=== PATIENT | female | born 1960 | race Caucasian/White ===

== ENCOUNTER 2017-03-31 08:27 | Emergency (ER) | payer MEDICARE, SELFPAY | END 2017-03-31 11:33 | disposition home or self-care (01) | PROVIDERS: Emergency Provider Emergency Medicine; Family Provider Emergency Medicine; Visit Provider Emergency Medicine | DX: J18.9 Pneumonia, unspecified organism (principal); J44.0 Chronic obstructive pulmonary disease with (acute) lower respiratory infection; E78.5 Hyperlipidemia, unspecified; Z79.01 Long term (current) use of anticoagulants; Z79.84 Long term (current) use of oral hypoglycemic drugs; Z79.4 Long term (current) use of insulin; Z79.899 Other long term (current) drug therapy; Z86.711 Personal history of pulmonary embolism; F17.210 Nicotine dependence, cigarettes, uncomplicated | CPT/HCPCS: 71020; 80053; 82550; 82553; 83605; 84484; 85025; 87040; 93005; 93041; 94640; 96365; 96367; 99284; J1956 ==

== ENCOUNTER 2017-05-06 15:14 | Outpatient (CLI) | payer MEDICARE, SELFPAY ==
[2017-05-08 15:04] LABS: PHA INR Fingerstick 3.2 (0.9-1.1)
== END 2017-05-06 17:06 | disposition home or self-care (01) ==
LOC: ACC 15:17
PROVIDERS: PCP Emergency Medicine; Visit Provider Emergency Medicine
DX: Z79.01 Long term (current) use of anticoagulants (principal); Z51.81 Encounter for therapeutic drug level monitoring
CPT/HCPCS: 85610; 99211; G0463

== ENCOUNTER 2017-05-30 08:40 | Outpatient (CLI) | payer MEDICARE, SELFPAY ==
[2017-05-30 14:19] LABS: PHA INR Fingerstick 2.5 (0.9-1.1)
== END 2017-05-30 16:31 | disposition home or self-care (01) ==
LOC: ACC 08:42
PROVIDERS: PCP Emergency Medicine; Visit Provider Emergency Medicine
DX: Z79.01 Long term (current) use of anticoagulants (principal); Z51.81 Encounter for therapeutic drug level monitoring
CPT/HCPCS: 85610; 99211; G0463

== ENCOUNTER 2017-06-02 20:11 | Emergency (ER) | payer MEDICARE, SELFPAY ==
--- NOTE | 2017-06-02 20:22 | XR_ITS ---
XR ankle RT min 3V HISTORY: Pain following injury ITS.REASON: TWISTED ANKLE ORDERING PHYSICIAN: Zaria Bowser PATIENT AGE: 56 years COMPARISON: None FINDINGS: No fracture or dislocation. No lytic or blastic change. There is normal mineralization.. The joint spaces are well-preserved. No significant degenerative/arthritic changes. No erosive changes evident. IMPRESSION: Negative ankle, no acute finding
[2017-06-02 20:31] VITALS: BP 161/92; PULSE 68; RESP 20; TEMP 36.6; O2SAT 96; BMI 30.4
--- NOTE | 2017-06-02 20:37 | HMH.EDUTC ---
[facility] – [place] Disposition Clinical Impression: Ankle sprain Disposition: Home, Self-Care Condition on Discharge: Good Instructions: DI for Ankle Pain Additional Instructions: *RICE, Rest the extremity, Ice 15-20 minutes 3-4 times daily, Compress- wear the max wrap as discussed as much as possible to help reduce swelling and pain, Elevate the extremity when at rest *Max wrap is for support and help control swelling, use it except in the shower. Be sure that is not to tight but not to loose either *Elevate when resting *Ibuprofen 600-800mg every 6-8 hours as needed for pain an inflammation. If need something more can take Tylenol in between doses of Ibuprofen to help Immediately follow up for new or worsening of symptoms, or no noticeable improvement over the next 3-5 days Referrals: Demario Gotti MD [Primary Care Provider] - Time of Disposition: 21:23 Medical Decision Making - Medical Records Medical records reviewed: Yes: I reviewed the patient's medical records. Vital Signs: 06/02/17 20:31 Temperature 97.8 F Temperature Source Temporal Artery Scan Pulse Rate [Right] 68 Respiratory Rate 20 Blood Pressure [Right Arm] 161/92 Blood Pressure Mean [Right Arm] 115 Blood Pressure Source [Right Arm] Automatic Cuff Blood Pressure Position [Right Arm] Sitting 02 Sat by Pulse Oximetry 96 Oxygen Delivery Method Room Air Orders (Tests/Meds): ORDERS Category Date Time Status XR ankle RT min 3V Stat Exams 06/02/17 20:22 Ordered - Radiology Data #1 Image(s): Ankle Image Reviewed: Yes I reviewed the patient's radiology image w/the ED provider Preliminary Findings: Normal/NAD, No Fracture Seen - Gabriel Inquiry Pt receiving controlled substance: No Gabriel was queried for this patient: No - Reevaluation(s) Reevaluation #1: Recommended crutches and paitent refused states that she may fall using crutches [facility] [place] HPI - General Stated complaint: stepped off step twisted right ankle Mode of Arrival: Ambulatory Source of Information: Patient Limitations: No Limitations Description of Symptoms (Recalled from Triage Doc. by RN): TWISTED RIGHT ANKLE TUESDAY MORNING HEENT Symptoms (Recalled from RN notes): No Resp Symptoms (Recalled from RN notes): No Skin Symptoms (Recalled from RN notes): No MS Symptoms (Recalled from RN notes): Yes Functional Status (Recalled from RN notes): N - History of Present Illness Provider Complaint: Patient states that she was stepping off her porch yesterday when her foot slipped on the step and twisted her right ankle State that she has been having pain and swelling in right foot and ankle ever since States that she went into work today and her boss noticed that her foot looked swollen so they recommended that she come in and get checked out - Related Data Home Medications Medication Instructions Recorded Confirmed Fluticasone/Vilanterol [Breo 1 inh INHALATION Q24H 06/02/17 06/02/17 Ellipta 100-25 Mcg INH] Insulin Detemir [Levemir 100 30 unit SUB-Q QHS 06/02/17 06/02/17 units/mL 10mL vial] buPROPion HCl [Wellbutrin 75mg 75 mg PO BID 06/02/17 06/02/17 Tablet] Previous Rx's Medication Instructions Recorded tizanidine 4 mg capsule 4 mg PO Q6H PRN #120 cap 05/23/17 Allergies Allergy/AdvReac Type Severity Reaction Status Date / Time rifampin [RIFAMPIN] Allergy Severe UNABLE TO Verified 06/02/17 20:35 BREATH tetanus and diphtheria Allergy Mild RED Verified 06/02/17 20:35 toxoids [TETANUS & DIPHTHERIA TOXOIDS] - Worker's Comp Is this a Worker's Comp case?: No [facility] History I have reviewed the patient's past medical history: Yes Medical History: Reports:: Diabetes Mellitus Type 1 - *Social History Smoking Status: Current every day smoker Tobacco Type: cigarettes Alcohol Intake: never - Psychiatric History Expresses thoughts of harming self/others: None Suicide Plan Description: No Plan ROS Obtained: Yes All systems re
--- NOTE | 2017-06-02 20:41 | ED_ITS ---
[facility] [place] Disposition Clinical Impression: Ankle sprain Disposition: Home, Self-Care Condition on Discharge: Good Instructions: DI for Ankle Pain Additional Instructions: *RICE, Rest the extremity, Ice 15-20 minutes 3-4 times daily, Compress- wear the max wrap as discussed as much as possible to help reduce swelling and pain, Elevate the extremity when at rest *Max wrap is for support and help control swelling, use it except in the shower. Be sure that is not to tight but not to loose either *Elevate when resting *Ibuprofen 600-800mg every 6-8 hours as needed for pain an inflammation. If need something more can take Tylenol in between doses of Ibuprofen to help Immediately follow up for new or worsening of symptoms, or no noticeable improvement over the next 3-5 days Referrals: Demario Gotti MD [Primary Care Provider] - Time of Disposition: 21:23 Medical Decision Making - Medical Records Medical records reviewed: Yes: I reviewed the patient's medical records. Vital Signs: 06/02/17 20:31 Temperature 97.8 F Temperature Source Temporal Artery Scan Pulse Rate [Right] 68 Respiratory Rate 20 Blood Pressure [Right Arm] 161/92 Blood Pressure Mean [Right Arm] 115 Blood Pressure Source [Right Arm] Automatic Cuff Blood Pressure Position [Right Arm] Sitting 02 Sat by Pulse Oximetry 96 Oxygen Delivery Method Room Air Orders (Tests/Meds): ORDERS Category Date Time Status XR ankle RT min 3V Stat Exams 06/02/17 20:22 Ordered - Radiology Data #1 Image(s): Ankle Image Reviewed: Yes I reviewed the patient's radiology image w/the ED provider Preliminary Findings: Normal/NAD, No Fracture Seen - Gabriel Inquiry Pt receiving controlled substance: No Gabriel was queried for this patient: No - Reevaluation(s) Reevaluation #1: Recommended crutches and paitent refused states that she may fall using crutches [facility] [place] HPI - General Stated complaint: stepped off step twisted right ankle Mode of Arrival: Ambulatory Source of Information: Patient Limitations: No Limitations Description of Symptoms (Recalled from Triage Doc. by RN): TWISTED RIGHT ANKLE TUESDAY MORNING HEENT Symptoms (Recalled from RN notes): No Resp Symptoms (Recalled from RN notes): No Skin Symptoms (Recalled from RN notes): No MS Symptoms (Recalled from RN notes): Yes Functional Status (Recalled from RN notes): N - History of Present Illness Provider Complaint: Patient states that she was stepping off her porch yesterday when her foot slipped on the step and twisted her right ankle State that she has been having pain and swelling in right foot and ankle ever since States that she went into work today and her boss noticed that her foot looked swollen so they recommended that she come in and get checked out - Related Data Home Medications Medication Instructions Recorded Confirmed Fluticasone/Vilanterol [Breo 1 inh INHALATION Q24H 06/02/17 06/02/17 Ellipta 100-25 Mcg INH] Insulin Detemir [Levemir 100 30 unit SUB-Q QHS 06/02/17 06/02/17 units/mL 10mL vial] buPROPion HCl [Wellbutrin 75mg 75 mg PO BID 06/02/17 06/02/17 Tablet] Previous Rx's Medication Instructions Recorded tizanidine 4 mg capsule 4 mg PO Q6H PRN #120 cap 05/23/17 Allergies Allergy/AdvReac Type Severity Reaction Status Date /
[2017-06-02 21:20] VITALS: BP 142/88; PULSE 88; RESP 20; TEMP 37.1
== END 2017-06-02 21:20 | disposition home or self-care (01) ==
PROVIDERS: Emergency Provider Nurse Practitioner; Family Provider Emergency Medicine; PCP Emergency Medicine
DX: S93.401A Sprain of unspecified ligament of right ankle, initial encounter (principal); X50.1XXA Overexertion from prolonged static or awkward postures, initial encounter; Y92.018 Other place in single-family (private) house as the place of occurrence of the external cause; E10.9 Type 1 diabetes mellitus without complications; F17.210 Nicotine dependence, cigarettes, uncomplicated; Z88.7 Allergy status to serum and vaccine; Z79.4 Long term (current) use of insulin
CPT/HCPCS: G0463; 73610; 99202

== ENCOUNTER 2017-06-29 13:12 | Outpatient (CLI) | payer MEDICARE, SELFPAY ==
[2017-06-29 15:14] LABS: PHA INR Fingerstick 2.9 (0.9-1.1)
== END 2017-06-29 15:16 | disposition home or self-care (01) ==
LOC: ACC 13:13
PROVIDERS: Family Provider Emergency Medicine; PCP Emergency Medicine; Visit Provider Emergency Medicine
DX: Z79.01 Long term (current) use of anticoagulants (principal)
CPT/HCPCS: 85610; 99211; G0463

== ENCOUNTER → 2017-07-18 14:16 | Outpatient (REF) | payer MEDICARE, SELFPAY | LOC: LAB 14:16 | PROVIDERS: Visit Provider Nurse Practitioner Family | DX: L02.01 Cutaneous abscess of face (principal) | CPT/HCPCS: 87070; 87077; 87186; 87205 ==

== ENCOUNTER 2017-07-21 13:47 | Outpatient (CLI) | payer MEDICARE, SELFPAY ==
[2017-07-21 15:55] LABS: PHA INR Fingerstick 1.6 (0.9-1.1)
== END 2017-07-21 14:56 | disposition home or self-care (01) ==
LOC: ACC 13:50
PROVIDERS: PCP Emergency Medicine; Visit Provider Emergency Medicine
DX: Z79.01 Long term (current) use of anticoagulants (principal); Z51.81 Encounter for therapeutic drug level monitoring
CPT/HCPCS: 85610; 99211; G0463

== ENCOUNTER 2017-10-14 15:27 | Outpatient (CLI) | payer MEDICARE, SELFPAY ==
[2017-10-14 16:09] LABS: PHA INR Fingerstick 1.4 (0.9-1.1)
== END 2017-10-14 16:12 | disposition home or self-care (01) ==
LOC: ACC 15:29
PROVIDERS: PCP Emergency Medicine; Visit Provider Emergency Medicine
DX: Z79.01 Long term (current) use of anticoagulants (principal); Z51.81 Encounter for therapeutic drug level monitoring
CPT/HCPCS: 85610; 99211; G0463

== ENCOUNTER 2017-11-01 15:44 | Outpatient (CLI) | payer MEDICARE, SELFPAY ==
[2017-11-01 16:26] LABS: PHA INR Fingerstick 1.9 (0.9-1.1)
== END 2017-11-01 16:28 | disposition home or self-care (01) ==
LOC: ACC 15:46
PROVIDERS: PCP Emergency Medicine; Visit Provider Emergency Medicine
DX: Z79.01 Long term (current) use of anticoagulants (principal); Z51.81 Encounter for therapeutic drug level monitoring
CPT/HCPCS: 85610; 99211; G0463

== ENCOUNTER 2017-11-18 15:23 | Outpatient (CLI) | payer MEDICARE, SELFPAY ==
[2017-11-18 16:14] LABS: PHA INR Fingerstick 2.1 (0.9-1.1)
== END 2017-11-18 16:16 | disposition home or self-care (01) ==
LOC: ACC 15:24
PROVIDERS: PCP Emergency Medicine; Visit Provider Emergency Medicine
DX: Z79.01 Long term (current) use of anticoagulants (principal); Z51.81 Encounter for therapeutic drug level monitoring; Z86.718 Personal history of other venous thrombosis and embolism
CPT/HCPCS: 85610; 99211; G0463

== ENCOUNTER → 2017-11-25 16:14 | Outpatient (CLI) | payer MEDICARE, SELFPAY ==
[2017-11-25 17:56] LABS: Basophils # 0.1 K/mm3 (0-0.2); Basophils % 0.5 % (0.1-2.0); Eosinophils # 0.2 K/mm3 (0.0-0.4); Hematocrit 36.4 % (37.0-47.0); Hemoglobin 11.6 g/dL (12.2-16.2); Lymphocytes # 3.1 K/mm3 (0.7-4.5); Lymphocytes % 34.5 K/mm3 (10-50); Mean Corpuscular Hemoglobin 27.7 pg (27.0-31.2); Mean Corpuscular Volume 86.6 fl (81-99); Mean Platelet Volume 10.7 fl (7.4-10.4); Monocytes # 0.4 K/mm3 (0.1-1.0); Monocytes % 4.5 % (1.7-9.3); Neutrophils # 5.3 K/mm3 (1.8-7.8); Neutrophils % 58.5 % (37.0-80.0); Platelet Count 202 K/mm3 (142-424); Red Cell Distribution Width 14.5 % (11.5-17.5); White Blood Count 9.1 K/mm3 (4.8-10.8)
[2017-11-25 18:00] LABS: Alanine Aminotransferase 25 U/L (12-78); Albumin Level 3.1 gm/dL (3.4-5.0); Albumin/Globulin Ratio 0.9 (1.1-1.8); Alkaline Phosphatase 74 U/L (46-116); Anion Gap 14.6 mEq/L (5-15); Aspartate Amino Transferase 12 U/L (15-37); Bilirubin,Total 0.1 mg/dL (0.2-1.0); Blood Urea Nitrogen 9 mg/dL (7-18); Calcium 8.2 mg/dL (8.5-10.1); Carbon Dioxide 27 mmol/L (21.0-32.0); Chloride 104 mmol/L (98-107); Creatinine,Serum 1.03 mg/dL (0.55-1.02); Estimated Glomerular Filt Rate 55 ml/min (>60); GFR (African American) 67 ML/MIN (>60); Globulin 3.4 gm/dl (1.3-3.2); Glucose 148 mg/dL (74-106); Potassium 3.6 mmoL/L (3.5-5.1); Sodium 142 mmol/L (136-145); Total Protein,Serum 6.5 gm/dL (6.4-8.2)
== END ==
PROVIDERS: Nurse Practitioner Family; Family Provider Emergency Medicine; PCP Emergency Medicine; Visit Provider Emergency Medicine
DX: E03.9 Hypothyroidism, unspecified; R19.7 Diarrhea, unspecified
CPT/HCPCS: 36415; 80053; 85025

== ENCOUNTER → 2017-12-09 15:10 | Outpatient (CLI) | payer MEDICARE, SELFPAY ==
[2017-12-09 15:51] LABS: INR 2.48 (0.9-1.1); Prothrombin Time 24.9 seconds (9.4-11.8)
[2017-12-09 16:05] LABS: Hemoglobin A1C 10.6 % (0.0-7.0)
[2017-12-09 16:37] LABS: Blood Urea Nitrogen 17 mg/dL (7-18); Estimated Glomerular Filt Rate 46 ml/min (>60); GFR (African American) 56 ML/MIN (>60)
== END ==
PROVIDERS: Nurse Practitioner Family; Family Provider Emergency Medicine; PCP Emergency Medicine; Visit Provider Emergency Medicine
DX: E11.9 Type 2 diabetes mellitus without complications (principal); Z79.01 Long term (current) use of anticoagulants; Z51.81 Encounter for therapeutic drug level monitoring
CPT/HCPCS: 36415; 82565; 83036; 84520; 85610

== ENCOUNTER → 2017-12-27 15:49 | Outpatient (REF) | payer MEDICARE, SELFPAY ==
[2017-12-29 13:23] LABS: Creatinine, Urine 22.5 mg/dL (Not Estab.); Microalbumin, Urine <3.0 ug/mL (Not Estab.)
== END ==
LOC: LAB 15:49
PROVIDERS: Visit Provider Emergency Medicine
DX: E11.9 Type 2 diabetes mellitus without complications (principal)
CPT/HCPCS: 82043; 82570

== ENCOUNTER 2018-01-20 15:35 | Outpatient (CLI) | payer MEDICARE, SELFPAY ==
[2018-01-20 16:17] LABS: PHA INR Fingerstick 2.1 (0.9-1.1)
== END 2018-01-20 16:29 | disposition home or self-care (01) ==
LOC: ACC 15:36
PROVIDERS: Family Provider Emergency Medicine; PCP Emergency Medicine; Visit Provider Emergency Medicine
DX: Z51.81 Encounter for therapeutic drug level monitoring (principal); Z79.01 Long term (current) use of anticoagulants; Z86.718 Personal history of other venous thrombosis and embolism
CPT/HCPCS: 85610; 99211; G0463

== ENCOUNTER 2018-02-09 15:43 | Outpatient (CLI) | payer MEDICARE, SELFPAY ==
--- NOTE | 2018-02-09 16:05 | MM_ITS ---
MM Dig screening mamm BI w/CAD CAD Screening COMPARISON: None, patient had previous mammograms more than 10 years ago in [place] and does not no location INDICATION: There is a history of breast cancer patient's mother and maternal cousin TECHNIQUE: Standard CC and MLO images were obtained. R2 CAD reviewed. FINDINGS: Moderate diffuse heterogenic fibro glandular densities are seen throughout both breasts. There is a mole marker in each breast. There is asymmetric fat and/or fatty breast parenchyma right axilla when compared to the left the patient states that she has known about this finding since she was a teenager. There are few benign-appearing calcifications right breast. There is focal arterial calcification in the subareolar region of each breast. There is no suspicious lesion and there are no suspicious microcalcifications. IMPRESSION: Moderate heterogenic density with no suspicious lesion seen BI-RADS Category: 2 Benign Finding(s) RECOMMENDED FOLLOW-UP: 1YR - 1 YEAR FOLLOW-UP (A letter has been sent to the patient regarding results of the study.)
[2018-02-09 16:29] LABS: PHA INR Fingerstick 1.9 (0.9-1.1)
== END 2018-02-09 16:31 | disposition home or self-care (01) ==
LOC: ACC 15:44
PROVIDERS: PCP Emergency Medicine; Visit Provider Emergency Medicine
DX: Z12.31 Encounter for screening mammogram for malignant neoplasm of breast (principal); Z79.01 Long term (current) use of anticoagulants
CPT/HCPCS: 77067; 85610; 99211; G0463

== ENCOUNTER 2018-03-20 15:04 | Outpatient (CLI) | payer MEDICARE, SELFPAY ==
[2018-03-20 15:50] LABS: PHA INR Fingerstick 2.3 (0.9-1.1)
== END 2018-03-20 15:53 | disposition home or self-care (01) ==
LOC: ACC 15:05
PROVIDERS: PCP Emergency Medicine; Visit Provider Emergency Medicine
DX: Z51.81 Encounter for therapeutic drug level monitoring (principal); Z79.01 Long term (current) use of anticoagulants
CPT/HCPCS: 85610; 99211; G0463

== ENCOUNTER 2018-04-12 15:53 | Outpatient (CLI) | payer MEDICARE, SELFPAY ==
[2018-04-12 16:31] LABS: PHA INR Fingerstick 2.4 (0.9-1.1)
== END 2018-04-12 16:33 | disposition home or self-care (01) ==
LOC: ACC 15:54
PROVIDERS: PCP Emergency Medicine; Visit Provider Emergency Medicine
DX: Z51.81 Encounter for therapeutic drug level monitoring (principal); Z79.01 Long term (current) use of anticoagulants
CPT/HCPCS: 85610; 99211; G0463

== ENCOUNTER → 2018-04-24 15:24 | Outpatient (CLI) | payer MEDICARE, SELFPAY ==
[2018-04-24 15:44] LABS: INR 1.07 (0.9-1.1)
== END ==
PROVIDERS: Visit Provider Surgery
DX: Z98.890 Other specified postprocedural states (principal)
CPT/HCPCS: 36415; 85610

== ENCOUNTER 2018-05-19 14:47 | Outpatient (CLI) | payer MEDICARE, SELFPAY ==
[2018-05-19 15:55] LABS: PHA INR Fingerstick 2.8 (0.9-1.1)
== END 2018-05-19 15:57 | disposition home or self-care (01) ==
LOC: ACC 14:48
PROVIDERS: PCP Emergency Medicine; Visit Provider Emergency Medicine
DX: Z51.81 Encounter for therapeutic drug level monitoring (principal); Z79.01 Long term (current) use of anticoagulants; Z86.718 Personal history of other venous thrombosis and embolism
CPT/HCPCS: 85610; 99211; G0463

== ENCOUNTER 2018-07-07 15:06 | Outpatient (CLI) | payer MEDICARE, SELFPAY ==
[2018-07-07 15:31] LABS: PHA INR Fingerstick 2.8 (0.9-1.1)
== END 2018-07-07 15:35 | disposition home or self-care (01) ==
LOC: ACC 15:08
PROVIDERS: PCP Emergency Medicine; Visit Provider Emergency Medicine
DX: Z51.81 Encounter for therapeutic drug level monitoring (principal); Z79.01 Long term (current) use of anticoagulants; Z86.718 Personal history of other venous thrombosis and embolism
CPT/HCPCS: 85610; 99211; G0463

== ENCOUNTER 2018-08-24 15:42 | Outpatient (CLI) | payer MEDICARE, SELFPAY ==
[2018-08-24 16:29] LABS: PHA INR Fingerstick 3.2 (0.9-1.1)
== END 2018-08-24 16:32 | disposition home or self-care (01) ==
LOC: ACC 15:43
PROVIDERS: PCP Emergency Medicine; Visit Provider Emergency Medicine
DX: Z51.81 Encounter for therapeutic drug level monitoring (principal); Z79.01 Long term (current) use of anticoagulants
CPT/HCPCS: 85610; 99211; G0463

== ENCOUNTER → 2018-09-21 08:06 | Outpatient (CLI) | payer MEDICARE, SELFPAY ==
[2018-09-21 09:10] LABS: Basophils # 0.1 K/mm3 (0-0.2); Basophils % 0.6 % (0.1-2.0); Eosinophils # 0.2 K/mm3 (0.0-0.4); Eosinophils % 1.9 % (0.1-12.0); Hematocrit 35.7 % (37.0-47.0); Hemoglobin 11.3 g/dL (12.2-16.2); Lymphocytes # 3.5 K/mm3 (0.7-4.5); Mean Corpuscular HGB Conc 31.7 g/dL (31.8-35.4); Mean Corpuscular Hemoglobin 27.7 pg (27.0-31.2); Mean Corpuscular Volume 87.3 fl (81-99); Monocytes # 0.4 K/mm3 (0.1-1.0); Monocytes % 4.3 % (1.7-9.3); Neutrophils # 4.1 K/mm3 (1.8-7.8); Neutrophils % 50.3 % (37.0-80.0); Platelet Count 178 K/mm3 (142-424); Red Blood Count 4.08 M/mm3 (4.20-5.40); Red Cell Distribution Width 15.3 % (11.5-17.5); White Blood Count 8.2 K/mm3 (4.8-10.8)
[2018-09-21 11:23] LABS: Alanine Aminotransferase 21 U/L (12-78); Albumin Level 3.6 gm/dL (3.4-5.0); Albumin/Globulin Ratio 1.1 (1.1-1.8); Alkaline Phosphatase 70 U/L (46-116); Anion Gap 18.6 mEq/L (5-15); Aspartate Amino Transferase 11 U/L (15-37); Bilirubin,Total 0.2 mg/dL (0.2-1.0); Blood Urea Nitrogen 18 mg/dL (7-18); Calcium 8.3 mg/dL (8.5-10.1); Carbon Dioxide 20 mmol/L (21.0-32.0); Chloride 106 mmol/L (98-107); Chol/HDL Ratio 4.6 (1-3.5); Cholesterol 146 mg/dL (140-200); Creatinine,Serum 1.36 mg/dL (0.55-1.02); Estimated Glomerular Filt Rate 40 ml/min (>60); GFR (African American) 48 ML/MIN (>60); Globulin 3.3 gm/dl (1.3-3.2); Glucose 137 mg/dL (74-106); HDL Cholesterol 32 mg/dL (29-89); LDL Cholesterol 65 mg/dL (0-130); Potassium 3.6 mmoL/L (3.5-5.1); Sodium 141 mmol/L (136-145); T4 (Thyroxine) 8.8 ug/dl (4.7-13.3); Thyroid Stimulating Hormone 2.21 uIU/ml (0.358-3.740); Total Protein,Serum 6.9 gm/dL (6.4-8.2); Triglycerides 246 mg/dL (30-200); VLDL Cholesterol 49 mg/dL (0-40)
[2018-09-21 11:55] LABS: INR 2.49 (0.9-1.1); Prothrombin Time 24.8 seconds (9.4-11.8)
[2018-09-21 14:22] LABS: Hemoglobin A1C 7.8 % (0.0-7.0)
[2018-09-22 20:51] LABS: Microalbumin, Urine 5.3 ug/mL (Not Estab.); Vitamin D 25 Hydroxy 8.1 ng/mL (30.0-100.0)
== END ==
PROVIDERS: Visit Provider Emergency Medicine
DX: E03.9 Hypothyroidism, unspecified (principal); E11.9 Type 2 diabetes mellitus without complications; E66.9 Obesity, unspecified; E78.5 Hyperlipidemia, unspecified; F32.9 Major depressive disorder, single episode, unspecified; I10 Essential (primary) hypertension; E55.9 Vitamin D deficiency, unspecified; Z51.81 Encounter for therapeutic drug level monitoring; Z79.01 Long term (current) use of anticoagulants; Z79.84 Long term (current) use of oral hypoglycemic drugs
CPT/HCPCS: 36415; 80053; 80061; 82043; 82652; 83036; 84436; 84443; 85025; 85610

== ENCOUNTER → 2018-09-29 17:19 | Outpatient (CLI) | payer MEDICARE, SELFPAY ==
[2018-09-29 18:39] LABS: Anion Gap 19.9 mEq/L (5-15); Blood Urea Nitrogen 27 mg/dL (7-18); Calcium 8.2 mg/dL (8.5-10.1); Carbon Dioxide 19 mmol/L (21.0-32.0); Chloride 103 mmol/L (98-107); Creatinine,Serum 2.64 mg/dL (0.55-1.02); Estimated Glomerular Filt Rate 19 ml/min (>60); GFR (African American) 22 ML/MIN (>60); Glucose 131 mg/dL (74-106); Potassium 3.9 mmoL/L (3.5-5.1); Sodium 138 mmol/L (136-145)
== END ==
PROVIDERS: Visit Provider Emergency Medicine
DX: R11.10 Vomiting, unspecified (principal); R19.7 Diarrhea, unspecified
CPT/HCPCS: 80048

== ENCOUNTER 2018-09-30 09:26 | Observation (INO) ==
--- NOTE | 2018-09-30 10:47 | Emergency Department Note ---
ED Disposition Clinical Impression: Dehydration, Nausea vomiting and diarrhea, Diabetes, Hypothyroidism, Renal insufficiency, Anemia, Ileus Disposition: Still a Patient Condition on Discharge: Fair Instructions: DI for Acute Abdomen Referrals: Demario Gotti MD [Primary Care Provider] - - Critical Care Critical Care Time: No Attestation: On 09/30/18, the high probability of a clinically significant, sudden or life threatening deterioration of the following system(s) required my full and direct attention, intervention and personal management. The time I documented below is in addition to time spent performing reported procedures but includes the following listed in this critical care notation. Medical Decision Making - Gabriel Inquiry Pt receiving controlled substance: No Gabriel was queried for this patient: No Vital Signs: 09/30/18 09:29 09/30/18 09:39 09/30/18 10:18 Temperature 99.3 F Temperature Source Oral Pulse Rate [Left Radial] 88 102 H Pulse Rate [Orthostatic Lying Left Radial] 89 Pulse Rate [Orthostatic Sitting Left Radial] 95 H Pulse Rate [Orthostatic Standing Left Radial] 102 H Respiratory Rate 18 Blood Pressure [Orthostatic Lying Right Arm] 94/58 L Blood Pressure [Orthostatic Sitting Right Arm] 96/58 L Blood Pressure [Orthostatic Standing Right Arm] 95/50 L Blood Pressure [Right Arm] 90/57 L 97/74 L Blood Pressure Mean [Right Arm] 68 81 Blood Pressure Source [Right Arm] Automatic Cuff Blood Pressure Position [Right Arm] Sitting 02 Sat by Pulse Oximetry 93 L 98 Oxygen Delivery Method Room Air 09/30/18 10:38 09/30/18 11:00 09/30/18 11:35 Temperature Temperature Source Pulse Rate [Left Radial] 86 86 87 Pulse Rate [Orthostatic Lying Left Radial] Pulse Rate [Orthostatic Sitting Left Radial] Pulse Rate [Orthostatic Standing Left Radial] Respiratory Rate Blood Pressure [Orthostatic Lying Right Arm] Blood Pressure [Orthostatic Sitting Right Arm] Blood Pressure [Orthostatic Standing Right Arm] Blood Pressure [Right Arm] 104/56 L 107/57 L 92/44 L Blood Pressure Mean [Right Arm] 72 73 60 Blood Pressure Source [Right Arm] Blood Pressure Position [Right Arm] 02 Sat by Pulse Oximetry 97 94 L 95 Oxygen Delivery Method - Lab Data Lab Results 09/30/18 10:05: WBC 4.6 L, RBC 3.98 L, Hgb 11.0 L, Hct 35.0 L, MCV 88.1, MCH 27.5, MCHC 31.3 L, RDW 15.1, Plt Count 225, MPV 11.0 H, Neut % (Auto) 61.6, Lymph % (Auto) 27.3, [place] % (Auto) 9.0, Eos % (Auto) 1.7, Baso % (Auto) 0.4, Neut # (Auto) 2.8, Lymph # (Auto) 1.3, [place] # (Auto) 0.4, Eos # (Auto) 0.1, Baso # (Auto) 0.0 09/30/18 10:05: Sodium 139, Potassium 3.9, Chloride 103, Carbon Dioxide 20 L, Anion Gap 19.9 H, BUN 28 H, Creatinine 2.65 H, Estimated Creat Clear 36, Estimated GFR 18 L*, Est GFR ( Amer) 22 L, Glucose 95 D, Calcium 8.6, Magnesium 1.3 L, Total Bilirubin 0.5, AST 26, ALT 27, Alkaline Phosphatase 87, Total Protein 7.8, Albumin 3.3 L, Globulin 4.5 H, Albumin/Globulin Ratio 0.7 L, Lipase 37 L Result diagrams: 09/30/18 10:05 09/30/18 10:05 Orders (Tests/Meds): ORDERS Category Date Time Status Acute abdomen XR series [XR acute abdomen series] Stat Exams 09/30/18 10:42 Taken Diarrhea 23 Panel, PCR Stat Lab 09/30/18 10:43 Ordered - Radiology Data #1 Image(s): Chest, Abdomen Image Reviewed: Yes I reviewed the patient's radiology image Preliminary Findings: Abnormal Chest x-ray: No acute findings. KUB flat and upright: Positive for mild dilatation multiple fluid levels, early ileus. Medical Decision Narrative: I discussed her history, clinical examination, radiologic and laboratory findings with her primary care physician Dr. Gotti who wanted to admit her yesterday. He was agreeable to admit her today for IV fluid rehydration, symptomatic treatment and bowel rest. Nausea/Vomiting/Diarrhea HPI - General Chief complaint: Abdominal Pain Stated complaint: low blood pressure/ cant keep any food down Time Seen by Provider: 09/30/18 09:40 Mode of Arrival: Wheelchair Limitations: No Limitations Description of Symptoms (Recalled from ER Triage Doc. by RN): c/o abdomen pain, n/v/d. Was seen by her PCP yesteday who she states wanted to admit her for low blood pressure and dehydration but she was unable to get a ride to the hospital yesterday or last night . - History of Present Illness HPI Narrative: 58 years old white female with history of hypothyroidism, diabetes mellitus, and traumatic brain injury from an accident 2005. 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 6 days ago she developed an episode of diarrhea more than 20 times a day and she was seen by the primary care physician where she was given Imodium she felt slightly better. The continued to have nausea and had only one meal since then. Today she was seen by the primary care physician complained of weakness, dizziness, and she was found to have a blood pressure in the 80s she was advised for admission but she declined due to transportation. Yesterday, she had one semi-for mid bowel movement, he needs to be nauseous and denies vomiting. She denies having hematemesis coffee-ground emesis melanotic stool or bleeding per rectum. She denies having chest pain shortness of breath or pa lpitations. she denies having dysuria hematuria or frequency. Today the patient the patient presented to the ED continues to complain of dehydration symptoms, weakness and requesting to be admitted MD complaint: nausea, diarrhea Onset (ago): day(s) (5 days ago) Description of Vomiting: watery Description of Diarrhea: water Associated Abdominal Pain: No Location of pain: diffuse Consistency: intermittent Relieving factors: medication Exacerbating factors: none Associated symptoms: nausea/vomiting - Related Data Home Medications Medication Instructions Recorded Confirmed Acetaminophen [Tylenol 500mg 500 mg PO NEEDED PRN 04/20/18 09/29/18 tablet] Ibuprofen [Ibuprofen 600mg 600 mg PO NEEDED PRN 04/20/18 09/29/18 Tablet] Pantoprazole Sodium [Protonix 40mg 40 mg PO DAILY 04/20/18 09/29/18 tablet] Previous Rx's Medication Instructions Recorded atorvastatin 20 mg tablet 20 mg PO QHS #90 tab 04/25/18 bupropion HCl 75 mg tablet 75 mg PO BID #180 tab 05/29/18 metformin 500 mg tablet 500 mg PO BID #180 tab 05/29/18 verapamil ER 180 mg 24 hr 180 mg PO QAM #90 cap 05/29/18 capsule,extended release insulin NPH isophane U-100 human 23 unit SQ BID #10 ml 08/18/18 100 unit/mL subcutaneous suspension trazodone 50 mg tablet 50 mg PO DAILY #30 tab 08/18/18 warfarin 5 mg tablet 7.5 mg PO DIRECTED #135 tab 08/18/18 tizanidine 4 mg tablet See Rx Instructions .ROUTE 09/14/18 .COMPLEX #120 tablet citalopram 20 mg tablet 20 mg PO DAILY #90 tab 09/25/18 levothyroxine 100 mcg tablet 100 mcg PO DAILY #90 tab 09/25/18 topiramate 50 mg tablet 50 mg PO BID #90 tab 09/25/18 lisinopril 2.5 mg tablet 2.5 mg PO DAILY #30 tab 09/26/18 ondansetron HCl 4 mg tablet 4 mg PO TID PRN 5 Days #14 tab 09/26/18 pregabalin 75 mg capsule 75 mg PO BID #60 cap 09/29/18 Allergies Allergy/AdvReac Type Severity Reaction Status Date / Time rifampin [RIFAMPIN] Allergy Severe UNABLE TO Verified 09/29/18 15:52 BREATH tetanus and diphtheria Allergy Mild RED Verified 09/29/18 15:52 toxoids [TETANUS & DIPHTHERIA TOXOIDS] [facility] History - Hepatitis A Screen Drug use history?: No High risk sexual behaviors?: No History of sexually transmitted infection?: No Currently employed?: No Childcare worker?: No Do you have indoor plumbing?: Yes Do you have electricity?: Yes Attestation statement:: This patient has been screened for Hepatitis A risk factors. I have reviewed the patient's past medical history: Yes Medical History: Reports:: Anxiety, Chronic Obstructive Pulmonary Disease (COPD), Cerebrovascular Accident, Depression, Diabetes Mellitus Type 2, Hyperlipidemia, Lung Disease, Migraine Denies:: Diabetes Mellitus Type 1, Internal Pacemaker, Seizures Other Medical History: Reports: Hypothyroidism, Other Other Surgeries: Yes: Appendectomy. No: Pacemaker Amputation: No Fractures: Yes Comment: MRSA x2, ovarian cyst removal, Left Knee, Neck fusion. - Social History Smoking Status: Current every day smoker Tobacco Type: cigarettes # Packs/Day (cigarettes): 1 Alcohol Intake: never Substance Use Type: opiates Occupational Status: employed, disabled - Psychiatric History Expresses thoughts of harming self/others: None Suicide Plan Description: No Plan Pschychiatric History:: Reports:: Anxiety, Depression Family Hx:: Cancer, Coronary Artery Disease ROS Obtained: Yes All systems reviewed & no additional complaints Physical Exam - General General appearance: alert, in no apparent distress - Head Head exam: atraumatic, normocephalic, normal inspection - Eye Eye exam: Present: normal appearance, PERRL, EOMI, other (She does have lazy eye.). Absent: scleral icterus, nystagmus - ENT ENT exam: Present: normal exam, normal oropharynx, mucous membranes dry, TM's normal bilaterally, normal external ear exam - Neck Neck exam: Present: normal inspection, full ROM, trachea midline. Absent: meningismus, lymphadenopathy - Chest Chest inspection: Present: normal inspection, symmetric chest wall rise. Absent: tenderness - Respiratory Respiratory exam: Present: normal lung sounds bilaterally. Absent: respiratory distress, wheezes, stridor - Cardiovascular Cardiovascular exam: Present: regular rate, normal rhythm, normal heart sounds. Absent: JVD - Abdominal Exam Abdominal exam: Present: soft, hypoactive bowel sounds, other (The abdomen is s oft, slightly distended, no focal tenderness no guarding no rigidity with hypoactive bowel sounds. ). Absent: distention, tenderness, guarding, rebound, rigidity - External exam: Present: normal external exam - Extremities Exam Extremities exam: Present: normal inspection, full ROM, normal capillary refill. Absent: calf tenderness - Back Exam Back exam: Present: normal inspection. Absent: tenderness, CVA tenderness (R), CVA tenderness (L) - Neurological Exam Neurological exam: Present: alert, oriented X3, motor sensory deficit, reflexes normal - Psychiatric Psychiatric exam: Present: normal affect, normal mood - Skin Skin exam: Present: warm, dry, intact, normal color, other (inelastic skin) - Lymphatic Lymphatic Findings: no adenopathy
[2018-09-30 10:51] LABS: Basophils % 0.4 % (0.1-2.0); Eosinophils # 0.1 K/mm3 (0.0-0.4); Eosinophils % 1.7 % (0.1-12.0); Lymphocytes # 1.3 K/mm3 (0.7-4.5); Lymphocytes % 27.3 % (10-50); Mean Corpuscular HGB Conc 31.3 g/dL (31.8-35.4); Mean Corpuscular Volume 88.1 fl (81-99); Monocytes # 0.4 K/mm3 (0.1-1.0); Neutrophils # 2.8 K/mm3 (1.8-7.8); Neutrophils % 61.6 % (37.0-80.0); Platelet Count 225 K/mm3 (142-424); Red Blood Count 3.98 M/mm3 (4.20-5.40); Red Cell Distribution Width 15.1 % (11.5-17.5); White Blood Count 4.6 K/mm3 (4.8-10.8)
[2018-09-30 11:07] LABS: Albumin Level 3.3 gm/dL (3.4-5.0); Albumin/Globulin Ratio 0.7 (1.1-1.8); Anion Gap 19.9 mEq/L (5-15); Bilirubin,Total 0.5 mg/dL (0.2-1.0); Calcium 8.6 mg/dL (8.5-10.1); Globulin 4.5 gm/dl (1.3-3.2); Total Protein,Serum 7.8 gm/dL (6.4-8.2)
[2018-09-30 13:01] LABS: Prothrombin Time 43.9 seconds (9.4-11.8)
[2018-09-30 13:02] LABS: INR 4.54 (0.9-1.1)
[2018-09-30 15:24] LABS: Microscopic, Urine URINE MICROSCOPIC (MICROSCOPIC)
[2018-09-30 15:26] LABS: Appearance,Urine CLEAR (Clear); Bilirubin,Urine Negative (Negative); Blood, Urine Negative (Negative); Color,Urine YELLOW (Yellow); Glucose,Urine (UA) Negative (Negative); Ketones,Urine Negative (Negative); Leukocyte Esterase,Urine Negative (Negative); Protein,Urine Negative (Negative); Urobilinogen,Urine 0.2 EU/dl (0.2)
[2018-09-30 15:34] LABS: Bacteria,Urine 1+ /lpf; Squamous Epithelial Cell,Urine Occasional #/hpf (0-5); WBC,Urine Occasional #/hpf (0-3)
--- NOTE | 2018-09-30 20:33 | History & Physical Report ---
*Admission Date: 09/30/18 *Chief complaint: weakness *History of present illness: this wf had episodes of vomiting and diarrhea earlier in week and was seen by pcp - she reports diarrhea improved but had weakness and then dev abd pain with distended abd - she was seen in the ed - years old white female with history of hypothyroidism, diabetes mellitus, and traumatic brain injury from an accident 2005. 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 6 days ago she developed an episode of diarrhea more than 20 times a day and she was seen by the primary care physician where she was given Imodium she felt slightly better. The continued to have nausea and had only one meal since then. Today she was seen by the primary care physician complained of weakness, dizziness, and she was found to have a blood pressure in the 80s she was advised for admission but she declined due to transportation. Yesterday, she had one semi-for mid bowel movement, he needs to be nauseous and denies vomiting. She denies having hematemesis coffee-ground emesis melanotic stool or bleeding per rectum. She denies having chest pain shortness of breath or palpitations. she denies having dysuria hematuria or frequency. [facility] History I have reviewed the patient's past medical history: Yes Medical History: Reports:: Anxiety, Chronic Obstructive Pulmonary Disease (COPD), Cerebrovascular Accident, Depression, Diabetes Mellitus Type 2, Hyperlipidemia, Lung Disease, Migraine Denies:: Diabetes Mellitus Type 1, Internal Pacemaker, Seizures *Have you ever received a pneumonia vaccine?: Yes *Have you received a flu vaccine this season?: Yes Other Medical History: Reports: Hypothyroidism, Other Other Surgeries: Yes: Appendectomy. No: Pacemaker Amputation: No Fractures: Yes - *Social History Educational Level: Completed College Smoking Status: Current every day smoker Tobacco Type: cigarettes # Packs/Day (cigarettes): 1 Alcohol Intake: never Substance Use Type: opiates *Occupational Status:: employed, disabled *Travel in the last 8 weeks: None - Psychiatric History Expresses thoughts of harming self/others: None Suicide Plan Description: No Plan Pschychiatric History:: Reports:: Anxiety, Depression Family Hx:: No significant family history Review of Systems - Review of Systems Review of systems:: pertinent systems reviewed and negative unless documented below - Constitutional Reports weakness, Denies fever(s) - Eyes Denies change in vision - ENT Denies dizziness, Denies sore throat - *Cardiovascular Denies chest pain at rest - *Respiratory Denies cough - *Gastrointestinal Reports abdominal pain, Reports nausea, Reports vomiting, Denies black, tarry stools - *Genitourinary Denies blood in urine - *Musculoskeletal Denies joint pain, Denies neck pain - Integumentary/Breasts Denies rash - *Neurologic Denies dizziness, Denies frequent falls, Denies seizure-like activity - Psychiatric Denies anxiety Meds Home Medications Medication Instructions Recorded Confirmed Type Acetaminophen [Tylenol 500mg 500 mg PO NEEDED PRN 04/20/18 09/30/18 History tablet] Ibuprofen [Ibuprofen 600mg 600 mg PO NEEDED PRN 04/20/18 09/30/18 History Tablet] Pantoprazole Sodium [Protonix 40mg 40 mg PO DAILY 04/20/18 09/30/18 History tablet] atorvastatin 20 mg tablet 20 mg PO QHS #90 tab 04/25/18 09/30/18 Rx bupropion HCl 75 mg tablet 75 mg PO BID #180 tab 05/29/18 09/30/18 Rx metformin 500 mg tablet 500 mg PO BID #180 tab 05/29/18 09/30/18 Rx verapamil ER 180 mg 24 hr 180 mg PO QAM #90 cap 05/29/18 09/30/18 Rx capsule,extended release insulin NPH isophane U-100 human 23 unit SQ BID #10 ml 08/18/18 09/30/18 Rx 100 unit/mL subcutaneous suspension warfarin 5 mg tablet 7.5 mg PO DIRECTED #135 tab 08/18/18 09/30/18 Rx citalopram 20 mg tablet 20 mg PO DAILY #90 tab 09/25/18 09/30/18 Rx levothyroxine 100 mcg tablet 100 mcg PO DAILY #90 tab 09/25/18 09/30/18 Rx topiramate 50 mg tablet 50 mg PO BID #90 tab 09/25/18 09/30/18 Rx ondansetron HCl 4 mg tablet 4 mg PO TID PRN 5 Days #14 tab 09/26/18 09/30/18 Rx Lisinopril [Lisinopril 2.5mg Tab] 2.5 mg PO DAILY 09/30/18 09/30/18 History Pregabalin [Lyrica 75mg Cap] 75 mg PO BID 09/30/18 09/30/18 History Tizanidine HCl [Zanaflex 4mg See Rx Instructions .ROUTE .COMPLEX 09/30/18 09/30/18 History tab] Trazodone HCl 50 mg PO DAILY 09/30/18 09/30/18 History Allergies Allergy/AdvReac Type Severity Reaction Status Date / Time rifampin [RIFAMPIN] Allergy Severe UNABLE TO Verified 09/29/18 15:52 BREATH tetanus and diphtheria Allergy Mild RED Verified 09/29/18 15:52 toxoids [TETANUS & DIPHTHERIA TOXOIDS] Exam Vital signs and Labs for Last 24 Hours: Temp Pulse Resp BP Pulse Ox 99.8 F H 100 H 18 130/66 97 09/30/18 15:39 09/30/18 15:39 09/30/18 15:39 09/30/18 15:39 09/30/18 15:39 Laboratory Results - last 24 hr 09/30/18 10:05: WBC 4.6 L, RBC 3.98 L, Hgb 11.0 L, Hct 35.0 L, MCV 88.1, MCH 27.5, MCHC 31.3 L, RDW 15.1, Plt Count 225, MPV 11.0 H, Neut % (Auto) 61.6, Lymph % (Auto) 27.3, [place] % (Auto) 9.0, Eos % (Auto) 1.7, Baso % (Auto) 0.4, Neut # (Auto) 2.8, Lymph # (Auto) 1.3, [place] # (Auto) 0.4, Eos # (Auto) 0.1, Baso # (Auto) 0.0 09/30/18 10:05: Sodium 139, Potassium 3.9, Chloride 103, Carbon Dioxide 20 L, Anion Gap 19.9 H, BUN 28 H, Creatinine 2.65 H, Estimated Creat Clear 36, Estimated GFR 18 L*, Est GFR ( Amer) 22 L, Glucose 95 D, Calcium 8.6, Magnesium 1.3 L, Total Bilirubin 0.5, AST 26, ALT 27, Alkaline Phosphatase 87, Total Protein 7.8, Albumin 3.3 L, Globulin 4.5 H, Albumin/Globulin Ratio 0.7 L, Lipase 37 L 09/30/18 10:05: PT 43.9 H, INR 4.54 H 09/30/18 14:37: Urine Color Yellow, Urine Appearance Clear, Urine pH 6.0, Ur Specific [place] 1.010, Urine Protein Negative, Urine Glucose (UA) Negative, Urine Ketones Negative, Urine Blood Negative, Urine Nitrate Negative, Urine Bilirubin Negative, Urine Urobilinogen 0.2, Ur Leukocyte Esterase Negative, Urine WBC Occasional, Ur Squamous Epith Cells Occasional, Urine Bacteria 1+ I & O for Last 24 hours: Intake & Output 09/28/18 09/29/18 09/30/18 10/01/18 11:59 11:59 11:59 11:59 Intake Total 861 / 861 Output Total 300 / 300 Balance 561 / 561 Weight 220 lb 228 lb 8 oz - Constitutional no acute distress, obese - *Routine HEENT Exam Head: Present: normocephalic Eye: Present: EOMI, PERRL. Absent: conjunctival icterus ENT: Present: mucous membranes dry - *Routine Neck Exam Present: supple - *Routine Respiratory Exam Present: CTA bilaterally - *Routine Cardiovascular Exam Present: RRR, murmur, S4 - *Routine Abdominal Exam Present: soft, tenderness, distended - *Routine Extremities Exam Absent: calf tenderness - *Routine Skin Exam Present: intact - *Routine Neurological Exam Present: alert. Absent: motor deficit old ocular changes - Routine Psychiatric Exam Present: normal affect Assessment and Plan (1) Renal insufficiency Current visit: Yes Status: Acute Category: Medical Code(s): N28.9 - Disorder of kidney and ureter, unspecified (2) Obesity (BMI 30-39.9) Current visit: No Status: Acute Category: Medical Code(s): E66.9 - Obesity, unspecified (3) Hypothyroidism (acquired) Current visit: Yes Status: Acute Category: Medical Code(s): E03.9 - Hypothyroidism, unspecified (4) Diabetes mellitus Current visit: Yes Status: Acute Qualifiers: Diabetes mellitus type: type 2 Diabetes mellitus exterminator insulin use: with exterminator use Diabetes mellitus complication status: with other specified complication Qualified Code(s): E11.69 - Type 2 diabetes mellitus with other specified complication; Z79.4 - petroleum terminal plant operator (current) use of insulin Category: Medical Code(s): E11.9 - Type 2 diabetes mellitus without complications (5) Hyperlipidemia Current visit: Yes Status: Acute Qualifiers: Hyperlipidemia type: unspecified Qualified Code(s): E78.5 - Hyperlipidemia, unspecified Category: Medical Code(s): E78.5 - Hyperlipidemia, unspecified (6) Patent foramen ovale Current visit: Yes Status: Acute Category: Medical Code(s): Q21.1 - Atrial septal defect (7) Enterocolitis Current visit: Yes Status: Acute Category: Medical Code(s): K52.9 - Noninfective gastroenteritis and colitis, unspecified (8) Severe sepsis Current visit: Yes Status: Acute Category: Medical Code(s): A41.9 - Seps is, unspecified organism; R65.20 - Severe sepsis without septic shock (9) Elevated erythrocyte sedimentation rate Current visit: Yes Status: Acute Category: Medical Code(s): R70.0 - Elevated erythrocyte sedimentation rate (10) Elevated C-reactive protein Current visit: Yes Status: Acute Category: Medical Code(s): R79.82 - Elevated C-reactive protein (CRP)
[2018-09-30 23:14] LABS: Basophils % 0.5 % (0.1-2.0); Eosinophils % 0.9 % (0.1-12.0); Hematocrit 32.6 % (37.0-47.0); Hemoglobin 10.2 g/dL (12.2-16.2); Lymphocytes # 1.2 K/mm3 (0.7-4.5); Lymphocytes % 25.9 % (10-50); Mean Corpuscular HGB Conc 31.2 g/dL (31.8-35.4); Mean Corpuscular Volume 86.9 fl (81-99); Mean Platelet Volume 10.4 fl (7.4-10.4); Monocytes # 0.3 K/mm3 (0.1-1.0); Monocytes % 7.2 % (1.7-9.3); Neutrophils % 65.5 % (37.0-80.0); Platelet Count 206 K/mm3 (142-424); Red Blood Count 3.75 M/mm3 (4.20-5.40); Red Cell Distribution Width 15.1 % (11.5-17.5); White Blood Count 4.6 K/mm3 (4.8-10.8)
[2018-09-30 23:38] LABS: Erythrocyte Sedimentation Rate > 140 mm/hr (0-30)
[2018-10-01 06:47] LABS: Basophils % 0.6 % (0.1-2.0); Eosinophils # 0.1 K/mm3 (0.0-0.4); Eosinophils % 1.3 % (0.1-12.0); Hematocrit 32.1 % (37.0-47.0); Hemoglobin 10.6 g/dL (12.2-16.2); Lymphocytes # 1.2 K/mm3 (0.7-4.5); Lymphocytes % 21.1 % (10-50); Mean Corpuscular HGB Conc 32.8 g/dL (31.8-35.4); Mean Corpuscular Volume 86.9 fl (81-99); Mean Platelet Volume 10.7 fl (7.4-10.4); Monocytes # 0.4 K/mm3 (0.1-1.0); Monocytes % 7.1 % (1.7-9.3); Neutrophils % 69.8 % (37.0-80.0); Platelet Count 192 K/mm3 (142-424); White Blood Count 5.7 K/mm3 (4.8-10.8)
[2018-10-01 07:00] LABS: Anion Gap 18.7 mEq/L (5-15); Chol/HDL Ratio 5.4 (1-3.5)
[2018-10-01 07:05] LABS: INR 6.25 (0.9-1.1); Prothrombin Time 59.6 seconds (9.4-11.8)
--- NOTE | 2018-10-01 08:16 | Progress Note ---
Internal Medicine - PN: Subj *Date: 10/01/18 *Time: 08:12 Interval history: pt looks better today Exam Vital signs and Labs for Last 24 Hours: Temp Pulse Resp BP Pulse Ox 98.7 F 103 H 15 127/63 95 10/01/18 07:48 10/01/18 04:00 10/01/18 07:48 10/01/18 07:48 10/01/18 07:48 Laboratory Results - last 24 hr 09/30/18 10:05: WBC 4.6 L, RBC 3.98 L, Hgb 11.0 L, Hct 35.0 L, MCV 88.1, MCH 27.5, MCHC 31.3 L, RDW 15.1, Plt Count 225, MPV 11.0 H, Neut % (Auto) 61.6, Lymph % (Auto) 27.3, [place] % (Auto) 9.0, Eos % (Auto) 1.7, Baso % (Auto) 0.4, Neut # (Auto) 2.8, Lymph # (Auto) 1.3, [place] # (Auto) 0.4, Eos # (Auto) 0.1, Baso # (Auto) 0.0 09/30/18 10:05: Sodium 139, Potassium 3.9, Chloride 103, Carbon Dioxide 20 L, Anion Gap 19.9 H, BUN 28 H, Creatinine 2.65 H, Estimated Creat Clear 36, Estimated GFR 18 L*, Est GFR ( Amer) 22 L, Glucose 95 D, Calcium 8.6, Magnesium 1.3 L, Total Bilirubin 0.5, AST 26, ALT 27, Alkaline Phosphatase 87, Total Protein 7.8, Albumin 3.3 L, Globulin 4.5 H, Albumin/Globulin Ratio 0.7 L, Lipase 37 L 09/30/18 10:05: PT 43.9 H, INR 4.54 H 09/30/18 14:37: Urine Color Yellow, Urine Appearance Clear, Urine pH 6.0, Ur Specific [place] 1.010, Urine Protein Negative, Urine Glucose (UA) Negative, Urine Ketones Negative, Urine Blood Negative, Urine Nitrate Negative, Urine Bilirubin Negative, Urine Urobilinogen 0.2, Ur Leukocyte Esterase Negative, Urine WBC Occasional, Ur Squamous Epith Cells Occasional, Urine Bacteria 1+ 09/30/18 23:05: WBC 4.6 L, RBC 3.75 L, Hgb 10.2 L, Hct 32.6 L, MCV 86.9, MCH 27.1, MCHC 31.2 L, RDW 15.1, Plt Count 206, MPV 10.4, Neut % (Auto) 65.5, Lymph % (Auto) 25.9, [place] % (Auto) 7.2, Eos % (Auto) 0.9, Baso % (Auto) 0.5, Neut # (Auto) 3.0, Lymph # (Auto) 1.2, [place] # (Auto) 0.3, Eos # (Auto) 0.0, Baso # (Auto) 0.0, ESR > 140 H 09/30/18 23:05: C-Reactive Protein 33.5 H 09/30/18 23:05: Acetone Level None detected 10/01/18 02:00: Lactate 0.5 10/01/18 06:39: WBC 5.7, RBC 3.70 L, Hgb 10.6 L, Hct 32.1 L, MCV 86.9, MCH 28.6, MCHC 32.8, RDW 15.0, Plt Count 192, MPV 10.7 H, Neut % (Auto) 69.8, Lymph % (Auto) 21.1, [place] % (Auto) 7.1, Eos % (Auto) 1.3, Baso % (Auto) 0.6, Neut # (Auto) 4.0, Lymph # (Auto) 1.2, [place] # (Auto) 0.4, Eos # (Auto) 0.1, Baso # (Auto) 0.0 10/01/18 06:39: Sodium 141, Potassium 3.7, Chloride 106, Carbon Dioxide 20 L, Anion Gap 18.7 H, BUN 20 H D, Creatinine 1.39 H D, Estimated Creat Clear 73, Estimated GFR 39 L, Est GFR ( Amer) 47 L D, Glucose 147 H D, Calcium 8.0 L, Magnesium 1.7 D, Triglycerides 135, Cholesterol 87 L, LDL Cholesterol 44, VLDL Cholesterol 27, HDL Cholesterol 16 L, Cholesterol/HDL Ratio 5.4 H 10/01/18 06:39: PT 59.6 H, INR 6.25 H I & O for Last 24 hours: Intake & Output 06/13/09/29/18 09/30/18 10/01/18 11:59 11:59 11:59 11:59 Intake Total 2355 / 2355 Output Total 1100 / 1100 Balance 1255 / 1255 Weight 220 lb 231 lb 1 oz - Constitutional no acute distress, obese - *Routine HEENT Exam Head: Present: normocephalic Eye: Present: EOMI, PERRL ENT: Present: mucous membranes dry - *Routine Neck Exam Present: supple - *Routine Respiratory Exam Present: CTA bilaterally - *Routine Cardiovascular Exam Present: RRR, murmur - *Routine Abdominal Exam Present: soft - *Routine Extremities Exam Absent: calf tenderness - *Routine Skin Exam Present: intact - Routine Psychiatric Exam Present: normal affect Assessment and Plan (1) Renal insufficiency Current visit: Yes Status: Acute Category: Medical Code(s): N28.9 - Disorder of kidney and ureter, unspecified (2) Obesity (BMI 30-39.9) Current visit: No Status: Acute Category: Medical Code(s): E66.9 - Obesity, unspecified (3) Hypothyroidism (acquired) Current visit: Yes Status: Acute Category: Medical Code(s): E03.9 - Hypothyroidism, unspecified (4) Diabetes mellitus Current visit: Yes Status: Acute Qualifiers: Diabetes mellitus type: type 2 Diabetes mellitus moth exterminator insulin use: with shelter use Diabetes mellitus complication status: with other specified complication Qualified Code(s): E11.69 - Type 2 diabetes mellitus with other specified complication; Z79.4 - ferry terminal agent (current) use of insulin Category: Medical Code(s): E11.9 - Type 2 diabetes mellitus without complications (5) Hyperlipidemia Current visit: Yes Status: Acute Qualifiers: Hyperlipidemia type: unspecified Qualified Code(s): E78.5 - Hyperlipidemia, unspecified Category: Medical Code(s): E78.5 - Hyperlipidemia, unspecified (6) Patent foramen ovale Current visit: Yes Status: Acute Category: Medical Code(s): Q21.1 - Atrial septal defect (7) Enterocolitis Current visit: Yes Status: Acute Category: Medical Code(s): K52.9 - Noninfective gastroenteritis and colitis, unspecified (8) Severe sepsis Current visit: Yes Status: Acute Category: Medical Code(s): A41.9 - Sepsis, unspecified organism; R65.20 - Severe sepsis without septic shock (9) Elevated erythrocyte sedimentation rate Current visit: Yes Status: Acute Category: Medical Code(s): R70.0 - Elevated erythrocyte sedimentation rate (10) Elevated C-reactive protein Current visit: Yes Status: Acute Category: Medical Code(s): R79.82 - Elevated C-reactive protein (CRP) (11) Elevated INR Current visit: Yes Status: Acute Category: Medical Code(s): R79.1 - Abno rmal coagulation profile
--- NOTE | 2018-10-01 10:39 | Pharmacy Consult Notes ---
[facility] Pharmacy VTE Monitoring - Patient Demographics Admission date: 09/30/18 Report Date: 10/01/18 Time: 10:38 Allergies/Adverse Reactions: Patient Allergies rifampin [RIFAMPIN] Allergy (Severe, Verified 09/29/18 15:52) UNABLE TO BREATH tetanus and diphtheria toxoids [TETANUS & DIPHTHERIA TOXOIDS] Allergy (Mild, Verified 09/29/18 15:52) RED Height: 1.74 m Weight: 104.808 kg Patient Problems: Current Active Problems (Updated 10/01/18 @ 08:19 by Demario Gotti MD) Dehydration (Acute) Nausea vomiting and diarrhea (Acute) Renal insufficiency (Acute) Anemia (Acute) Ileus (Acute) Hypothyroidism (acquired) (Acute) Diabetes mellitus (Acute) Hyperlipidemia (Acute) Patent foramen ovale (Acute) Enterocolitis (Acute) Severe sepsis (Acute) Elevated erythrocyte sedimentation rate (Acute) Elevated C-reactive protein (Acute) Elevated INR (Acute) Hypothyroidism (Chronic) Diabetes (Chronic) - VTE Risk Labs: VTE Related Lab Results Hgb 10.6 g/dL (12.2-16.2) L 10/01/18 06:39 Hct 32.1 % (37.0-47.0) L 10/01/18 06:39 Plt Count 192 K/mm3 (142-424) 10/01/18 06:39 PT 59.6 seconds (9.4-11.8) H 10/01/18 06:39 INR 6.25 (0.9-1.1) H 10/01/18 06:39 BUN 20 mg/dL (7-18) H D 10/01/18 06:39 Creatinine 1.39 mg/dL (0.55-1.02) H D 10/01/18 06:39 Estimated Creat Clear 73 mL/min (50-200) 10/01/18 06:39 VTE Score: 5 VTE Risk Level: Low Risk - Prophylaxis VTE Prophylaxis Ordered?: Yes Types of VTE Prophylaxis: TEDS Knee High, Pharmacological Location of Applied Device: Bilateral Lower Extremeties Pharmacologic Type: Warfarin (INR=6.25)
--- NOTE | 2018-10-01 15:42 | Consult Report ---
*Admission Date: 09/30/18 *Reason for consult:: Ileus. *History of present illness: Ms. Ramirez is a 58-year-old female who presents with week long illness complicated by nausea and vomiting and subsequent diarrhea. Multiple loose bowel movements. Over 20/day. Progressive weakness. In and out evaluations w ith her primary care physician are noted. Significant other medical comorbidities including chronic obstructive pulmonary disease and prior CVA. Failure to progress prompted evaluation and [facility]. Subsequently admitted. No hematochezia or melena. Bowel movements described as watery and light brown. Minimal abdominal pain although Ms. Ramirez reports some tenderness with exam. No shortness of breath. To this point in time, complaints have been attributed to viral GI illness. Review of Systems - Review of Systems Review of systems:: pertinent systems reviewed and negative unless documented below - Constitutional Reports fatigue, Reports lack of energy, Reports weakness - *Respiratory Reports shortness of breath with activity - *Gastrointestinal Reports bloating, Reports change in stools, Reports loose stools, Reports na usea, Reports vomiting - *Musculoskeletal Reports muscle weakness - *Neurologic Reports weakness, Denies dizziness, Denies frequent falls, Denies seizure-like activity [facility] History Medical History: Reports:: Anxiety, Chronic Obstructive Pulmonary Disease (COPD), Cerebrovascular Accident, Depression, Diabetes Mellitus Type 2, Hyperlipidemia, Lung Disease, Migraine Denies:: Diabetes Mellitus Type 1, Internal Pacemaker, Seizures *Have you ever received a pneumonia vaccine?: Yes *Have you received a flu vaccine this season?: Yes Other Medical History: Reports: Hypothyroidism, Other Other Surgeries: Yes: Appendectomy. No: Pacemaker Amputation: No Fractures: Yes - *Social History Educational Level: Completed College Smoking Status: Current every day smoker Tobacco Type: cigarettes # Packs/Day (cigarettes): 1 Alcohol Intake: never Substance Use Type: opiates *Occupational Status:: employed, disabled *Travel in the last 8 weeks: None - Psychiatric History Expresses thoughts of harming self/others: None Suicide Plan Description: No Plan Pschychiatric History:: Reports:: Anxiety, Depression Family Hx:: No significant family history Meds Home Medications Medication Instructions Recorded Confirmed Type Acetaminophen [Tylenol 500mg 500 mg PO NEEDED PRN 04/20/18 09/30/18 History tablet] Ibuprofen [Ibuprofen 600mg 600 mg PO NEEDED PRN 04/20/18 09/30/18 History Tablet] Pantoprazole Sodium [Protonix 40mg 40 mg PO DAILY 04/20/18 09/30/18 History tablet] metformin 500 mg tablet 500 mg PO BID #180 tab 05/29/18 09/30/18 Rx insulin NPH isophane U-100 human 23 unit SQ BID #10 ml 08/18/18 09/30/18 Rx 100 unit/mL subcutaneous suspension citalopram 20 mg tablet 20 mg PO DAILY #90 tab 09/25/18 09/30/18 Rx levothyroxine 100 mcg tablet 100 mcg PO DAILY #90 tab 09/25/18 09/30/18 Rx topiramate 50 mg tablet 50 mg PO BID #90 tab 09/25/18 09/30/18 Rx ondansetron HCl 4 mg tablet 4 mg PO TID PRN 5 Days #14 tab 09/26/18 09/30/18 Rx Lisinopril [Lisinopril 2.5mg Tab] 2.5 mg PO DAILY 09/30/18 09/30/18 History Pregabalin [Lyrica 75mg Cap] 75 mg PO BID 09/30/18 09/30/18 History Tizanidine HCl [Zanaflex 4mg 4 mg PO Q6HP PRN 09/30/18 10/01/18 History tab] Trazodone HCl 50 mg PO HS 09/30/18 10/01/18 History Atorvastatin Calcium [Atorvastatin 20 mg PO HS 10/01/18 10/01/18 History 20mg Tab] Verapamil HCl [Verapamil ER] 180 mg PO DAILY 10/01/18 10/01/18 History Warfarin Sodium 5 mg PO SUTUTHSA 10/01/18 10/01/18 History Warfarin Sodium 7.5 mg PO MOWEFR 10/01/18 10/01/18 History buPROPion HCl [Wellbutrin 75mg 75 mg PO BID 10/01/18 10/01/18 History Tablet] Allergies Allergy/AdvReac Type Severity Reaction Status Date / Time rifampin [RIFAMPIN] Allergy Severe UNABLE TO Verified 09/29/18 15:52 BREATH tetanus and diphtheria Allergy Mild RED Verified 09/29/18 15:52 toxoids [TETANUS & DIPHTHERIA TOXOIDS] Exam Vital signs and Labs for Last 24 Hours: Temp Pulse Resp BP Pulse Ox 100.1 F H 103 H 15 127/63 95 10/01/18 14:46 10/01/18 04:00 10/01/18 07:48 10/01/18 07:48 10/01/18 08:00 Laboratory Results - last 24 hr 09/30/18 23:05: WBC 4.6 L, RBC 3.75 L, Hgb 10.2 L, Hct 32.6 L, MCV 86.9, MCH 27.1, MCHC 31.2 L, RDW 15.1, Plt Count 206, MPV 10.4, Neut % (Auto) 65.5, Lymph % (Auto) 25.9, [place] % (Auto) 7.2, Eos % (Auto) 0.9, Baso % (Auto) 0.5, Neut # (Auto) 3.0, Lymph # (Auto) 1.2, [place] # (Auto) 0.3, Eos # (Auto) 0.0, Baso # (Auto) 0.0, ESR > 140 H 09/30/18 23:05: C-Reactive Protein 33.5 H 09/30/18 23:05: Acetone Level None detected 10/01/18 02:00: Lactate 0.5 10/01/18 06:39: WBC 5.7, RBC 3.70 L, Hgb 10.6 L, Hct 32.1 L, MCV 86.9, MCH 28.6, MCHC 32.8, RDW 15.0, Plt Count 192, MPV 10.7 H, Neut % (Auto) 69.8, Lymph % (Auto) 21.1, [place] % (Auto) 7.1, Eos % (Auto) 1.3, Baso % (Auto) 0.6, Neut # (Auto) 4.0, Lymph # (Auto) 1.2, [place] # (Auto) 0.4, Eos # (Auto) 0.1, Baso # (Auto) 0.0 10/01/18 06:39: Sodium 141, Potassium 3.7, Chloride 106, Carbon Dioxide 20 L, Anion Gap 18.7 H, BUN 20 H D, Creatinine 1.39 H D, Estimated Creat Clear 73, Estimated GFR 39 L, Est GFR ( Amer) 47 L D, Glucose 147 H D, Calcium 8.0 L, Magnesium 1.7 D, Triglycerides 135, Cholesterol 87 L, LDL Cholesterol 44, VLDL Cholesterol 27, HDL Cholesterol 16 L, Cholesterol/HDL Ratio 5.4 H 10/01/18 06:39: PT 59.6 H, INR 6.25 H I & O for Last 24 hours: Intake & Output 09/29/18 09/30/18 10/01/18 10/02/18 11:59 11:59 11:59 11:59 Intake Total 2455 / 2455 Output Total 1100 / 1100 Balance 1355 / 1355 Weight 99.79 kg 104.808 kg - Constitutional no acute distress - *Routine Respiratory Exam Present: CTA bilaterally - *Routine Cardiovascular Exam Present: RRR - *Routine Abdominal Exam Present: soft Results - Labs 10/01/18 06:39 10/01/18 06:39 Laboratory Results - last 24 hr 09/30/18 23:05: WBC 4.6 L, RBC 3.75 L, Hgb 10.2 L, Hct 32.6 L, MCV 86.9, MCH 27.1, MCHC 31.2 L, RDW 15.1, Plt Count 206, MPV 10.4, Neut % (Auto) 65.5, Lymph % (Auto) 25.9, [place] % (Auto) 7.2, Eos % (Auto) 0.9, Baso % (Auto) 0.5, Neut # (Auto) 3.0, Lymph # (Auto) 1.2, [place] # (Auto) 0.3, Eos # (Auto) 0.0, Baso # (Auto) 0.0, ESR > 140 H 09/30/18 23:05: C-Reactive Protein 33.5 H 09/30/18 23:05: Acetone Level None detected 10/01/18 02:00: Lactate 0.5 10/01/18 06:39: WBC 5.7, RBC 3.70 L, Hgb 10.6 L, Hct 32.1 L, MCV 86.9, MCH 28.6, MCHC 32.8, RDW 15.0, Plt Count 192, MPV 10.7 H, Neut % (Auto) 69.8, Lymph % (Auto) 21.1, [place] % (Auto) 7.1, Eos % (Auto) 1.3, Baso % (Auto) 0.6, Neut # (Auto) 4.0, Lymph # (Auto) 1.2, [place] # (Auto) 0.4, Eos # (Auto) 0.1, Baso # (Auto) 0.0 10/01/18 06:39: Sodium 141, Potassium 3.7, Chloride 106, Carbon Dioxide 20 L, Anion Gap 18.7 H, BUN 20 H D, Creatinine 1.39 H D, Estimated Creat Clear 73, Estimated GFR 39 L, Est GFR ( Amer) 47 L D, Glucose 147 H D, Calcium 8.0 L, Magnesium 1.7 D, Triglycerides 135, Cholesterol 87 L, LDL Cholesterol 44, VLDL Cholesterol 27, HDL Cholesterol 16 L, Cholesterol/HDL Ratio 5.4 H 10/01/18 06:39: PT 59.6 H, INR 6.25 H - Imaging CT scan - abdomen: report reviewed, image reviewed CT scan - pelvis: report reviewed, image reviewed Assessment and Plan (1) Renal insufficiency Current visit: Yes Status: Acute Category: Medical Code(s): N28.9 - Disorder of kidney and ureter, unspecified (2) Obesity (BMI 30-39.9) Current visit: No Status: Acute Category: Medical Code(s): E66.9 - Obesity, unspecified (3) Hypothyroidism (acquired) Current visit: Yes Status: Acute Category: Medical Code(s): E03.9 - Hypothyroidism, unspecified (4) Diabetes mellitus Current visit: Yes Status: Acute Qualifiers: Diabetes mellitus type: type 2 Diabetes mellitus group home insulin use: with ocean transportation intermediary use Diabetes mellitus complication status: with other specified complication Qualified Code(s): E11.69 - Type 2 diabetes mellitus with other specified complication; Z79.4 - meterman (current) use of insulin Category: Medical Code(s): E11.9 - Type 2 diabetes mellitus without complications (5) Hyperlipidemia Current visit: Yes Status: Acute Qualifiers: Hyperlipidemia type: unspecified Qualified Code(s): E78.5 - Hyperlipidemia, unspecified Category: Medical Code(s): E78.5 - Hyperlipidemia, unspecified (6) Patent foramen ovale Current visit: Yes Status: Acute Category: Medical Code(s): Q21.1 - Atrial septal defect (7) Enterocolitis Current visit: Yes Status: Acute Category: Medical Code(s): K52.9 - Noninfective gastroenteritis and colitis, unspecified (8) Severe sepsis Current visit: Yes Status: Acute Category: Medical Code(s): A41.9 - Sepsis, unspecified organism; R65.20 - Severe sepsis without septic shock (9) Elevated erythrocyte sedimentation rate Current visit: Yes Status: Acute Category: Medical Code(s): R70.0 - Elevated erythrocyte sedimentation rate (10) Elevated C-reactive protein Current visit: Yes Status: Acute Category: Medical Code(s): R79.82 - Elevated C-reactive protein (CRP) (11) Elevated INR Current visit: Yes Status: Acute Category: Medical Code(s): R79.1 - Abnormal coagulation profile - Assessment and plan all Dx Assessment and Plan for all problems:: 1. Nausea and vomiting. Diarrhea. Presents with dehydration as demonstrated with laboratory evaluation and clinical examination. CT imaging obtained. Images reviewed. Report reviewed. Findings demonstrating questionable enteritis and proximal colitis. Patient self reports irritable bowel syndrome during her adult life. Complaints and clinical presentation most likely associated with viral GI illness. Awaiting stool studies. C. difficile colitis is possible although WBC is normal and this would be unlikely with the current clinical history. No prior diagnosis of inflammatory bowel disease is noted. CT report questioning possible stump appendicitis does not seem to be accurate, as well. Prior appendectomy noted. Recommend supportive care. IV fluids. Oral intake as tolerated. Await further stool studies. No operative intervention indicated at this time. In regards to possible ileus; patient reports resumption of bowel function today without nausea or emesis. Decreased abdominal distention is also reported. Continue as above.
[2018-10-02 06:50] LABS: Basophils % 0.5 % (0.1-2.0); Eosinophils # 0.2 K/mm3 (0.0-0.4); Eosinophils % 2.2 % (0.1-12.0); Hematocrit 28.8 % (37.0-47.0); Lymphocytes # 1.9 K/mm3 (0.7-4.5); Lymphocytes % 28.8 % (10-50); Mean Corpuscular HGB Conc 30.8 g/dL (31.8-35.4); Mean Platelet Volume 9.6 fl (7.4-10.4); Monocytes # 0.6 K/mm3 (0.1-1.0); Monocytes % 8.2 % (1.7-9.3); Neutrophils # 4.1 K/mm3 (1.8-7.8); Neutrophils % 60.4 % (37.0-80.0); Platelet Count 199 K/mm3 (142-424); Red Blood Count 3.27 M/mm3 (4.20-5.40); Red Cell Distribution Width 15.2 % (11.5-17.5); White Blood Count 6.7 K/mm3 (4.8-10.8)
[2018-10-02 07:15] LABS: Anion Gap 11.5 mEq/L (5-15); Calcium 7.5 mg/dL (8.5-10.1)
--- NOTE | 2018-10-02 11:52 | Progress Note ---
Subjective Narrative: Patient is a 58-year-old white female who was admitted with abdominal pain, distention, numerous watery bowel movements, and some vomiting. She states that she had about 32 liquid bowel movements over a period of 24 hours. She then had some significant abdominal distention. She was admitted for inpatient management. She did have a CT scan of the abdomen and pelvis performed without any contrast whatsoever which revealed some distention of the small bowel to the terminal ileum with evidence of small bowel stool sign. There is also some possible thickening of the cecum. It should be noted that I had performed colonoscopy on the patient 1 year ago and she had some distal hyperplastic polyps but otherwise unremarkable. Of note, the patient is on Coumadin for PFO and had an INR of 6.25. She was seen by the surgeon staff consultant this past weekend and conservative nonoperative management was recommended. Patient did have a stool study performed which was positive for Campylobacter. Patient states that she feels much better. She has some minor tenderness in the right lower quadrant. She has some minimal nausea. She is tolerating clear liquids. She has had only a couple of loose stools today. Exam Vital signs and Labs for Last 24 Hours: Temp Pulse Resp BP Pulse Ox 98.1 F 69 19 120/71 94 L 10/02/18 08:00 10/02/18 08:00 10/02/18 08:00 10/02/18 08:00 10/02/18 08:25 Laboratory Results - last 24 hr 10/01/18 11:20: Stl Aeromonas (PCR) Not detected, Stl C. cayetanensis PCR Not detected, Stool Rotavirus (PCR) Not detected, Stl Adenov F 40/41 PCR Not detected, Stool Astrovirus (PCR) Not detected, Stool Campylobacter PCR Detected A, Stl C.difficile Tox PCR Not detected, Stool Cryptosporidium PCR Not detected, Stl E.coli Shiga Tox PCR Not detected, Stool E coli O157 PCR Not detected, Stl Enterotoxigenic E PCR Not detected, Stool EPEC (PCR) Not detected, Stool EAEC (PCR) Not detected, Stl E. histolytica PCR Not detected, Stool Giardia Lamblia PCR Not detected, Stool Salmonella PCR Not detected, Stool Sapovirus (PCR) Not detected, Stl P. shigelloides PCR Not detected, Stl Shigella/EIEC PCR Not detected, St Y.enterocolitica PCR Not detected, Stool Vibrio (PCR) Not detected, Stl Vibrio cholerae PCR Not detected, Stl Norovirus GI/GII PCR Not detected 10/01/18 21:45: POC Glucose 149 H 10/02/18 06:25: WBC 6.7, RBC 3.27 L, Hct 28.8 L, MCV 88.0, MCH 27.1, MCHC 30.8 L , RDW 15.2, Plt Count 199, MPV 9.6, Neut % (Auto) 60.4, Lymph % (Auto) 28.8, [place] % (Auto) 8.2, Eos % (Auto) 2.2, Baso % (Auto) 0.5, Neut # (Auto) 4.1, Lymph # (Auto) 1.9, [place] # (Auto) 0.6, Eos # (Auto) 0.2, Baso # (Auto) 0.0 10/02/18 06:25: Sodium 141, Potassium 3.5, Chloride 110 H, Carbon Dioxide 23, Anion Gap 11.5, BUN 13 D, Creatinine 1.07 H D, Estimated Creat Clear 97, Estimated GFR 53 L, Est GFR ( Amer) 64 D, Glucose 119 H, Calcium 7.5 L I & O for Last 24 hours: Intake & Output 09/29/18 09/30/18 10/01/18 10/02/18 11:59 11:59 11:59 11:59 Intake Total 2455 / 2455 3821 / 3821 Output Total 1100 / 1100 Balance 1355 / 1355 3821 / 3821 Weight 220 lb 231 lb 1 oz 236 lb - *Routine Abdominal Exam Present: soft Comments: Only minimal subjective tenderness in the right lower quadrant without guarding or rebound. Progress Note: A&P (1) Renal insufficiency Status: Acute Current Visit: Yes (2) Obesity (BMI 30-39.9) Status: Acute Current Visit: No (3) Hypothyroidism (acquired) Status: Acute Current Visit: Yes (4) Diabetes mellitus Status: Acute Current Visit: Yes (5) Hyperlipidemia Status: Acute Current Visit: Yes (6) Patent foramen ovale Status: Acute Current Visit: Yes (7) Enterocolitis Status: Acute Current Visit: Yes (8) Severe sepsis Status: Acute Current Visit: Yes (9) Elevated erythrocyte sedimentation rate Status: Acute Current Visit: Yes (10) Elevated C-reactive protein Status: Acute Current Visit: Yes (11) Elevated INR Status: Acute Current Visit: Yes Assessment and Plan for All Diagnoses:: Clinical history and stool studies consistent with Campylobacter enterocolitis. Continue medical management. I will obtain a CT scan for interval assessment with IV and oral contrast.
--- NOTE | 2018-10-02 12:26 | Progress Note ---
Internal Medicine - PN: Subj *Date: 10/02/18 *Time: 08:00 Interval history: doing better with positive stool for campylobacter Exam Vital signs and Labs for Last 24 Hours: Temp Pulse Resp BP Pulse Ox 98.1 F 69 19 120/71 94 L 10/02/18 08:00 10/02/18 08:00 10/02/18 08:00 10/02/18 08:00 10/02/18 08:25 Laboratory Results - last 24 hr 10/01/18 11:20: Stl Aeromonas (PCR) Not detected, Stl C. cayetanensis PCR Not detected, Stool Rotavirus (PCR) Not detected, Stl Adenov F 40/41 PCR Not detected, Stool Astrovirus (PCR) Not detected, Stool Campylobacter PCR Detected A, Stl C.difficile Tox PCR Not detected, Stool Cryptosporidium PCR Not detected, Stl E.coli Shiga Tox PCR Not detected, Stool E coli O157 PCR Not detected, Stl Enterotoxigenic E PCR Not detected, Stool EPEC (PCR) Not detected, Stool EAEC (PCR) Not detected, Stl E. histolytica PCR Not detected, Stool Giardia Lamblia PCR Not detected, Stool Salmonella PCR Not detected, Stool Sapovirus (PCR) Not detected, Stl P. shigelloides PCR Not detected, Stl Shigella/EIEC PCR Not detected, St Y.enterocolitica PCR Not detected, Stool Vibrio (PCR) Not detected, Stl Vibrio cholerae PCR Not detected, Stl Norovirus GI/GII PCR Not detected 10/01/18 21:45: POC Glucose 149 H 10/02/18 06:25: WBC 6.7, RBC 3.27 L, Hct 28.8 L, MCV 88.0, MCH 27.1, MCHC 30.8 L , RDW 15.2, Plt Count 199, MPV 9.6, Neut % (Auto) 60.4, Lymph % (Auto) 28.8, [place] % (Auto) 8.2, Eos % (Auto) 2.2, Baso % (Auto) 0.5, Neut # (Auto) 4.1, Lymph # (Auto) 1.9, [place] # (Auto) 0.6, Eos # (Auto) 0.2, Baso # (Auto) 0.0 10/02/18 06:25: Sodium 141, Potassium 3.5, Chloride 110 H, Carbon Dioxide 23, Anion Gap 11.5, BUN 13 D, Creatinine 1.07 H D, Estimated Creat Clear 97, Estimated GFR 53 L, Est GFR ( Amer) 64 D, Glucose 119 H, Calcium 7.5 L I & O for Last 24 hours: Intake & Output 09/30/18 10/01/18 10/02/18 10/03/18 11:59 11:59 11:59 11:59 Intake Total 2455 / 2455 3821 / 3821 Output Total 1100 / 1100 Balance 1355 / 1355 3821 / 3821 Weight 220 lb 231 lb 1 oz 236 lb - Constitutional no acute distress - *Routine HEENT Exam Head: Present: normocephalic Eye: Present: EOMI, PERRL ENT: Present: mucous membranes dry - *Routine Neck Exam Present: supple - *Routine Respiratory Exam Present: CTA bilaterally - *Routine Cardiovascular Exam Present: RRR - *Routine Abdominal Exam Present: soft - *Routine Extremities Exam Present: cyanosis - *Routine Skin Exam Present: intact - *Routine Neurological Exam Present: alert, oriented X3, CN II-XII intact - Routine Psychiatric Exam Present: normal affect Assessment and Plan (1) Renal insufficiency Current visit: Yes Status: Acute Category: Medical Code(s): N28.9 - Disorder of kidney and ureter, unspecified (2) Obesity (BMI 30-39.9) Current visit: No Status: Acute Category: Medical Code(s): E66.9 - Obesity, unspecified (3) Hypothyroidism (acquired) Current visit: Yes Status: Acute Category: Medical Code(s): E03.9 - Hypoth yroidism, unspecified (4) Diabetes mellitus Current visit: Yes Status: Acute Qualifiers: Diabetes mellitus type: type 2 Diabetes mellitus half-way insulin use: with half-way use Diabetes mellitus complication status: with other specified complication Qualified Code(s): E11.69 - Type 2 diabetes mellitus with other specified complication; Z79.4 - marine oil terminal superintendent (current) use of insulin Category: Medical Code(s): E11.9 - Type 2 diabetes mellitus without complications (5) Hyperlipidemia Current visit: Yes Status: Acute Qualifiers: Hyperlipidemia type: unspecified Qualified Code(s): E78.5 - Hyperlipidemia, unspecified Category: Medical Code(s): E78.5 - Hyperlipidemia, unspecified (6) Patent foramen ovale Current visit: Yes Status: Acute Category: Medical Code(s): Q21.1 - Atrial septal defect (7) Enterocolitis Current visit: Yes Status: Acute Category: Medical Code(s): K52.9 - Noninfective gastroenteritis and colitis, unspecified (8) Severe sepsis Current visit: Yes Status: Acute Category: Medical Code(s): A41.9 - Sepsis, unspecified organism; R65.20 - Severe sepsis without septic shock (9) Elevated erythrocyte sedimentation rate Current visit: Yes Status: Acute Category: Medical Code(s): R70.0 - Elevated erythrocyte sedimentation rate (10) Elevated C-reactive protein Current visit: Yes Status: Acute Category: Medical Code(s): R79.82 - Elevated C-reactive protein (CRP) (11) Elevated INR Current visit: Yes Status: Acute Category: Medical Code(s): R79.1 - Abnormal coagulation profile (12) Campylobacter enteritis Current visit: Yes Status: Acute Category: Medical Code(s): A04.5 - Campylobacter enteritis
[2018-10-03 06:24] LABS: Basophils # 0.1 K/mm3 (0-0.2); Basophils % 0.9 % (0.1-2.0); Eosinophils # 0.2 K/mm3 (0.0-0.4); Eosinophils % 2.4 % (0.1-12.0); Hematocrit 29.9 % (37.0-47.0); Lymphocytes % 28.9 % (10-50); Mean Corpuscular HGB Conc 30.1 g/dL (31.8-35.4); Mean Corpuscular Volume 89.7 fl (81-99); Mean Platelet Volume 9.2 fl (7.4-10.4); Monocytes # 0.5 K/mm3 (0.1-1.0); Monocytes % 7.2 % (1.7-9.3); Neutrophils # 4.2 K/mm3 (1.8-7.8); Neutrophils % 60.6 % (37.0-80.0); Platelet Count 201 K/mm3 (142-424); Red Blood Count 3.33 M/mm3 (4.20-5.40); Red Cell Distribution Width 15.3 % (11.5-17.5); White Blood Count 6.9 K/mm3 (4.8-10.8)
[2018-10-03 06:40] LABS: Anion Gap 12.9 mEq/L (5-15); Calcium 7.8 mg/dL (8.5-10.1)
[2018-10-03 09:12] LABS: INR 3.96 (0.9-1.1); Prothrombin Time 38.6 seconds (9.4-11.8)
--- NOTE | 2018-10-03 09:25 | Discharge Summary ---
General - General Admission date:: 09/30/18 Discharge date: 10/03/18 HPI HPI: this wf had episodes of vomiting and diarrhea earlier in week and was seen by pcp - she reports diarrhea improved but had weakness and then dev abd pain with distended abd - she was seen in the ed - years old white female with history of hypothyroidism, diabetes mellitus, and traumatic brain injury from an accident 2005. 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 6 days ago she developed an episode of diarrhea more than 20 times a day and she was seen by the primary care physician where she was given Imodium she felt slightly better. The continued to have nausea and had only one meal since then. Today she was seen by the primary care physician complained of weakness, dizziness, and she was found to have a blood pressure in the 80s she was advised for admission but she declined due to transportation. Yesterday, she had one semi-for mid bowel movement, he needs to be nauseous and denies vomiting. She denies having hematemesis coffee-ground emesis melanotic stool or bleeding per rectum. She denies having chest pain shortness of breath or palpitations. she denies having dysuria hematuria or frequency. Hospital Course Hospital Course: IV fluids for hydration-vital signs have been stable without fever. Stool positive for Campylobacter treated with Zithromax Patient is chronically on Coumadin for PFO-PT and INR on was 43.9 and 4.54, on 59.6 and 6.25, 10/03 38.6 and 3.96-we will have pharmacy to discuss with patient when to restart her Coumadin and dosing. Patient's white count today is 6.9, the amount and frequency of diarrhea has decreased per patient. Patient will be discharged home today with 1 more dose of Zithromax 500 mg. Patient will follow-up in the office. Patient needs to monitor signs and symptoms of any bleeding. Discussed with patient risk of high PT/INR. Objective Vital signs: Temp Pulse Resp BP Pulse Ox 98.6 F 66 18 158/73 H 96 10/03/18 07:48 10/03/18 07:48 10/03/18 07:48 10/03/18 07:48 10/03/18 08:18 no acute distress - *Routine HEENT Exam Head: Present: normocephalic ENT: Present: mucous membranes moist Comments: strabismus - *Routine Neck Exam Present: full ROM - *Routine Respiratory Exam Present: CTA bilaterally - *Routine Cardiovascular Exam Present: RRR - *Routine Abdominal Exam Present: soft, normoactive bowel sounds. Absent: tenderness, distended - *Routine Extremities Exam Present: full ROM - Routine Back/Spine/Pelvis Exam Back/Spine: Present: full ROM - *Routine Skin Exam Present: intact - *Routine Neurological Exam Present: alert, oriented X3 - Routine Psychiatric Exam Present: normal affect Results Labs on day of discharge: Labs from last 24 hours 10/03/18 10/03/18 10/03/18 05:56 05:56 05:56 WBC 6.9 RBC 3.33 L Hgb 9.0 L Hct 29.9 L MCV 89.7 MCH 27.0 MCHC 30.1 L RDW 15.3 Plt Count 201 MPV 9.2 Neut % (Auto) 60.6 Lymph % (Auto) 28.9 [place] % (Auto) 7.2 Eos % (Auto) 2.4 Baso % (Auto) 0.9 Neut # (Auto) 4.2 Lymph # (Auto) 2.0 [place] # (Auto) 0.5 Eos # (Auto) 0.2 Baso # (Auto) 0.1 PT 38.6 H INR 3.96 H Sodium 143 Potassium 3.9 Chloride 112 H Carbon Dioxide 22 Anion Gap 12.9 BUN 9 D Creatinine 0.89 Estimated Creat Clear 115 Estimated GFR 65 Est GFR ( Amer) 79 D Glucose 99 Calcium 7.8 L 10/02/18 06:25 WBC RBC Hgb 9.0 L D Hct MCV MCH MCHC RDW Plt Count MPV Neut % (Auto) Lymph % (Auto) [place] % (Auto) Eos % (Auto) Baso % (Auto) Neut # (Auto) Lymph # (Auto) [place] # (Auto) Eos # (Auto) Baso # (Auto) PT INR Sodium Potassium Chloride Carbon Dioxide Anion Gap BUN Creatinine Estimated Creat Clear Estimated GFR Est GFR ( Amer) Glucose Calcium Preliminary micro results at discharge 09/30/18 23:55 Blood Culture - Preliminary Blood NO GROWTH AFTER 48 HOURS 09/30/18 23:50 Blood Culture - Preliminary Blood NO GROWTH AFTER 48 HOURS - Additional Comments Rounded with Dr. Gotti all orders per Shen DS: Diagnosis - Discharge Diagnosis (1) Renal insufficiency Status: Acute (2) Obesity (BMI 30-39.9) Status: Acute (3) Hypothyroidism (acquired) Status: Acute (4) Diabetes mellitus Status: Acute (5) Hyperlipidemia Status: Acute (6) Patent foramen ovale Status: Acute (7) Enterocolitis Status: Acute (8) Severe sepsis Status: Acute (9) Elevated erythrocyte sedimentation rate Status: Acute (10) Elevated C-reactive protein Status: Acute (11) Elevated INR Status: Acute (12) Campylobacter enteritis Status: Acute Discharge Plan - Patient Discharge Instructions ACTIVITY: Continue current activity DIET: continue same diet Patient Instructions: DI for Ileus, DI for Diarrhea and Traveler's Diarrhea -- Adult, DI for Nausea -- Adult, DI for Vomiting -- Adult - Follow up Plan Follow up with: Demario Gotti MD [Primary Care Provider] - 1 week Disposition: Home, Self-[facility] Medications: Home Medications Medication Instructions Recorded Confirmed Type Acetaminophen [Tylenol 500mg 500 mg PO NEEDED PRN 04/20/18 09/30/18 History tablet] Ibuprofen [Ibuprofen 600mg 600 mg PO NEEDED PRN 04/20/18 09/30/18 History Tablet] Pantoprazole Sodium [Protonix 40mg 40 mg PO DAILY 04/20/18 09/30/18 History tablet] metformin 500 mg tablet 500 mg PO BID #180 tab 05/29/18 09/30/18 Rx insulin NPH isophane U-100 human 23 unit SQ BID #10 ml 08/18/18 09/30/18 Rx 100 unit/mL subcutaneous suspension citalopram 20 mg tablet 20 mg PO DAILY #90 tab 09/25/18 09/30/18 Rx levothyroxine 100 mcg tablet 100 mcg PO DAILY #90 tab 09/25/18 09/30/18 Rx topiramate 50 mg tablet 50 mg PO BID #90 tab 09/25/18 09/30/18 Rx ondansetron HCl 4 mg tablet 4 mg PO TID PRN 5 Days #14 tab 09/26/18 09/30/18 Rx Lisinopril [Lisinopril 2.5mg Tab] 2.5 mg PO DAILY 09/30/18 09/30/18 History Pregabalin [Lyrica 75mg Cap] 75 mg PO BID 09/30/18 09/30/18 History Tizanidine HCl [Zanaflex 4mg 4 mg PO Q6HP PRN 09/30/18 10/01/18 History tab] Trazodone HCl 50 mg PO HS 09/30/18 10/01/18 History Atorvastatin Calcium [Atorvastatin 20 mg PO HS 10/01/18 10/01/18 History 20mg Tab] Verapamil HCl [Verapamil ER] 180 mg PO DAILY 10/01/18 10/01/18 History Warfarin Sodium 5 mg PO SUTUTHSA 10/01/18 10/01/18 History Warfarin Sodium 7.5 mg PO MOWEFR 10/01/18 10/01/18 History buPROPion HCl [Wellbutrin 75mg 75 mg PO BID 10/01/18 10/01/18 History Tablet] Azithromycin [Zithromax 250mg 500 mg PO DIRECTED 1 Days #2 tab 10/03/18 Rx tab] Prescriptions/Medication Reconciliation: New Azithromycin [Zithromax 250mg tab] 500 mg PO DIRECTED 1 Days #2 tab Continued insulin NPH isophane U-100 human 100 unit/mL subcutaneous suspension 23 unit SQ BID #10 ml topiramate 50 mg tablet 50 mg PO BID #90 tab citalopram 20 mg tablet 20 mg PO DAILY #90 tab metformin 500 mg tablet 500 mg PO BID #180 tab levothyroxine 100 mcg tablet 100 mcg PO DAILY #90 tab Pantoprazole Sodium [Protonix 40mg tablet] 40 mg PO DAILY Lisinopril [Lisinopril 2.5mg Tab] 2.5 mg PO DAILY Pregabalin [Lyrica 75mg Cap] 75 mg PO BID Tizanidine HCl [Zanaflex 4mg tab] 4 mg PO Q6HP PRN PRN Reason: SPASMS Trazodone HCl 50 mg PO HS buPROPion HCl [Wellbutrin 75mg Tablet] 75 mg PO BID Atorvastatin Calcium [Atorvastatin 20mg Tab] 20 mg PO HS Acetaminophen [Tylenol 500mg tablet] 500 mg PO NEEDED PRN PRN Reason: pain Discontinued ondansetron HCl 4 mg tablet 4 mg PO TID PRN 5 Days #14 tab PRN Reason: nausea and vomiting Ibuprofen [Ibuprofen 600mg Tablet] 600 mg PO NEEDED PRN PRN Reason: pain Warfarin Sodium 5 mg PO SUTUTHSA Verapamil HCl [Verapamil ER] 180 mg PO DAILY Warfarin Sodium 7.5 mg PO MOWEFR
== END 2018-10-03 14:17 | disposition home or self-care (01) ==
LOC: 2ND 09:26 → ER 09:26 → 2ND 13:08
PROVIDERS: ADMIT Emergency Medicine; ATTEND Emergency Medicine
DX: Z79.84 Long term (current) use of oral hypoglycemic drugs; Z68.35 Body mass index [BMI] 35.0-35.9, adult; A04.5 Campylobacter enteritis; Z86.73 Personal history of transient ischemic attack (TIA), and cerebral infarction without residual deficits; Z88.7 Allergy status to serum and vaccine; E11.69 Type 2 diabetes mellitus with other specified complication; Z88.8 Allergy status to other drugs, medicaments and biological substances; Z86.14 Personal history of Methicillin resistant Staphylococcus aureus infection; E03.9 Hypothyroidism, unspecified; E86.0 Dehydration; Z79.01 Long term (current) use of anticoagulants; N28.9 Disorder of kidney and ureter, unspecified; R70.0 Elevated erythrocyte sedimentation rate; Z72.0 Tobacco use; Z79.899 Other long term (current) drug therapy; R79.82 Elevated C-reactive protein (CRP); Q21.1 Atrial septal defect; J44.9 Chronic obstructive pulmonary disease, unspecified; E66.9 Obesity, unspecified; R79.1 Abnormal coagulation profile; E78.5 Hyperlipidemia, unspecified; F41.9 Anxiety disorder, unspecified; Z79.4 Long term (current) use of insulin
CPT/HCPCS: 36415; 74019; 74020; 74021; 74022; 74176; 74177; 80048; 80053; 80061; 81001; 82009; 82962; 83605; 83690; 83735; 85025; 85610; 85651; 86140; 87040; 87507; 96365; 96375; 99284; G0378; J1335; Q9967

== ENCOUNTER 2018-10-05 13:56 | Outpatient (CLI) | payer MEDICARE, SELFPAY ==
[2018-10-05 15:43] LABS: PHA INR Fingerstick 1.9 (0.9-1.1)
== END 2018-10-05 15:45 | disposition home or self-care (01) ==
LOC: ACC 13:58
PROVIDERS: PCP Emergency Medicine; Visit Provider Emergency Medicine
DX: Z51.81 Encounter for therapeutic drug level monitoring (principal); Z79.01 Long term (current) use of anticoagulants
CPT/HCPCS: 85610; 99211; G0463

== ENCOUNTER → 2018-10-10 17:26 | Outpatient (CLI) | payer MEDICARE, SELFPAY ==
[2018-10-10 18:21] LABS: Basophils % 0.4 % (0.1-2.0); Eosinophils # 0.1 K/mm3 (0.0-0.4); Eosinophils % 1.8 % (0.1-12.0); Hematocrit 35.3 % (37.0-47.0); Hemoglobin 10.8 g/dL (12.2-16.2); Lymphocytes # 2.1 K/mm3 (0.7-4.5); Lymphocytes % 28.1 % (10-50); Mean Corpuscular HGB Conc 30.4 g/dL (31.8-35.4); Mean Corpuscular Hemoglobin 28.7 pg (27.0-31.2); Mean Corpuscular Volume 94.2 fl (81-99); Mean Platelet Volume 12.5 fl (7.4-10.4); Monocytes # 0.2 K/mm3 (0.1-1.0); Monocytes % 3.3 % (1.7-9.3); Neutrophils # 4.9 K/mm3 (1.8-7.8); Neutrophils % 66.5 % (37.0-80.0); Platelet Count 216 K/mm3 (142-424); Red Blood Count 3.75 M/mm3 (4.20-5.40); Red Cell Distribution Width 16.2 % (11.5-17.5); White Blood Count 7.3 K/mm3 (4.8-10.8)
[2018-10-10 19:20] LABS: Alanine Aminotransferase 23 U/L (12-78); Albumin Level 3.2 gm/dL (3.4-5.0); Alkaline Phosphatase 63 U/L (46-116); Anion Gap 15.1 mEq/L (5-15); Aspartate Amino Transferase 12 U/L (15-37); Bilirubin,Total 0.2 mg/dL (0.2-1.0); Blood Urea Nitrogen 12 mg/dL (7-18); Calcium 8.3 mg/dL (8.5-10.1); Carbon Dioxide 23 mmol/L (21.0-32.0); Chloride 110 mmol/L (98-107); Creatinine,Serum 1.09 mg/dL (0.55-1.02); Estimated Glomerular Filt Rate 52 ml/min (>60); GFR (African American) 62 ML/MIN (>60); Globulin 3.1 gm/dl (1.3-3.2); Glucose 143 mg/dL (74-106); Potassium 4.1 mmoL/L (3.5-5.1); Sodium 144 mmol/L (136-145); Total Protein,Serum 6.3 gm/dL (6.4-8.2)
[2018-10-10 19:27] LABS: Erythrocyte Sedimentation Rate 59 mm/hr (0-30)
[2018-10-12 19:11] LABS: Vitamin D 25 Hydroxy 6.6 ng/mL (30.0-100.0)
== END ==
PROVIDERS: Visit Provider Emergency Medicine
DX: E11.9 Type 2 diabetes mellitus without complications (principal); Z79.4 Long term (current) use of insulin; Z79.84 Long term (current) use of oral hypoglycemic drugs
CPT/HCPCS: 80053; 82652; 85025; 85651

== ENCOUNTER 2018-10-18 13:36 | Outpatient (CLI) | payer MEDICARE, SELFPAY ==
[2018-10-18 14:46] LABS: PHA INR Fingerstick 2.2 (0.9-1.1)
== END 2018-10-18 14:55 | disposition home or self-care (01) ==
LOC: ACC 13:37
PROVIDERS: PCP Emergency Medicine; Visit Provider Emergency Medicine
DX: Z51.81 Encounter for therapeutic drug level monitoring (principal); Z79.01 Long term (current) use of anticoagulants
CPT/HCPCS: 85610; 99211; G0463

== ENCOUNTER → 2018-11-02 15:15 | Outpatient (CLI) | payer MEDICARE, SELFPAY ==
[2018-11-02 16:32] LABS: INR 1.46 (0.9-1.1); Prothrombin Time 14.9 seconds (9.4-11.8)
[2018-11-02 16:58] LABS: Reticulocyte % (Auto) 1.3 % (0.9-3.2)
[2018-11-02 17:58] LABS: Ferritin 33 ng/mL (8-388)
[2018-11-04 08:40] LABS: Iron 42 ug/dL (27-159); UIBC 226 ug/dL (131-425)
[2018-11-04 18:12] LABS: Iron Saturation 16 % (15-55)
== END ==
PROVIDERS: Visit Provider Emergency Medicine
DX: D64.9 Anemia, unspecified (principal); Z51.81 Encounter for therapeutic drug level monitoring; Z79.01 Long term (current) use of anticoagulants
CPT/HCPCS: 36415; 82728; 83540; 83550; 85044; 85610

== ENCOUNTER 2018-11-23 15:40 | Outpatient (CLI) | payer MEDICARE, SELFPAY ==
[2018-11-23 16:01] LABS: PHA INR Fingerstick 2.2 (0.9-1.1)
== END 2018-11-23 16:06 | disposition home or self-care (01) ==
LOC: ACC 15:41
PROVIDERS: PCP Emergency Medicine; Visit Provider Emergency Medicine
DX: Z51.81 Encounter for therapeutic drug level monitoring (principal); Z79.01 Long term (current) use of anticoagulants; Z86.718 Personal history of other venous thrombosis and embolism
CPT/HCPCS: 85610; 99211; G0463

== ENCOUNTER 2018-12-25 14:07 | Outpatient (CLI) | payer MEDICARE, SELFPAY ==
[2018-12-25 14:47] LABS: PHA INR Fingerstick 2.6 (0.9-1.1)
== END 2018-12-25 15:04 | disposition home or self-care (01) ==
LOC: ACC 14:08
PROVIDERS: PCP Emergency Medicine; Visit Provider Emergency Medicine
DX: Z51.81 Encounter for therapeutic drug level monitoring (principal); Z79.01 Long term (current) use of anticoagulants; Z86.718 Personal history of other venous thrombosis and embolism
CPT/HCPCS: 85610; 99211; G0463

== ENCOUNTER 2018-12-27 14:24 | Outpatient (CLI) | payer MEDICARE, SELFPAY ==
[2018-12-27 15:24] LABS: PHA INR Fingerstick 1.8 (0.9-1.1)
== END 2018-12-27 15:29 | disposition home or self-care (01) ==
LOC: ACC 14:25
PROVIDERS: PCP Emergency Medicine; Visit Provider Emergency Medicine
DX: Z51.81 Encounter for therapeutic drug level monitoring (principal); Z79.01 Long term (current) use of anticoagulants; Z86.718 Personal history of other venous thrombosis and embolism
CPT/HCPCS: 85610; 99211; G0463

== ENCOUNTER 2019-01-03 14:27 | Outpatient (CLI) | payer MEDICARE, SELFPAY ==
[2019-01-03 14:49] LABS: PHA INR Fingerstick 2.8 (0.9-1.1)
== END 2019-01-03 14:50 | disposition home or self-care (01) ==
LOC: ACC 14:28
PROVIDERS: PCP Emergency Medicine; Visit Provider Emergency Medicine
DX: Z51.81 Encounter for therapeutic drug level monitoring (principal); Z79.01 Long term (current) use of anticoagulants; Z86.718 Personal history of other venous thrombosis and embolism
CPT/HCPCS: 85610; 99211; G0463

== ENCOUNTER 2019-01-10 13:12 | Outpatient (CLI) | payer MEDICARE, SELFPAY ==
[2019-01-10 16:13] LABS: PHA INR Fingerstick 3.3 (0.9-1.1)
== END 2019-01-10 16:14 | disposition home or self-care (01) ==
LOC: ACC 13:13
PROVIDERS: PCP Emergency Medicine; Visit Provider Emergency Medicine
DX: Z51.81 Encounter for therapeutic drug level monitoring (principal); Z79.01 Long term (current) use of anticoagulants; Z86.718 Personal history of other venous thrombosis and embolism
CPT/HCPCS: 85610; 99211; G0463

== ENCOUNTER 2019-01-24 13:45 | Outpatient (CLI) | payer MEDICARE, SELFPAY ==
[2019-01-24 15:05] LABS: PHA INR Fingerstick 1.2 (0.9-1.1)
== END 2019-01-24 15:08 | disposition home or self-care (01) ==
LOC: ACC 13:46
PROVIDERS: PCP Emergency Medicine; Visit Provider Emergency Medicine
DX: Z79.01 Long term (current) use of anticoagulants (principal); Z51.81 Encounter for therapeutic drug level monitoring; Z86.718 Personal history of other venous thrombosis and embolism
CPT/HCPCS: 85610; 99211; G0463

== ENCOUNTER 2019-02-02 09:44 | Outpatient (CLI) | payer MEDICARE, SELFPAY ==
[2019-02-02 12:11] LABS: PHA INR Fingerstick 2.1 (0.9-1.1)
== END 2019-02-02 14:17 | disposition home or self-care (01) ==
LOC: ACC 09:46
PROVIDERS: PCP Emergency Medicine; Visit Provider Emergency Medicine
DX: Z51.81 Encounter for therapeutic drug level monitoring (principal); Z79.01 Long term (current) use of anticoagulants; Z86.718 Personal history of other venous thrombosis and embolism
CPT/HCPCS: 85610; 99211; G0463

== ENCOUNTER 2019-02-14 13:57 | Outpatient (CLI) | payer MEDICARE, SELFPAY ==
[2019-02-14 14:46] LABS: PHA INR Fingerstick 2.7 (0.9-1.1)
== END 2019-02-14 14:48 | disposition home or self-care (01) ==
LOC: ACC 13:59
PROVIDERS: PCP Emergency Medicine; Visit Provider Emergency Medicine
DX: Z51.81 Encounter for therapeutic drug level monitoring (principal); Z79.01 Long term (current) use of anticoagulants
CPT/HCPCS: 85610; 99211; G0463

== ENCOUNTER 2019-08-03 14:04 | Outpatient (CLI) | payer MEDICARE, SELFPAY ==
[2019-08-03 15:38] LABS: INR 10.06 (0.9-1.1); Prothrombin Time 93.7 seconds (9.4-11.8)
== END 2019-08-03 15:30 | disposition home or self-care (01) ==
PROVIDERS: PCP Emergency Medicine; Visit Provider Emergency Medicine
DX: Z51.81 Encounter for therapeutic drug level monitoring (principal); Z79.01 Long term (current) use of anticoagulants
CPT/HCPCS: 36415; 85610; 99211; G0463

== ENCOUNTER → 2019-08-08 11:59 | Outpatient (CLI) | payer MEDICARE, SELFPAY ==
[2019-08-08 12:26] LABS: INR 3.05 (0.9-1.1); Prothrombin Time 30.1 seconds (9.4-11.8)
--- NOTE | 2019-08-10 12:59 | HMH.PHAINT ---
ACC-DISCUSSED INR WITH PATIENT. PATIENT INDICATED SHE HAS NOT BEEN EATING MUCH AT ALL LATELY. SOMETIMES MISSING WHOLE DAY BETWEEN MEALS. RECOMMENDED PATIENT REDUCE WARFARIN DOSE BY 10 MG WEEKLY TO WARFARIN 2.5 MG ON MON/FRI; 5 MG ON TUE/TUE/TUE/TUE/SAT. PATIENT FOLLOWING UP IN ACC NEXT WEEK.
== END ==
PROVIDERS: Visit Provider Emergency Medicine
DX: Z51.81 Encounter for therapeutic drug level monitoring (principal); Z79.01 Long term (current) use of anticoagulants
CPT/HCPCS: 36415; 85610

== ENCOUNTER 2019-08-17 14:00 | Outpatient (CLI) | payer MEDICARE, SELFPAY ==
[2019-08-17 15:53] LABS: PHA INR Fingerstick 3.5 (0.9-1.1)
== END 2019-08-17 15:55 | disposition home or self-care (01) ==
LOC: ACC 14:03
PROVIDERS: PCP Emergency Medicine; Visit Provider Emergency Medicine
DX: Z79.01 Long term (current) use of anticoagulants (principal)
CPT/HCPCS: 85610; 93225; 93226; 99211; G0463

== ENCOUNTER → 2019-08-17 16:48 | Outpatient (CLI) | payer MEDICARE, SELFPAY ==
[2019-08-17 17:27] LABS: Basophils # 0.1 K/mm3 (0-0.2); Basophils % 0.6 % (0.1-2.0); Eosinophils # 0.1 K/mm3 (0.0-0.4); Eosinophils % 1.2 % (0.1-12.0); Hematocrit 37.2 % (37.0-47.0); Hemoglobin 11.6 g/dL (12.2-16.2); Lymphocytes # 2.8 K/mm3 (0.7-4.5); Lymphocytes % 31.3 % (10-50); Mean Corpuscular HGB Conc 31.2 g/dL (31.8-35.4); Mean Corpuscular Hemoglobin 30.6 pg (27.0-31.2); Mean Corpuscular Volume 98.3 fl (81-99); Mean Platelet Volume 13.9 fl (7.4-10.4); Monocytes # 0.4 K/mm3 (0.1-1.0); Monocytes % 4.1 % (1.7-9.3); Neutrophils # 5.5 K/mm3 (1.8-7.8); Neutrophils % 62.9 % (37.0-80.0); Platelet Count 237 K/mm3 (142-424); Red Blood Count 3.78 M/mm3 (4.20-5.40); Red Cell Distribution Width 17.8 % (11.5-17.5); White Blood Count 8.8 K/mm3 (4.8-10.8)
[2019-08-17 17:30] LABS: Chloride 109 mmol/L (98-107); Sodium 140 mmol/L (136-145)
[2019-08-17 17:33] LABS: Alanine Aminotransferase 24 U/L (12-78); Albumin Level 3.3 g/dl (3.5-5.0); Albumin/Globulin Ratio 1.1 (1.1-1.8); Alkaline Phosphatase 78 U/L (38-126); Aspartate Amino Transferase 26 U/L (14-36); Bilirubin,Total 0.3 mg/dl (0.2-1.3); Blood Urea Nitrogen 11 mg/dl (7-17); Calcium 8.8 mg/dl (8.4-10.2); Carbon Dioxide 22 mmol/L (22.0-30.0); Estimated Glomerular Filt Rate 42 ml/min (>60); GFR (African American) 51 ML/MIN (>60); Globulin 2.9 g/dL (1.3-3.2); Glucose 138 mg/dl (74-100); Total Protein,Serum 6.2 g/dl (6.3-8.2)
[2019-08-17 17:50] LABS: T4 (Thyroxine) 12.5 ug/dl (5.53-11.0)
[2019-08-17 17:58] LABS: Erythrocyte Sedimentation Rate 59 mm/hr (0-30)
[2019-08-17 18:03] LABS: Thyroid Stimulating Hormone 0.53 uIU/mL (0.465-4.68)
== END ==
PROVIDERS: Visit Provider Emergency Medicine
DX: R50.9 Fever, unspecified (principal); R55 Syncope and collapse; Z51.81 Encounter for therapeutic drug level monitoring; Z79.01 Long term (current) use of anticoagulants
CPT/HCPCS: 80053; 84436; 84443; 85025; 85610; 85651; 93225; 93226; 99211; G0463

== ENCOUNTER 2019-08-24 14:35 | Outpatient (CLI) | payer MEDICARE, SELFPAY ==
[2019-08-24 16:40] LABS: PHA INR Fingerstick 3.3 (0.9-1.1)
== END 2019-08-24 16:41 | disposition home or self-care (01) ==
LOC: ACC 14:36
PROVIDERS: PCP Emergency Medicine; Visit Provider Emergency Medicine
DX: Z51.81 Encounter for therapeutic drug level monitoring (principal); Z79.01 Long term (current) use of anticoagulants
CPT/HCPCS: 85610; 99211; G0463

== ENCOUNTER → 2019-09-03 13:50 | Outpatient (CLI) | payer MEDICARE, SELFPAY ==
[2019-09-03 14:53] LABS: Basophils # 0.1 K/mm3 (0-0.2); Basophils % 0.8 % (0.1-2.0); Eosinophils # 0.2 K/mm3 (0.0-0.4); Eosinophils % 1.7 % (0.1-12.0); Hematocrit 32.8 % (37.0-47.0); Hemoglobin 10.1 g/dL (12.2-16.2); Lymphocytes % 36.6 % (10-50); Mean Corpuscular HGB Conc 30.8 g/dL (31.8-35.4); Mean Corpuscular Hemoglobin 30.2 pg (27.0-31.2); Mean Corpuscular Volume 98.1 fl (81-99); Monocytes # 0.5 K/mm3 (0.1-1.0); Monocytes % 4.3 % (1.7-9.3); Neutrophils # 6.2 K/mm3 (1.8-7.8); Neutrophils % 56.5 % (37.0-80.0); Platelet Count 237 K/mm3 (142-424); Red Blood Count 3.35 M/mm3 (4.20-5.40); Red Cell Distribution Width 18.4 % (11.5-17.5)
[2019-09-03 15:19] LABS: Chloride 105 mmol/L (98-107); Sodium 134 mmol/L (136-145)
[2019-09-03 15:20] LABS: Potassium 4.3 mmoL/L (3.5-5.1)
[2019-09-03 15:22] LABS: Alanine Aminotransferase 19 U/L (12-78); Albumin Level 3.4 g/dl (3.5-5.0); Albumin/Globulin Ratio 1.2 (1.1-1.8); Alkaline Phosphatase 69 U/L (38-126); Anion Gap 13.3 mEq/L (5-15); Aspartate Amino Transferase 35 U/L (14-36); Blood Urea Nitrogen 16 mg/dl (7-17); Calcium 8.4 mg/dl (8.4-10.2); Carbon Dioxide 20 mmol/L (22.0-30.0); Chol/HDL Ratio 2.8 (1-3.5); Cholesterol 111 mg/dl (140-200); Estimated Glomerular Filt Rate 51 ml/min (>60); GFR (African American) 62 ML/MIN (>60); Globulin 2.8 g/dL (1.3-3.2); Glucose 100 mg/dl (74-100); HDL Cholesterol 40 mg/dl (40-60); Total Protein,Serum 6.2 g/dl (6.3-8.2); Triglycerides 278 mg/dl (30-150); VLDL Cholesterol 56 mg/dL (0-40)
[2019-09-03 15:33] LABS: Direct LDL Cholesterol 30.13 mg/dL (100-129)
[2019-09-03 15:40] LABS: T4 (Thyroxine) 10.2 ug/dl (5.53-11.0)
[2019-09-03 15:43] LABS: Bilirubin,Total < 0.1 mg/dl (0.2-1.3)
[2019-09-03 16:51] LABS: Thyroid Stimulating Hormone 1.17 uIU/mL (0.465-4.68)
[2019-09-04 16:48] LABS: Ferritin 76.3 ng/ml (11.1-264)
[2019-09-05 11:27] LABS: Vitamin D 25 Hydroxy 29.4 ng/mL (30.0-100.0)
[2019-09-06 04:07] LABS: Iron 35 ug/dL (27-159); UIBC 145 ug/dL (131-425)
[2019-09-06 11:36] LABS: Iron Saturation 19 % (15-55)
== END ==
PROVIDERS: Physician Assistant; Visit Provider Emergency Medicine
DX: E11.9 Type 2 diabetes mellitus without complications (principal); E03.9 Hypothyroidism, unspecified; D64.9 Anemia, unspecified; E16.2 Hypoglycemia, unspecified; E55.9 Vitamin D deficiency, unspecified; Z79.84 Long term (current) use of oral hypoglycemic drugs
CPT/HCPCS: 80053; 80061; 82652; 82728; 83036; 83540; 83550; 84436; 84443; 85025

== ENCOUNTER 2019-09-24 21:11 | Observation (INO) | payer MEDICARE, SELFPAY ==
[2019-09-24 21:15] VITALS: BP 99/69; PULSE 86; RESP 16; TEMP 36.9; O2SAT 98; BMI 25.2
--- NOTE | 2019-09-24 21:25 | XR_ITS ---
PROCEDURE: XR CHEST 2V CLINICAL HISTORY: weakness Current smoker the COMPARISON: [facility] CT CHEST W/O CONTRAST from 09/22/2014 CXR2 CHEST-AP VIEW ONLY from 03/27/2016 CXR1 CHEST-PORTABLE from 03/30/2016 CXR CHEST(2 VIEWS-NOT PORTABLE) from 03/31/2017 FINDINGS: The cardiomediastinal silhouette and pulmonary vascularity are within normal limits. The lungs are clear without infiltrates, suspicious nodules, or pleural effusions. There is mild wedging of the T4 vertebral body with loss of height anteriorly of approximately 30 percent IMPRESSION: 1. No acute cardiothoracic findings. 2. Mild wedging of T4 vertebral body age indeterminate which may be better evaluated with CT or MRI if clinically warranted Dictated by: Brown Mendoza MD 09/25/2019 07:17 Electronically signed by Brown Mendoza MD in [place] 09/25/2019 07:17
--- NOTE | 2019-09-24 21:25 | CT_ITS ---
PROCEDURE: CT ABDOMEN PELVIS W CON CLINICAL INDICATION: belly pain Abdominal pain with nausea vomiting and diarrhea, weight loss COMPARISON: ABDPELW CT abdomen pelvis w con from 10/02/2018 TECHNIQUE: IV Contrast: 75ML OPTIRAY 350 Oral Contrast 20ml Gastroview Axial images obtained with sagittal and coronal reformats. All CT scans at the facility use one or more dose reduction, viz: automated exposure control, ma/kV adjustment per patient size (including targeted exams where dose is matched to indication, i.e. head), or iterative reconstruction technique. FINDINGS: LOWER THORAX: No acute finding ABDOMEN & PELVIS: The gallbladder is distended. The liver, spleen, adrenal glands, and pancreas have an unremarkable appearance. There is a small hiatal hernia. Nonobstructing stone is present in the lower pole of the left kidney at 5 mm. No hydronephrosis. No ureteral calculi. No evidence of appendicitis. There is mild diffuse colonic wall thickening. There are colonic diverticula. No evidence of diverticulitis. No pelvic mass or abnormal fluid collection. No acute bony findings. Mild degenerative changes of the hips and spine. IMPRESSION: There is mild diffuse colonic wall thickening. This is nonspecific and could be due to nondistention or mild colitis. Distended gallbladder Dictated by: Brown Mendoza MD 09/25/2019 06:41 Electronically signed by Brown Mendoza MD in [place] 09/25/2019 06:41
[2019-09-24 21:30] LABS: Basophils # 0.1 K/mm3 (0-0.2); Basophils % 0.4 % (0.1-2.0); Chloride 113 mmol/L (98-107); Eosinophils # 0.3 K/mm3 (0.0-0.4); Eosinophils % 2.3 % (0.1-12.0); Hematocrit 38.8 % (37.0-47.0); Hemoglobin 12.6 g/dL (12.2-16.2); Lymphocytes # 4.9 K/mm3 (0.7-4.5); Lymphocytes % 38.1 % (10-50); Mean Corpuscular HGB Conc 32.6 g/dL (31.8-35.4); Mean Corpuscular Hemoglobin 32.7 pg (27.0-31.2); Mean Corpuscular Volume 100.4 fl (81-99); Mean Platelet Volume 10.9 fl (7.4-10.4); Monocytes # 0.4 K/mm3 (0.1-1.0); Monocytes % 2.9 % (1.7-9.3); Neutrophils # 7.3 K/mm3 (1.8-7.8); Neutrophils % 56.3 % (37.0-80.0); Platelet Count 262 K/mm3 (142-424); Red Blood Count 3.87 M/mm3 (4.20-5.40); Red Cell Distribution Width 16.4 % (11.5-17.5); White Blood Count 12.9 K/mm3 (4.8-10.8)
[2019-09-24 21:31] LABS: Potassium 3.9 mmoL/L (3.5-5.1); Sodium 139 mmol/L (136-145)
[2019-09-24 21:33] LABS: Alanine Aminotransferase 26 U/L (12-78); Alkaline Phosphatase 65 U/L (38-126); Aspartate Amino Transferase 30 U/L (14-36); Bilirubin,Total 0.5 mg/dl (0.2-1.3); Blood Urea Nitrogen 10 mg/dl (7-17); Creatinine Clearance Estimated 55 mL/min (50-200); Estimated Glomerular Filt Rate 42 ml/min (>60); GFR (African American) 51 ML/MIN (>60)
[2019-09-24 21:34] LABS: Albumin Level 3.5 g/dl (3.5-5.0); Albumin/Globulin Ratio 1.2 (1.1-1.8); Amylase 45 U/L (30-110); Anion Gap 14.9 mEq/L (5-15); Calcium 8.3 mg/dl (8.4-10.2); Carbon Dioxide 15 mmol/L (22.0-30.0); Glucose 78 mg/dl (74-100); Total Protein,Serum 6.5 g/dl (6.3-8.2)
[2019-09-24 21:39] LABS: Lipase < 10 U/L (23-300)
--- NOTE | 2019-09-24 21:40 | HMH.EDNVD ---
ED Disposition Clinical Impression: Colitis, Weight loss, Elevated troponin, Renal insufficiency Disposition: Admitted as Observation Condition on Discharge: Fair - Critical Care Critical Care Time: No Attestation: On 09/24/19, the high probability of a clinically significant, sudden or life threatening deterioration of the following system(s) required my full and direct attention, intervention and personal management. The time I documented below is in addition to time spent performing reported procedures but includes the following listed in this critical care notation. Medical Decision Making - Medical Records Medical records reviewed: Yes: I reviewed the patient's medical records. - Gabriel Inquiry Pt receiving controlled substance: No Vital Signs: 09/24/19 21:15 Temperature 98.4 F Temperature Source Oral Pulse Rate [Right Brachial] 86 Respiratory Rate 16 Blood Pressure [Right Arm] 99/69 L Blood Pressure Mean [Right Arm] 79 Blood Pressure Source [Right Arm] Automatic Cuff Blood Pressure Position [Right Arm] Sitting 02 Sat by Pulse Oximetry 98 Oxygen Delivery Method Room Air - Lab Data Lab results reviewed: Yes: I reviewed the patient's lab results. Lab Results 09/24/19 21:15: Amylase 45, Lipase < 10 L 09/24/19 21:15: WBC 12.9 H, RBC 3.87 L, Hgb 12.6, Hct 38.8, MCV 100.4 H, MCH 32.7 H, MCHC 32.6, RDW 16.4, Plt Count 262, MPV 10.9 H, Neut % (Auto) 56.3, Lymph % (Auto) 38.1, [place] % (Auto) 2.9, Eos % (Auto) 2.3, Baso % (Auto) 0.4, Neut # (Auto) 7.3, Lymph # (Auto) 4.9 H, [place] # (Auto) 0.4, Eos # (Auto) 0.3, Baso # (Auto) 0.1 09/24/19 21:15: Sodium 139, Potassium 3.9, Chloride 113 H, Carbon Dioxide 15 L, Anion Gap 14.9, BUN 10, Creatinine 1.30 H, Estimated Creat Clear 55, Estimated GFR 42 L, Est GFR ( Amer) 51 L, Glucose 78, Calcium 8.3 L, Total Bilirubin 0.5, AST 30, ALT 26, Alkaline Phosphatase 65, Total Protein 6.5, Albumin 3.5, Globulin 3.0, Albumin/Globulin Ratio 1.2 09/24/19 21:15: ESR 23 09/24/19 21:15: Troponin I 0.07 H, C-Reactive Protein 0.4 09/24/19 21:15: SARS-CoV-2 IgG Ab (Rapid) Negative, SARS-CoV-2 IgM Ab (Rapid) Negative 09/24/19 22:20: Urine Color Yellow, Urine Appearance Clear, Urine pH 6.0, Ur Specific [place] 1.025, Urine Protein Negative, Urine Glucose (UA) Negative, Urine Ketones Negative, Urine Blood Negative, Urine Nitrate Negative, Urine Bilirubin Negative, Urine Urobilinogen 0.2, Ur Leukocyte Esterase Negative, Urine WBC Occasional, Ur Squamous Epith Cells Occasional, Urine Bacteria Trace, Hyaline Casts Occasional Result diagrams: 09/24/19 21:15 09/24/19 21:15 Orders (Tests/Meds): ED MEDICATIONS Generic Name Dose Route Start Last Admin Trade Name Freq PRN Reason Stop Dose Admin Sodium Chloride 1,000 mls @ 999 mls/hr 09/24/19 21:30 09/24/19 21:39 Sod Chlor 0.9% 1000ml Bag IV 09/24/19 22:30 999 mls/hr .Q1H1M IRMA Administration Discontinued Medications Generic Name Dose Route Start Last Admin Trade Name Freq PRN Reason Stop Dose Admin Diatrizoate Meglum/Diatrizoate Sod 30 ml 09/24/19 21:29 09/24/19 21:50 Gastrografin 66%-10% 30ml PO 09/24/19 21:30 30 ml ONCE ONE Administration Ioversol 75 ml 09/24/19 23:43 09/24/19 23:44 Rad-Optiray 350 100ml Vial IV 09/24/19 23:44 75 ml ONCE ONE Administration Protocol Ondansetron HCl 4 mg 09/24/19 21:23 09/24/19 21:39 Zofran 4mg/2ml Vial IV 09/24/19 21:24 4 mg ONCE ONE Administration Sodium Chloride 10 ml 09/24/19 23:43 09/24/19 23:44 Rad-Saline Flush 10ml Syringe IV 09/24/19 23:44 10 ml ONCE ONE Administration ORDERS Category Date Time Status CT abdomen pelvis w con Stat Cat Scan 09/24/19 21:25 Taken XR chest 2V Stat Exams 09/24/19 21:25 Taken Diarrhea 23 Panel, PCR Stat Lab 09/24/19 21:39 Ordered Troponin I Q3H Lab 09/25/19 00:23 Received Troponin I Q3H Lab 09/25/19 03:30 Ordered - Radiology Data #1 Image(s): Chest Image Reviewed: Yes I re
--- NOTE | 2019-09-24 21:57 | ECG_ITS ---
APPROVED REPORT Exam: Resting ECG HR:80 bpm ECG Measurements Heart Rate 80 AXES OR 182 P 73 QRSd 78 QRS 4 QT 398 T 42 QTc 459 <Conclusion> Normal sinus rhythm Normal ECG Electronically signed by : Gerald Andrew, 09/25/2019 13:13:09
[2019-09-24 22:00] VITALS: BP 105/63; PULSE 84; RESP 16; O2SAT 97
[2019-09-24 22:06] LABS: Troponin I 0.07 ng/ml (0.00-0.034)
[2019-09-24 22:30] VITALS: BP 122/65; PULSE 84; RESP 14; O2SAT 98
[2019-09-24 22:36] LABS: Erythrocyte Sedimentation Rate 23 mm/hr (0-30)
[2019-09-24 22:56] LABS: Appearance,Urine CLEAR (Clear); Bilirubin,Urine Negative (Negative); Blood, Urine Negative (Negative); Color,Urine YELLOW (Yellow); Glucose,Urine (UA) Negative (Negative); Ketones,Urine Negative (Negative); Leukocyte Esterase,Urine Negative (Negative); Microscopic, Urine URINE MICROSCOPIC (MICROSCOPIC); Nitrate,Urine Negative (Negative); Protein,Urine Negative (Negative); Specific Gravity, Urine 1.025 (1.005-1.030); Urobilinogen,Urine 0.2 EU/dl (0.2)
[2019-09-24 22:57] LABS: Coronavirus 19 IgG Antibody Negative (Negative); Coronavirus 19 IgM Antibody Negative (Negative)
[2019-09-24 23:05] LABS: Bacteria,Urine Trace /lpf; Hyaline Casts,Urine Occasional #/lpf (0); Squamous Epithelial Cell,Urine Occasional #/hpf (0-5); WBC,Urine Occasional #/hpf (0-3)
[2019-09-24 23:16] LABS: C-Reactive Protein 0.4 mg/L (0-4)
[2019-09-25] VITALS (11 sets, daily range): BP systolic 108–144; BP diastolic 69–87; PULSE 75–105; RESP 15–20; TEMP 36.2–37.2; O2SAT 95–963; BMI 24.8
[2019-09-25 01:02] LABS: Troponin I 0.05 ng/ml (0.00-0.034)
[2019-09-25 01:11] LABS: Lactic Acid 1.7 mmol/L (0.7-2.1)
--- NOTE | 2019-09-25 01:55 | PC.NURSE ---
patient to floor via wheelchair.
[2019-09-25 03:40] LABS: Adenovirus F 40/41, stool Not Detected (NotDetected); Astrovirus Not Detected (NotDetected); Campylobacter Not Detected (NotDetected); Clostridium Difficile A/B, PCR Not Detected (NotDetected); Cryptosporidium Not Detected (NotDetected); Cyclospora Cayetanesis Not Detected (NotDetected); Entamoeba histolytica Not Detected (NotDetected); Enteroaggregative E coli Not Detected (NotDetected); Enteropathogenic E coli Not Detected (NotDetected); Enterotoxigenic E coli Not Detected (NotDetected); Giardia lamblia Not Detected (NotDetected); Norovirus Not Detected (NotDetected); Plesimonas Shigalloides, PCR Not Detected (NotDetected); Rotavirus A Not Detected (NotDetected); Salmonella, PCR Not Detected (NotDetected); Sapovirus Not Detected (NotDetected); Shiga-like toxin E coli Not Detected (NotDetected); Shigella Enterovasive E coli Not Detected (NotDetected); Vibrio Cholerae Not Detected (NotDetected); Vibrio, PCR Not Detected (NotDetected); Yersinia Entercolitica, PCR Not Detected (NotDetected)
--- NOTE | 2019-09-25 04:20 | PC.NURSE ---
PT. HAS HAD TWO EPISODES OF DIARRHEA; STOOL SAMPLE COLLECTED. PT. HAS NOT C/O PAIN, N/V, DIZZINESS OR SOA THUS FAR.
[2019-09-25 04:21] LABS: Troponin I 0.05 ng/ml (0.00-0.034)
[2019-09-25 07:25] LABS: Eosinophils # 0.1 K/mm3 (0.0-0.4); Monocytes # 0.3 K/mm3 (0.1-1.0); Red Cell Distribution Width 16.5 % (11.5-17.5)
--- NOTE | 2019-09-25 07:29 | HMH.GSCON ---
*Admission Date: 09/25/19 *Reason for consult:: Abnormal CT scan *History of present illness: Patient is a 59-year-old female whom I had seen in the past. She is on chronic warfarin. I had performed colonoscopy on her for screening purposes for family history of colon cancer a little bit over a year ago. She had somewhat of a suboptimal colonic preparation but colonoscopy was unremarkable other than hyperplastic polyps. Patient states that over the past 6 months she has had greater than an 80 pound weight loss. For the last 2 weeks she has had nausea and vomiting with some diarrhea and cramping abdominal pain. She was evaluated in the emergency department. She had a CT scan performed which revealed findings of nondistention versus possible colitis. She was admitted for inpatient management and surgical consultation. This morning patient states that she feels somewhat better. She does have somewhat of an appetite. Review of Systems - Review of Systems Review of systems:: pertinent systems reviewed and negative unless documented below - *Neurologic Reports weakness, Denies frequent falls, Denies seizure-like activity [facility] History I have reviewed the patient's past medical history: Yes Medical History: Reports:: Anxiety, Chronic Obstructive Pulmonary Disease (COPD), Cerebrovascular Accident, Depression, Diabetes Mellitus Type 2, Hyperlipidemia, Lung Disease, Migraine Denies:: Diabetes Mellitus Type 1, Internal Pacemaker, Seizures *Have you ever received a pneumonia vaccine?: Yes *Have you received a flu vaccine this season?: No Other Medical History: Reports: Hypothyroidism, Thyroid Disease, Other Laterality Cases: Left: Arthroscopy Knee Other Surgeries: Yes: Appendectomy, Colonoscopy, Tubal Ligation. No: Pacemaker Amputation: No Fractures: Yes - *Social History Educational Level: Completed College Smoking Status: Current every day smoker Tobacco Type: cigarettes # Packs/Day (cigarettes): 1 Alcohol Intake: never Substance Use Type: former substance user, opiates, painkillers *Occupational Status:: disabled Housing: apartment *Travel in the last 8 weeks: None - Psychiatric History Pschychiatric History:: Reports:: Anxiety, Depression Family Hx:: Cancer Meds Home Medications Medication Instructions Recorded Confirmed Type Acetaminophen [Tylenol 500mg 500 mg PO NEEDED PRN 04/20/18 09/25/19 History tablet] pregabalin 75 mg capsule 75 mg PO BID #60 cap 05/02/19 09/25/19 Rx metformin 500 mg tablet 500 mg PO BID #180 tab 05/24/19 09/25/19 Rx pantoprazole 40 mg tablet,delayed 40 mg PO DAILY #90 tab 08/22/19 09/25/19 Rx release Atorvastatin Calcium [Atorvastatin 20 mg PO HS 09/25/19 09/25/19 History 20mg Tab] Citalopram Hydrobromide 20 mg PO DAILY 09/25/19 09/25/19 History [Citalopram HBr] Diclofenac Sodium [Voltaren 100gm 2 g TOPICAL QID PRN 09/25/19 09/25/19 History Topical Gel] Ferrous Sulfate [Slow Fe] 142 mg PO DAILY 09/25/19 09/25/19 History Levothyroxine Sodium [Synthroid 100 mcg PO DAILY 09/25/19 09/25/19 History 100mcg (0.1mg) tablet] Losartan Potassium [Cozaar 25mg 25 mg PO HS 09/25/19 09/25/19 History Tablets] Tizanidine HCl See Rx Instructions .ROUTE 09/25/19 09/25/19 History .COMPLEX PRN Topiramate See Rx Instructions .ROUTE .COMPLEX 09/25/19 09/25/19 History Trazodone HCl 100 mg PO HS 09/25/19 09/25/19 History Verapamil HCl [[place] SR 180mg 180 mg PO DAILY 09/25/19 09/25/19 History tablet] Warfarin Sodium [Coumadin 5mg 5 mg PO DAILY 09/25/19 09/25/19 History tablet] buPROPion HCL [Wellbutrin 75mg See Rx Instructions PO BID 09/25/19 09/25/19 History Tablet] Allergies Allergy/AdvReac Type Severity Reaction Status Date / Time rifampin [RIFAMPIN] Allergy Severe UNABLE TO Verified 09/24/19 21:24 BREATH tetanus and diphtheria Allergy Mild RED Verified 09/24/19 10:55 toxoids [TETANUS & DIPHTHERIA TOXOIDS] Exam Vital signs and Labs for La
[2019-09-25 07:39] LABS: Basophils % 0.5 % (0.1-2.0); Eosinophils % 1.6 % (0.1-12.0); Hematocrit 33.7 % (37.0-47.0); Lymphocytes # 3.5 K/mm3 (0.7-4.5); Lymphocytes % 41.6 % (10-50); Mean Corpuscular HGB Conc 32.6 g/dL (31.8-35.4); Mean Corpuscular Hemoglobin 32.4 pg (27.0-31.2); Mean Corpuscular Volume 99.2 fl (81-99); Mean Platelet Volume 10.9 fl (7.4-10.4); Monocytes % 3.6 % (1.7-9.3); Neutrophils # 4.4 K/mm3 (1.8-7.8); Neutrophils % 52.8 % (37.0-80.0); Platelet Count 207 K/mm3 (142-424); White Blood Count 8.4 K/mm3 (4.8-10.8)
[2019-09-25 07:44] LABS: Chloride 114 mmol/L (98-107)
[2019-09-25 07:45] LABS: Potassium 3.5 mmoL/L (3.5-5.1); Sodium 138 mmol/L (136-145)
[2019-09-25 07:47] LABS: Blood Urea Nitrogen 9 mg/dl (7-17); Creatinine Clearance Estimated 65 mL/min (50-200); Estimated Glomerular Filt Rate 51 ml/min (>60); GFR (African American) 62 ML/MIN (>60)
[2019-09-25 07:48] LABS: Anion Gap 8.5 mEq/L (5-15); Calcium 7.8 mg/dl (8.4-10.2); Carbon Dioxide 19 mmol/L (22.0-30.0); Glucose 64 mg/dl (74-100)
[2019-09-25 07:52] LABS: Cholesterol 83 mg/dl (140-200); Triglycerides 141 mg/dl (30-150); VLDL Cholesterol 28 mg/dL (0-40)
[2019-09-25 07:53] LABS: Chol/HDL Ratio 2.4 (1-3.5); HDL Cholesterol 35 mg/dl (40-60)
--- NOTE | 2019-09-25 08:00 | CA_ITS ---
APPROVED REPORT EXAM: Comprehensive 2D, Doppler, and color-flow Echocardiogram Eyeglass Lens Generator: Brandi Sarabia CRT Ht: 5 ft 8 in Wt: 166lbs BSA: 1.89 BP: 99/69 mmHg Indications: cp, cva, + pfo, smoker, copd, syncope, dm, hld 2D Dimensions LVOT 2.36 cm (M/F) 1.5-2.5 M-Mode Dimensions RVDd 3.47 cm (0.9-2.6) LVDd 4.62 cm (3.5-5.7) LVDs 3.40 cm (3.5-5.7) IVSd 1.28 cm (0.6-1.1) PWd 0.80 cm (0.6-1.1) EF (Teich) 51.80% FS 26.40% EDV (Teich) 98.30 mL ESV (Teich) 47.40 mL LV Diastology E/A Ratio 1.04 Mitral Valve MV A Velocity 71.00 (40-130 cm/s) Left Ventricle Left atrium is normal size, left ventricle is normal size, there is no concentric left ventricular hypertrophy, visually estimated ejection fraction 55% with no regional wall motion abnormality. Diastolic parameters are within normal range. Right Ventricle Right atrium and right ventricle mildly enlarged with normal contractility. Aortic Valve Aortic valve is minimally thickened and fibrosed. There is no aortic stenosis or aortic insufficiency. Mitral Valve Mitral valve is grossly normal, there is mild mitral regurgitation. Tricuspid Valve Tricuspid valve is grossly normal, there is mild tricuspid regurgitation. Calculated right ventricular systolic pressure is 29 mmHg. Pulmonic Valve Pulmonic valve is poorly visualized. Great Vessels Aortic root is normal size. Pericardium No significant pericardial effusion noted. Conclusion 1. Normal left ventricular size, preserved left ventricular systolic function, visually estimated ejection fraction 55% with no regional wall motion abnormality. Diastolic parameters are within normal range. 2. Mildly enlarged right atrium and right ventricle contractility of the right ventricle is normal. 3. Mild mitral and tricuspid regurgitation, calculated right ventricular systolic pressure 29 mmHg. 4. No significant pericardial effusion noted 5. There is no obvious flow across the interatrial septum, if clinically indicated repeat study with saline contrast bubble study is recommended to exclude presence of intracardiac shunt. Electronically signed by : Vini Robin, 09/25/2019 21:36:20
[2019-09-25 08:12] LABS: Direct LDL Cholesterol < 30.00 mg/dL (100-129); Magnesium 0.8 mg/dl (1.6-2.3)
[2019-09-25 08:14] LABS: INR 6.96 (0.9-1.1); Prothrombin Time 63.1 seconds (9.4-11.8)
--- NOTE | 2019-09-25 08:36 | HMH.PHAVTE ---
[facility] Pharmacy VTE Monitoring - Patient Demographics Admission date: 09/25/19 Report Date: 09/25/19 Time: 08:36 Allergies/Adverse Reactions: Patient Allergies rifampin [RIFAMPIN] Allergy (Severe, Verified 09/24/19 21:24) UNABLE TO BREATH tetanus and diphtheria toxoids [TETANUS & DIPHTHERIA TOXOIDS] Allergy (Mild, Verified 09/24/19 10:55) RED Height: 1.73 m Weight: 74.389 kg Patient Problems: Current Active Problems (Last Updated 10/17/17 @ 14:24 by SHAVON Armenta) Colitis (Acute) Weight loss (Acute) Elevated troponin (Acute) Renal insufficiency (Acute) - VTE Risk Labs: VTE Related Lab Results Hgb 11.0 g/dL (12.2-16.2) L D 09/25/19 06:39 Hct 33.7 % (37.0-47.0) L 09/25/19 06:39 Plt Count 207 K/mm3 (142-424) 09/25/19 06:39 PT 63.1 seconds (9.4-11.8) H 09/25/19 06:39 INR 6.96 (0.9-1.1) H 09/25/19 06:39 BUN 9 mg/dl (7-17) 09/25/19 06:39 Creatinine 1.10 mg/dl (0.52-1.04) H 09/25/19 06:39 Estimated Creat Clear 65 mL/min (50-200) 09/25/19 06:39 Was VTE Risk Assessment Performed: Yes VTE Score: 5 VTE Risk Level: Low Risk Clinical Trial Participant: No - Prophylaxis VTE Prophylaxis Ordered?: Yes Types of VTE Prophylaxis: TEDS Knee High (INR WAS ALSO SUPRATHERAPEUTIC )
--- NOTE | 2019-09-25 09:10 | HMH.PHAINT ---
HOME MEDICATION RECONCILIATION COMPLETED USING LIST FROM DR. MIMS OFFICE.
--- NOTE | 2019-09-25 10:04 | XR_ITS ---
PROCEDURE: XR CHEST 2V CLINICAL HISTORY: SOA COMPARISON: XR CHEST 2V from 09/24/2019 FINDINGS: The cardiomediastinal silhouette and pulmonary vascularity are within normal limits. The lungs are clear without infiltrates, suspicious nodules, or pleural effusions. No acute bony abnormalities. The somewhat hyperdense area right supraclavicular region is not seen on today's study and probably represent and a ball of hair which has subsequently been pulled out of the field of view. The mild age indeterminate compression fracture T4 is stable. IMPRESSION: No acute findings. Dictated by: Dr. Keyur Olivo MD 09/25/2019 14:[address] Keyur Olivo MD in [place] 09/25/2019 14:18
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
--- NOTE | 2019-09-25 11:25 | HMH.HP ---
*Admission Date: 09/25/19 *History of present illness: 59-year-old female patient into the emergency room per squad reports feeling sick for 2 weeks with increasing abdominal pain, nausea vomiting and diarrhea. She denies fever or blood in emesis or stool. She has had a weight loss. White blood cell count was 12.9, H/H 12.6/38.8, troponin 0.07 in the ED 0.05 to follow, BUN 10, creatinine 1.3 diarrhea panel was negative, and SARS-COV-2 IgG/IgM negative. She did receive pain medications, fluids, and antiemetics in ED, pain was controlled when she came to the floor. 09/25/19 Abd/Pelvis CT: IMPRESSION: There is mild diffuse colonic wall thickening. This is nonspecific and could be due to nondistention or mild colitis. Distended gallbladder Dictated by: Dr. Mendoza, 09/25/19 CXR: IMPRESSION: 1. No acute cardiothoracic findings. 2. Mild wedging of T4 vertebral body age indeterminate which may be better evaluated with CT or MRI if clinically warranted Dictated by: Dr. Mendoza, Surgery has seen and rec: No plans for urgent surgical intervention at this time. Unclear as to the etiology of the patient's symptoms. Continue medical management. I will review her CT scan with the radiologist. Gastroenterology evaluation may be beneficial. [facility] History Medical History: Reports:: Anxiety, Chronic Obstructive Pulmonary Disease (COPD), Cerebrovascular Accident, Depression, Diabetes Mellitus Type 2, Hyperlipidemia, Lung Disease, Migraine Denies:: Diabetes Mellitus Type 1, Internal Pacemaker, Seizures *Have you ever received a pneumonia vaccine?: Yes *Have you received a flu vaccine this season?: No Other Medical History: Reports: Hypothyroidism, Thyroid Disease, Other Laterality Cases: Left: Arthroscopy Knee Other Surgeries: Yes: Appendectomy, Colonoscopy, Tubal Ligation. No: Pacemaker Amputation: No Fractures: Yes - *Social History Educational Level: Completed College Smoking Status: Current every day smoker Tobacco Type: cigarettes # Packs/Day (cigarettes): 1 Alcohol Intake: never Substance Use Type: former substance user, opiates, painkillers *Occupational Status:: disabled Housing: apartment *Travel in the last 8 weeks: None - Psychiatric History Pschychiatric History:: Reports:: Anxiety, Depression Family Hx:: Cancer Review of Systems - Review of Systems Review of systems:: pertinent systems reviewed and negative unless documented below - Constitutional Reports body ache(s), Reports fatigue, Reports lack of energy, Reports weight loss - Eyes Denies blurry vision, Denies change in vision - *Cardiovascular Denies chest pain - *Neurologic Reports weakness, Denies frequent falls, Denies seizure-like activity Meds Home Medications Medication Instructions Recorded Confirmed Type Acetaminophen [Tylenol 500mg 500 mg PO NEEDED PRN 04/20/18 09/25/19 History tablet] pregabalin 75 mg capsule 75 mg PO BID #60 cap 05/02/19 09/25/19 Rx metformin 500 mg tablet 500 mg PO BID #180 tab 05/24/19 09/25/19 Rx pantoprazole 40 mg tablet,delayed 40 mg PO DAILY #90 tab 08/22/19 09/25/19 Rx release Atorvastatin Calcium [Atorvastatin 20 mg PO HS 09/25/19 09/25/19 History 20mg Tab] Citalopram Hydrobromide 20 mg PO DAILY 09/25/19 09/25/19 History [Citalopram HBr] Diclofenac Sodium [Voltaren 100gm 2 g TOPICAL QID PRN 09/25/19 09/25/19 History Topical Gel] Ferrous Sulfate [Slow Fe] 142 mg PO DAILY 09/25/19 09/25/19 History Insulin NPH Human Isophane 23 units SQ BID 09/25/19 09/25/19 History [Novolin N 100 Units/mL 10mL Vial] Levothyroxine Sodium [Synthroid 100 mcg PO DAILY 09/25/19 09/25/19 History 100mcg (0.1mg) tablet] Losartan Potassium [Cozaar 25mg 25 mg PO HS 09/25/19 09/25/19 History Tablets] Limon-3 Acid Ethyl Esters 2 cap PO BID 09/25/19 09/25/19 History Tizanidine HCl 4 mg PO Q4HP PRN 09/25/19 09/25/19 History Topiramate 50 mg PO BID 09/25/19 09/25/19 History Trazodone HCl 100 mg PO HS 09/25/19
--- NOTE | 2019-09-25 12:38 | SW/DCPLANNER ---
I have spoke with this patient regarding discharge plans. Patient stated that she intends to return home and has all equipment that she would need at home. Patient stated that her friend and her niece are going to assist patient in cleaning up her house once ready for discharge. Patient is agreeable with home health services if absolutely necessary. Patient stated that she will have friends/family to assist with needs and grocery shopping. CM will continue to follow up with this patient until ready for discharge. Discharge date is unknown at this time.
--- NOTE | 2019-09-25 13:07 | CT_ITS ---
PROCEDURE: CT THORACIC SPINE WO/W CON CLINICAL HISTORY: T4 wedging, Weight loss COMPARISON: [facility] CT CHEST W/O CONTRAST from 09/22/2014 CXR CHEST(2 VIEWS-NOT PORTABLE) from 03/31/2017 XR CHEST 2V from 09/25/2019 TECHNIQUE: Axial images obtained with sagittal and coronal reformats. All CT scans at the facility use one or more dose reduction, viz: automated exposure control, ma/kV adjustment per patient size (including targeted exams where dose is matched to indication, i.e. head), or iterative reconstruction technique. FINDINGS: Normal alignment. There is mild wedging involving the anterior superior aspect of T4. No retropulsion. No bony destructive process or abnormal enhancement There are mild degenerative changes of the thoracic spine with slight decrease in the disc spaces. No lytic or blastic lesions apparent. No paraspinal masses. Incidental note is made aberrant origin of the right subclavian artery which traverses posterior to the esophagus IMPRESSION: 1. Mild wedging of T4 of the anterior superior endplate with loss of height anteriorly of approximately 10-15 percent which appears chronic. Without retropulsion 2. Mild degenerative changes. 3. 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
[2019-09-25 16:32] LABS: POC Glucose,Bedside 87 (70-110)
--- NOTE | 2019-09-25 20:25 | PC.NURSE ---
PT HAS BEEN RESTING IN BED MOST OF DAY, BUT HAS SAT UP TO CHAIR TWICE THIS SHIFT. TOLERATING WELL. PAIN MEDS GIVEN PER MAR FOR NECK AND BACK PAIN W/ OCCASIONAL ABDOMINAL PAIN. AMBULATES W/ STANDBY ASSISTANCE. HAS HAD 2 LOOSE STOOL THIS SHIFT. ANTI-EMETIC MEDS GIVEN W/ ADEQUATE RELIEF. NO NEEDS VOICED. REPORT GIVEN TO Enrique STACK RN
--- NOTE | 2019-09-25 21:24 | PC.NURSE ---
Patient encouraged to get cleaned up and have bed linens changed. Patient stated family was bringing her clothes in the morning and she would at that time; passed on to patient's nurse.
[2019-09-26] VITALS (8 sets, daily range): BP systolic 106–153; BP diastolic 58–77; PULSE 60–100; RESP 14–17; TEMP 36.8–37; O2SAT 97–99; BMI 24.8; BMI 24.7
[2019-09-26 01:33] LABS: POC Glucose,Bedside 84 (70-110)
[2019-09-26 01:33] LABS: POC Glucose,Bedside 89 (70-110)
[2019-09-26 01:33] LABS: POC Glucose,Bedside 77 (70-110)
[2019-09-26 06:08] LABS: POC Glucose,Bedside 84 (70-110)
[2019-09-26 06:33] LABS: Basophils % 0.3 % (0.1-2.0); Eosinophils # 0.1 K/mm3 (0.0-0.4); Eosinophils % 1.5 % (0.1-12.0); Hematocrit 36.1 % (37.0-47.0); Hemoglobin 11.7 g/dL (12.2-16.2); Lymphocytes # 3.4 K/mm3 (0.7-4.5); Lymphocytes % 42.3 % (10-50); Mean Corpuscular HGB Conc 32.4 g/dL (31.8-35.4); Mean Corpuscular Hemoglobin 32.3 pg (27.0-31.2); Mean Corpuscular Volume 99.6 fl (81-99); Mean Platelet Volume 9.8 fl (7.4-10.4); Monocytes # 0.4 K/mm3 (0.1-1.0); Monocytes % 4.3 % (1.7-9.3); Neutrophils # 4.1 K/mm3 (1.8-7.8); Neutrophils % 51.5 % (37.0-80.0); Platelet Count 218 K/mm3 (142-424); Red Blood Count 3.63 M/mm3 (4.20-5.40); Red Cell Distribution Width 16.4 % (11.5-17.5)
[2019-09-26 06:41] LABS: Chloride 114 mmol/L (98-107)
[2019-09-26 06:42] LABS: Potassium 3.6 mmoL/L (3.5-5.1); Sodium 140 mmol/L (136-145)
[2019-09-26 06:44] LABS: Blood Urea Nitrogen 3 mg/dl (7-17); Creatinine Clearance Estimated 89 mL/min (50-200); Estimated Glomerular Filt Rate 73 ml/min (>60); GFR (African American) 89 ML/MIN (>60)
[2019-09-26 06:45] LABS: Anion Gap 12.6 mEq/L (5-15); Calcium 8.3 mg/dl (8.4-10.2); Carbon Dioxide 17 mmol/L (22.0-30.0); Glucose 87 mg/dl (74-100)
--- NOTE | 2019-09-26 07:11 | P.PN_ITS ---
Subjective Narrative: Patient is still having diarrhea. Diarrhea PCR panel negative for infectious etiology. She does state that she has had an appetite. She is apparently still on an n.p.o. status. Of note, INR on admission was 7 Exam Vital signs and Labs for Last 24 Hours: Temp Pulse Resp BP Pulse Ox 98.2 F 77 16 115/58 L 98 09/26/19 04:00 09/26/19 04:00 09/26/19 04:00 09/26/19 04:00 09/26/19 04:00 Laboratory Results - last 24 hr 09/25/19 05:42: POC Glucose 84 09/25/19 06:39: Sodium 138, Potassium 3.5, Chloride 114 H, Carbon Dioxide 19 L D , Anion Gap 8.5, BUN 9, Creatinine 1.10 H, Estimated Creat Clear 65, Estimated GFR 51 L, Est GFR ( Amer) 62 D, Glucose 64 L, Calcium 7.8 L 09/25/19 06:39: WBC 8.4 D, RBC 3.40 L, Hgb 11.0 L D, Hct 33.7 L, MCV 99.2 H, MCH 32.4 H, MCHC 32.6, RDW 16.5, Plt Count 207, MPV 10.9 H, Neut % (Auto) 52.8, Lymph % (Auto) 41.6, Mcclain % (Auto) 3.6, Eos % (Auto) 1.6, Baso % (Auto) 0.5, Neut # (Auto) 4.4, Lymph # (Auto) 3.5, Mcclain # (Auto) 0.3, Eos # (Auto) 0.1, Baso # (Auto) 0.0 09/25/19 06:39: PT 63.1 H, INR 6.96 H 09/25/19 06:39: Magnesium 0.8 L, Triglycerides 141, Cholesterol 83 L, LDL Cholesterol Direct < 30.00 L, VLDL Cholesterol 28, HDL Cholesterol 35 L, Cholesterol/HDL Ratio 2.4 09/25/19 11:21: POC Glucose 77 09/25/19 16:17: POC Glucose 87 09/25/19 21:07: POC Glucose 89 09/26/19 05:58: POC Glucose 84 09/26/19 06:12: WBC 8.0, RBC 3.63 L, Hgb 11.7 L, Hct 36.1 L, MCV 99.6 H, MCH 32.3 H, MCHC 32.4, RDW 16.4, Plt Count 218, MPV 9.8, Neut % (Auto) 51.5, Lymph % (Auto) 42.3, Mcclain % (Auto) 4.3, Eos % (Auto) 1.5, Baso % (Auto) 0.3, Neut # (Auto) 4.1, Lymph # (Auto) 3.4, Mcclain # (Auto) 0.4, Eos # (Auto) 0.1, Baso # (Auto) 0.0 09/26/19 06:12: Sodium 140, Potassium 3.6, Chloride 114 H, Carbon Dioxide 17 L, Anion Gap 12.6, BUN 3 L D, Creatinine 0.80 D, Estimated Creat Clear 89, Estimated GFR 73, Est GFR ( Amer) 89 D, Glucose 87 D, Calcium 8.3 L I & O for Last 24 hours: Intake & Output 09/23/19 09/24/19 09/25/19 09/26/19 11:59 11:59 11:59 11:59 Intake Total 241 / 241 2198 / 2198 Output Total 120 / 120 1050 / 1050 Balance 121 / 121 1148 / 1148 Weight 164 lb 164 lb 2 oz - *Routine Abdominal Exam Comments: Abdomen is soft and nontender Progress Note: A&P Assessment and Plan for All Diagnoses:: I will go ahead and place an order for a full liquid diet. Gastroenterology input would be likely beneficial. Would not perform colonoscopy urgently at this time due to supratherapeutic INR
[2019-09-26 08:02] LABS: Magnesium 1.7 mg/dl (1.6-2.3)
[2019-09-26 08:47] LABS: INR 4.34 (0.9-1.1); Prothrombin Time 40.6 seconds (9.4-11.8)
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
[2019-09-26 11:37] LABS: POC Glucose,Bedside 95 (70-110)
--- NOTE | 2019-09-26 13:08 | HMH.DCSUM ---
General - General Admission date:: 09/25/19 Discharge date: 09/26/19 HPI HPI: 59-year-old female patient into the emergency room per squad reports feeling sick for 2 weeks with increasing abdominal pain, nausea vomiting and diarrhea. She denies fever or blood in emesis or stool. She has had a weight loss. White blood cell count was 12.9, H/H 12.6/38.8, troponin 0.07 in the ED 0.05 to follow, BUN 10, creatinine 1.3 diarrhea panel was negative, and SARS-COV-2 IgG/IgM negative. She did receive pain medications, fluids, and antiemetics in ED, pain was controlled when she came to the floor. 09/25/19 Abd/Pelvis CT: IMPRESSION: There is mild diffuse colonic wall thickening. This is nonspecific and could be due to nondistention or mild colitis. Distended gallbladder Dictated by: Dr. Mendoza, 09/25/19 CXR: IMPRESSION: 1. No acute cardiothoracic findings. 2. Mild wedging of T4 vertebral body age indeterminate which may be better evaluated with CT or MRI if clinically warranted Dictated by: Dr. Mendoza, Surgery has seen and rec: No plans for urgent surgical intervention at this time. Unclear as to the etiology of the patient's symptoms. Continue medical management. I will review her CT scan with the radiologist. Gastroenterology evaluation may be beneficial. Hospital Course Hospital Course: 59-year-old female patient into the emergency room per squad reports feeling sick for 2 weeks with increasing abdominal pain, nausea vomiting and diarrhea. She denies fever or blood in emesis or stool. She has had a weight loss. White blood cell count was 12.9, H/H 12.6/38.8, troponin 0.07 in the ED 0.05 to follow, BUN 10, creatinine 1.3 diarrhea panel was negative, and SARS-COV-2 IgG/IgM negative. She did receive pain medications, fluids, and antiemetics in ED, pain was controlled when she came to the floor. 09/25/19 Abd/Pelvis CT: IMPRESSION: There is mild diffuse colonic wall thickening. This is nonspecific and could be due to nondistention or mild colitis. Distended gallbladder Dictated by: Dr. Mendoza, 09/25/19 CXR: IMPRESSION: 1. No acute cardiothoracic findings. 2. Mild wedging of T4 vertebral body age indeterminate which may be better evaluated with CT or MRI if clinically warranted Dictated by: Dr. Mendoza, 09/25/[address] T-Sp[address]: IMPRESSION: 1. Mild wedging of T4 of the anterior superior endplate with loss of height anteriorly of approximately 10-15 percent which appears chronic. Without retropulsion 2. Mild degenerative changes. 3. 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 Normal left ventricular size, preserved left ventricular systolic function, visually estimated ejection fraction 55% with no regional wall motion abnormality. Diastolic parameters are within normal range. 2. Mildly enlarged right atrium and right ventricle contractility of the right ventricle is normal. 3. Mild mitral and tricuspid regurgitation, calculated right ventricular systolic pressure 29 mmHg. 4. No significant pericardial effusion noted 5. There is no obvious flow across the interatrial septum, if clinically indicated repeat study with saline contrast bubble study is recommended to exclude presence of intracardiac shunt. Electronically signed by : Vini Robin, Surgery has seen and rec: No plans for urgent surgical intervention at this time. Unclear as to the etiology of the patient's symptoms. Continue medical management. I will review her CT scan with the radiologist. Gastroenterology evaluation may be beneficial. 09/25/19: I will go ahead and place an order for a full liquid diet. Gastroenterology input would be likely beneficial. Would not perform colonoscopy urgently at this time due to supratherapeutic INR Cards recs: History of CVA and prior echo reportedly showed PFO for which patient has been on coumadin residential but with widely
--- NOTE | 2019-09-26 14:11 | HMH.PHAINT ---
DISCHARGE COUNSELING-DISCUSSED DISCHARGE MEDICATIONS AND COUMADIN FOLLOW UP IN ACC ON TUESDAY/TUESDAY.
[2019-09-26 17:10] LABS: POC Glucose,Bedside 123 (70-110)
--- NOTE | 2019-09-26 19:14 | PC.NURSE ---
report given to denise
[2019-09-29 18:32] LABS: QuantiFERON-TB Gold Plus Negative (Negative)
== END 2019-09-26 19:10 | disposition home or self-care (01) ==
LOC: ER 21:24 → 2ND 09-25 00:40
PROVIDERS: Nurse Practitioner Family; Physician Assistant; Admitting Provider Emergency Medicine; Emergency Provider Emergency Medicine; PCP Emergency Medicine; Visit Provider Emergency Medicine
DX: K52.9 Noninfective gastroenteritis and colitis, unspecified (principal); E11.9 Type 2 diabetes mellitus without complications; R79.1 Abnormal coagulation profile; E78.5 Hyperlipidemia, unspecified; Z72.0 Tobacco use; E03.9 Hypothyroidism, unspecified; Z79.01 Long term (current) use of anticoagulants; Z79.899 Other long term (current) drug therapy
CPT/HCPCS: 36415; 71046; 72130; 74177; 80048; 80053; 80061; 81001; 82150; 82962; 83605; 83690; 83735; 84484; 85025; 85610; 85651; 86140; 86328; 86480; 87507; 93005; 93306; 96365; 96375; 96376; 99284; G0378; J2405; Q9967

== ENCOUNTER 2019-10-02 14:15 | Outpatient (CLI) | payer MEDICARE, SELFPAY ==
[2019-10-02 14:51] LABS: PHA INR Fingerstick 1.4 (0.9-1.1)
== END 2019-10-02 14:53 | disposition home or self-care (01) ==
LOC: ACC 14:17
PROVIDERS: PCP Emergency Medicine; Visit Provider Emergency Medicine
DX: Z51.81 Encounter for therapeutic drug level monitoring (principal); Z79.01 Long term (current) use of anticoagulants
CPT/HCPCS: 85610; 99211; G0463

== ENCOUNTER 2019-10-10 14:32 | Outpatient (CLI) | payer MEDICARE, SELFPAY ==
--- NOTE | 2019-10-10 | XR_ITS ---
PROCEDURE: XR ANKLE LT MIN 3V CLINICAL INDICATION: COMPARISON: No exams were available for comparison FINDINGS: There is a smooth 5.5 millimeter bony ossicle inferior to the tip of the medial malleolus. Ankle mortise is intact. There is no acute fracture or dislocation. Soft tissues are unremarkable. IMPRESSION: Probable remote medial malleolar fracture Dictated by: Bjorn Wilkes 10/11/2019 10:25 Electronically signed by Bjorn Wilkes in [place] 10/11/2019 10:25
[2019-10-10 16:02] LABS: PHA INR Fingerstick 1.9 (0.9-1.1)
== END 2019-10-10 16:13 | disposition home or self-care (01) ==
PROVIDERS: PCP Emergency Medicine; Visit Provider Emergency Medicine
DX: R55 Syncope and collapse (principal); R52 Pain, unspecified; Z51.81 Encounter for therapeutic drug level monitoring; Z79.01 Long term (current) use of anticoagulants
CPT/HCPCS: 73610; 85610; 93270; 99211; G0463

== ENCOUNTER → 2019-10-15 12:49 | Outpatient (CLI) | payer MEDICARE, SELFPAY ==
--- NOTE | 2019-10-15 12:50 | CA_ITS ---
APPROVED REPORT [employer]er: KAYKAY Laterality: Bilateral Study Quality: Good Indications: syncope Doppler Spectral Velocity Analysis dICA (R) 84.70/31.10 cm/s dICA (L) 84.40/31.60 cm/s Key (R) 68.50/19.90 cm/s Key (L) 99.10/35.40 cm/s pICA (R) 68.90/11.50 cm/s pICA (L) 89.20/21.50 cm/s dCCA (R) 75.80/17.30 cm/s dCCA (L) 116.20/33.90 cm/s pCCA (R) 97.60/17.70 cm/s pCCA (L) 152.90/32.40 cm/s Vert (R) 47.00/7.30 cm/s Vert (L) 38.50/8.90 cm/s ICA/CCA 1.10 ICA/CCA 0.90 Findings Duplex evaluation demonstrates stenosis of the right proximal internal carotid artery <20% with PSV <140 cm/sec, EDV <100 cm/sec, and IC/CC Ratio <4.0.Duplex evaluation demonstrates stenosis of the left proximal internal carotid artery <20% with PSV <140 cm/sec, EDV <100 cm/sec, and IC/CC Ratio <4.0.Antegrade flow seen bilateral vertebral arteries. Conclusion Duplex evaluation demonstrates stenosis of the right proximal internal carotid artery <20% with PSV <140 cm/sec, EDV <100 cm/sec, and IC/CC Ratio <4.0. Duplex evaluation demonstrates stenosis of the left proximal internal carotid artery <20% with PSV <140 cm/sec, EDV <100 cm/sec, and IC/CC Ratio <4.0. Antegrade flow seen bilateral vertebral arteries. Electronically signed by : Brown Mendoza MD 10/15/2019 17:19:24
== END ==
PROVIDERS: PCP Emergency Medicine; Visit Provider Urology
DX: E78.5 Hyperlipidemia, unspecified (principal); I10 Essential (primary) hypertension; I27.20 Pulmonary hypertension, unspecified; Q21.1 Atrial septal defect; R55 Syncope and collapse; Z72.0 Tobacco use; Z86.718 Personal history of other venous thrombosis and embolism
CPT/HCPCS: 93880

== ENCOUNTER → 2019-10-16 13:31 | Outpatient (CLI) | payer MEDICARE, SELFPAY ==
[2019-10-16 14:32] LABS: INR 2.01 (0.9-1.1); Prothrombin Time 19.8 seconds (9.4-11.8)
[2019-10-16 15:13] LABS: Chloride 101 mmol/L (98-107); Potassium 3.5 mmoL/L (3.5-5.1); Sodium 134 mmol/L (136-145)
[2019-10-16 15:16] LABS: Anion Gap 15.5 mEq/L (5-15); Blood Urea Nitrogen 18 mg/dl (7-17); Calcium 7.4 mg/dl (8.4-10.2); Carbon Dioxide 21 mmol/L (22.0-30.0); Estimated Glomerular Filt Rate 38 ml/min (>60); GFR (African American) 47 ML/MIN (>60); Glucose 100 mg/dl (74-100)
== END ==
PROVIDERS: Visit Provider Urology
DX: E78.5 Hyperlipidemia, unspecified (principal); I10 Essential (primary) hypertension; I27.20 Pulmonary hypertension, unspecified; Q21.1 Atrial septal defect; R55 Syncope and collapse; Z72.0 Tobacco use; Z86.718 Personal history of other venous thrombosis and embolism
CPT/HCPCS: 36415; 80048; 85610

== ENCOUNTER → 2019-10-23 11:41 | Outpatient (CLI) | payer MEDICARE, SELFPAY ==
--- NOTE | 2019-10-23 11:56 | XR_ITS ---
PROCEDURE: XR ANKLE WT BEARING LT MIN 3V CLINICAL INDICATION: pain COMPARISON: XR ANKLE LT MIN 3V from 10/10/2019 FINDINGS: There is an old ununited fracture at the tip the medial malleolus. No acute fracture or dislocation is evident. The joint spaces are well-preserved. No significant degenerative/arthritic changes. No erosive changes evident. Other findings:None. IMPRESSION: No change with no acute finding. Old ununited fracture at the tip of the medial malleolus Dictated by: Brown Mendoza MD 10/23/2019 14:46 Electronically signed by Brown Mendoza MD in [place] 10/23/2019 14:46
--- NOTE | 2019-10-23 11:56 | XR_ITS ---
PROCEDURE: XR FOOT WT BEARING LT 3V CLINICAL INDICATION: pain COMPARISON: No exams were available for comparison FINDINGS: No fracture or dislocation. No lytic or blastic change. There is normal mineralization. There are mild osteoarthritic changes at the 1st metatarsophalangeal joint common 3rd PIP joint.. Mild osteoarthritic change 1st metatarsal tarsal joint. Other findings:None. IMPRESSION: Mild degenerative change, no acute finding Dictated by: Brown Mendoza MD 10/23/2019 14:18 Electronically signed by Brown Mendoza MD in [place] 10/23/2019 14:18
--- NOTE | 2019-10-23 11:56 | XR_ITS ---
PROCEDURE: XR ANKLE WT BEARING RT MIN 3V CLINICAL INDICATION: pain COMPARISON: ANKCMRT XR ankle RT min 3V from 06/02/2017 FINDINGS: No fracture or dislocation. No lytic or blastic change. There is normal mineralization. The joint spaces are well-preserved. No significant degenerative/arthritic changes. No erosive changes evident. Other findings:None. IMPRESSION: No acute findings. Dictated by: Brown Mendoza MD 10/23/2019 14:04 Electronically signed by Brown Mendoza MD in [place] 10/23/2019 14:04
--- NOTE | 2019-10-23 11:56 | XR_ITS ---
PROCEDURE: XR FOOT WT BEARING RT 3V CLINICAL INDICATION: pain COMPARISON: No exams were available for comparison FINDINGS: No fracture or dislocation. No lytic or blastic change. There is normal mineralization. The joint spaces are well-preserved. No significant degenerative/arthritic changes. No erosive changes evident. Other findings:None. IMPRESSION: No acute findings. Dictated by: Brown Mendoza MD 10/23/2019 14:02 Electronically signed by Brown Mendoza MD in [place] 10/23/2019 14:02
[2019-10-23 12:37] LABS: Chloride 93 mmol/L (98-107)
[2019-10-23 12:41] LABS: Carbon Dioxide 15 mmol/L (22.0-30.0); Sodium 130 mmol/L (136-145)
[2019-10-23 14:26] LABS: Anion Gap 26.1 mEq/L (5-15); Blood Urea Nitrogen 36 mg/dl (7-17); Calcium 7.2 mg/dl (8.4-10.2); Estimated Glomerular Filt Rate 13 ml/min (>60); GFR (African American) 16 ML/MIN (>60); Glucose 116 mg/dl (74-100); Potassium 4.1 mmoL/L (3.5-5.1)
== END ==
LOC: LAB 11:41 → RAD 11:54
PROVIDERS: PCP Emergency Medicine; Visit Provider Urology
DX: E11.9 Type 2 diabetes mellitus without complications (principal); I10 Essential (primary) hypertension; I27.20 Pulmonary hypertension, unspecified; M25.572 Pain in left ankle and joints of left foot; M25.571 Pain in right ankle and joints of right foot
CPT/HCPCS: 36415; 73610; 73630; 80048

== ENCOUNTER 2019-11-08 12:25 | Observation (INO) | payer MEDICARE, SELFPAY ==
[2019-11-08] VITALS (15 sets, daily range): BP systolic 110–163; BP diastolic 53–89; PULSE 46–77; RESP 13–20; TEMP 36.7–37.7; O2SAT 96–100; BMI 22.0; BMI 26.4
--- NOTE | 2019-11-08 12:28 | ECG_ITS ---
APPROVED REPORT Exam: Resting ECG HR:59 bpm ECG Measurements Heart Rate 59 AXES NJ 154 P 72 QRSd 90 QRS -6 QT 446 T -55 QTc 441 <Conclusion> Sinus bradycardia with fusion complexes ST & T wave abnormality, consider inferior ischemia Abnormal ECG Electronically signed by : William Jensen, 11/10/2019 08:09:03
--- NOTE | 2019-11-08 12:29 | XR_ITS ---
PROCEDURE: XR CHEST PORTABLE CLINICAL HISTORY: fever COMPARISON: [facility] CT CHEST W/O CONTRAST from 09/22/2014 CXR CHEST(2 VIEWS-NOT PORTABLE) from 03/31/2017 XR CHEST 2V from 09/24/2019 XR CHEST 2V from 09/25/2019 FINDINGS: There is mild cardiomegaly without failure. The lungs are clear without infiltrates, suspicious nodules, or pleural effusions. No acute bony abnormalities. IMPRESSION: The cardiomegaly otherwise negative Dictated by: Brown Mendoza MD 11/08/2019 14:26 Electronically signed by Brown Mendoza MD in [place] 11/08/2019 14:26
--- NOTE | 2019-11-08 12:30 | CT_ITS ---
PROCEDURE: CT HEAD/BRAIN WO CON CLINICAL INDICATION: altered mental stuat Altered mental status, altered level of consciousness, confusion, disorientation COMPARISON: [facility] CT HEAD W/O CONTRAST from 03/29/2016 TECHNIQUE: Axial images obtained. All CT scans at the facility use one or more dose reduction, viz: automated exposure control, ma/kV adjustment per patient size (including targeted exams where dose is matched to indication, i.e. head), or iterative reconstruction technique. FINDINGS: No midline shift, mass effect, intracranial hemorrhage, hydrocephalus, or extra-axial fluid collection is evident. There has been prior cervical surgery with rods along the upper cervical spine posteriorly. The calvarium has an unremarkable appearance. No mastoid effusion. No sinus air-fluid level. IMPRESSION: No change with no acute finding Dictated by: Brown Mendoza MD 11/08/2019 13:47 Electronically signed by Brown Mendoza MD in [place] 11/08/2019 13:47
--- NOTE | 2019-11-08 12:34 | HMH.EDGENADL ---
ED Disposition Clinical Impression: Hypokalemia, Suspected infectious meningitis Altered mental status Qualifiers: Altered mental status type: disorientation Qualified Code(s): R41.0 - Disorientation, unspecified Disposition: Still a Patient Condition on Discharge: Fair Time of Disposition: 16:31 - Critical Care Critical Care Time: Yes Attestation: On 11/08/19, the high probability of a clinically significant, sudden or life threatening deterioration of the following system(s) required my full and direct attention, intervention and personal management. The time I documented below is in addition to time spent performing reported procedures but includes the following listed in this critical care notation. Total Critical Care Time: 35 Vital system(s) involved:: Central Nervous System My critical care processes included: Assessment & monitoring of V/S, Initial and Re-exams, Medication Orders and management, Documentation Medical Decision Making - Medical Records Medical records reviewed: Yes: I reviewed the patient's medical records. - Gabriel Inquiry Pt receiving controlled substance: No Vital Signs: 11/08/19 12:25 11/08/19 12:32 11/08/19 12:55 Temperature 100 F H Temperature Source Rectal Rectal Pulse Rate Pulse Rate [Right Radial] 62 52 L Respiratory Rate 17 20 Blood Pressure Blood Pressure [Right Arm] 148/86 H 144/89 H Blood Pressure Mean [Right Arm] 106 107 Blood Pressure Source [Right Arm] Blood Pressure Position Blood Pressure Position [Right Arm] 02 Sat by Pulse Oximetry 98 98 Oxygen Delivery Method Room Air Room Air 11/08/19 13:25 11/08/19 14:00 11/08/19 14:15 Temperature Temperature Source Pulse Rate Pulse Rate [Right Radial] 54 L 65 55 L Respiratory Rate 20 13 15 Blood Pressure Blood Pressure [Right Arm] 140/70 163/73 H 141/69 H Blood Pressure Mean [Right Arm] 93 103 93 Blood Pressure Source [Right Arm] Blood Pressure Position Blood Pressure Position [Right Arm] 02 Sat by Pulse Oximetry 98 98 100 Oxygen Delivery Method Room Air Room Air 11/08/19 14:30 11/08/19 15:29 11/08/19 17:35 Temperature 99 F Temperature Source Oral Pulse Rate 49 L Pulse Rate [Right Radial] 49 L 46 L Respiratory Rate 20 20 18 Blood Pressure 142/74 H Blood Pressure [Right Arm] 141/69 H 149/69 H Blood Pressure Mean [Right Arm] 93 95 Blood Pressure Source [Right Arm] Automatic Cuff Blood Pressure Position Sitting Blood Pressure Position [Right Arm] Sitting 02 Sat by Pulse Oximetry 100 99 Oxygen Delivery Method Room Air Room Air - Lab Data Lab Results 11/08/19 10:35: Salicylates < 1.0 L 11/08/19 10:35: TSH 2.86, Free T4 Index 5.1 L, Thyroxine (T4) 10.4, T3 Uptake 49 H 11/08/19 12:29: Specimen Source Left radial, ABG pH 7.56 H*, ABG pCO2 25.2 L, ABG pO2 99.3, ABG HCO3 22.1, ABG Total CO2 22.8 L, ABG O2 Saturation 98, ABG Base Excess -0.2, Brown Test Acceptable 11/08/19 12:35: Urine Color Yellow, Urine Appearance Clear, Urine pH 6.0, Ur Specific [place] 1.015, Urine Protein Negative, Urine Glucose (UA) Negative, Urine Ketones Trace, Urine Blood Negative, Urine Nitrate Negative, Urine Bilirubin Negative, Urine Urobilinogen 1.0, Ur Leukocyte Esterase Negative, Urine RBC Occasional, Urine WBC 5-10, Ur Squamous Epith Cells 5-10, Urine Bacteria 2+, Hyaline Casts 3-5 11/08/19 12:35: WBC 8.7, RBC 3.17 L, Hgb 9.9 L, Hct 30.0 L, MCV 94.6, MCH 31.2, MCHC 32.9, RDW 16.5, Plt Count 219, MPV 12.4 H, Neut % (Auto) 65.7, Lymph % (Auto) 27.5, Hand % (Auto) 4.3, Eos % (Auto) 2.2, Baso % (Auto) 0.3, Neut # (Auto) 5.7, Lymph # (Auto) 2.4, Hand # (Auto) 0.4, Eos # (Auto) 0.2, Baso # (Auto) 0.0 11/08/19 12:35: Sodium 142, Potassium 2.3 L*, Chloride 104, Carbon Dioxide 26, Anion Gap 14.3, BUN 7, Creatinine 0.60, Estimated Creat Clear 105, Estimated GFR 102, Est GFR ( Amer) 124, Glucose 116 H, Calcium 8.0 L, Total Bilirubin 0.7, AST 22, ALT 21, Alkaline Phosphatase 110, Trop
[2019-11-08 12:50] LABS: Microscopic, Urine URINE MICROSCOPIC (MICROSCOPIC)
[2019-11-08 12:54] LABS: Basophils % 0.3 % (0.1-2.0); Eosinophils # 0.2 K/mm3 (0.0-0.4); Eosinophils % 2.2 % (0.1-12.0); Hemoglobin 9.9 g/dL (12.2-16.2); Lymphocytes # 2.4 K/mm3 (0.7-4.5); Lymphocytes % 27.5 % (10-50); Mean Corpuscular HGB Conc 32.9 g/dL (31.8-35.4); Mean Corpuscular Hemoglobin 31.2 pg (27.0-31.2); Mean Corpuscular Volume 94.6 fl (81-99); Mean Platelet Volume 12.4 fl (7.4-10.4); Monocytes # 0.4 K/mm3 (0.1-1.0); Monocytes % 4.3 % (1.7-9.3); Neutrophils # 5.7 K/mm3 (1.8-7.8); Neutrophils % 65.7 % (37.0-80.0); Platelet Count 219 K/mm3 (142-424); Red Blood Count 3.17 M/mm3 (4.20-5.40); Red Cell Distribution Width 16.5 % (11.5-17.5); White Blood Count 8.7 K/mm3 (4.8-10.8)
[2019-11-08 12:57] LABS: ABG Base Excess -0.2 mmol/L (-2.4-2.3); ABG HCO3 22.1 mmhg (22.0-26.0); ABG Oxygen Saturation 98 % (90-100); ABG PCO2 25.2 mmhg (35.0-45.0); ABG PO2 99.3 mmhg (80-100); ABG TCO2 22.8 mmhg (23-27)
[2019-11-08 12:57] LABS: Appearance,Urine CLEAR (Clear); Blood, Urine Negative (Negative); Color,Urine YELLOW (Yellow); Glucose,Urine (UA) Negative (Negative); Ketones,Urine TRACE (Negative); Leukocyte Esterase,Urine Negative (Negative); Nitrate,Urine Negative (Negative); Protein,Urine Negative (Negative); Specific Gravity, Urine 1.015 (1.005-1.030)
--- NOTE | 2019-11-08 12:57 | PC.NURSE ---
Pt to rad.
[2019-11-08 12:59] LABS: Allen's Test Acceptable; Source Left Radial
[2019-11-08 13:00] LABS: Alanine Aminotransferase 21 U/L (12-78); Albumin Level 3.3 g/dl (3.5-5.0); Alkaline Phosphatase 110 U/L (38-126); Anion Gap 14.3 mEq/L (5-15); Aspartate Amino Transferase 22 U/L (14-36); Bilirubin,Total 0.7 mg/dl (0.2-1.3); Blood Urea Nitrogen 7 mg/dl (7-17); Carbon Dioxide 26 mmol/L (22.0-30.0); Chloride 104 mmol/L (98-107); Creatinine Clearance Estimated 105 mL/min (50-200); Estimated Glomerular Filt Rate 102 ml/min (>60); GFR (African American) 124 ML/MIN (>60); Globulin 3.2 g/dL (1.3-3.2); Glucose 116 mg/dl (74-100); Sodium 142 mmol/L (136-145); Total Protein,Serum 6.5 g/dl (6.3-8.2)
[2019-11-08 13:01] LABS: ABG PH 7.56 mmol/L (7.35-7.45)
[2019-11-08 13:01] LABS: Lactic Acid 0.9 mmol/L (0.7-2.1)
[2019-11-08 13:06] LABS: Strep Scrn Group A (Rapid) Negative (Negative)
[2019-11-08 13:07] LABS: Bilirubin,Urine Negative (Negative); Ethyl Alcohol < 10 mg/dl (0-10)
[2019-11-08 13:08] LABS: Potassium 2.3 mmoL/L (3.5-5.1)
[2019-11-08 13:10] LABS: Bacteria,Urine 2+ /lpf; RBC,Urine Occasional #/hpf (0-3)
[2019-11-08 13:13] LABS: Amphetamine/Metha Screen,Urine Negative ng/ml (<1000); Barbiturates Screen,Urine Negative ng/ml (<200); Troponin I 0.03 ng/ml (0.00-0.034)
[2019-11-08 13:14] LABS: Benzodiazepines Screen,Urine Negative ng/ml (<200)
[2019-11-08 13:15] LABS: Cannabinoid Screen,Urine Negative ng/ml (<50); Cocaine Screen,Urine Negative ng/ml (<300)
[2019-11-08 13:16] LABS: Methadone Screen,Urine Negative ng/ml (<300); Opiate Screen,Urine Negative ng/ml (<300)
[2019-11-08 13:17] LABS: Phencyclidine Screen,Urine Negative ng/ml (<25)
[2019-11-08 13:19] LABS: INR 1.29 (0.9-1.1); Prothrombin Time 13.1 seconds (9.4-11.8)
[2019-11-08 13:31] LABS: Thyroid Stimulating Hormone 2.99 uIU/mL (0.465-4.68)
--- NOTE | 2019-11-08 13:50 | PC.NURSE ---
Pt consent for lumbar puncture signed, MD at bedside explaining procedure and risk associated with procedure.
--- NOTE | 2019-11-08 14:00 | PC.NURSE ---
Time out performed
--- NOTE | 2019-11-08 14:00 | PC.NURSE ---
Pt set up for lumbar puncture
--- NOTE | 2019-11-08 14:15 | PC.NURSE ---
Lumbar punctured performed per Dr Delacruz, pt tolerated well, no issues or distress noted. Pt laid flat and verbal order obtained for IV fluids. Pt on campus monitor, VSS.
[2019-11-08 16:27] LABS: Troponin I 0.03 ng/ml (0.00-0.034)
--- NOTE | 2019-11-08 16:50 | PC.NURSE ---
speaking to Dr Bell for consult of admission
[2019-11-08 17:13] LABS: Appearance,CSF Clear (Clear); Volume,CSF 4 mL; White Blood Cell,CSF 0 cells/uL (0-5)
[2019-11-08 17:14] LABS: Polynuclear WBCs,CSF 0 %; Red Blood Cell,CSF 0 cells/uL (0)
[2019-11-08 17:15] LABS: Mononuclear WBCs,CSF 0 %
--- NOTE | 2019-11-08 17:16 | PC.NURSE ---
report called to floor
--- NOTE | 2019-11-08 17:49 | PC.NURSE ---
Pt arrived to the floor at this time via stretcher.
--- NOTE | 2019-11-08 18:02 | PC.NURSE ---
Pt unable to verify meds, can only verify she takes coumadin per report from ER that prt attends the coumadin clinic here.
[2019-11-08 18:54] LABS: POC Glucose,Bedside 107 (70-110)
[2019-11-08 18:59] LABS: Salicylate < 1.0 mg/dL (2.0-20.0)
[2019-11-08 19:12] LABS: Triiodothryronine (T3) Uptake 49 % (23.5-40.5)
[2019-11-08 19:12] LABS: Troponin I 0.03 ng/ml (0.00-0.034)
[2019-11-08 19:13] LABS: Free Thyroxine Index 5.1 ug/dL (5.93-13.13); T4 (Thyroxine) 10.4 ug/dl (5.53-11.0)
[2019-11-08 19:26] LABS: Thyroid Stimulating Hormone 2.86 uIU/mL (0.465-4.68)
[2019-11-08 21:36] LABS: Chloride 105 mmol/L (98-107); Sodium 139 mmol/L (136-145)
[2019-11-08 21:39] LABS: Anion Gap 13.5 mEq/L (5-15); Blood Urea Nitrogen 6 mg/dl (7-17); Carbon Dioxide 23 mmol/L (22.0-30.0); Creatinine Clearance Estimated 138 mL/min (50-200); Estimated Glomerular Filt Rate 126 ml/min (>60); GFR (African American) 153 ML/MIN (>60); Glucose 197 mg/dl (74-100)
[2019-11-08 21:53] LABS: Potassium 2.5 mmoL/L (3.5-5.1)
[2019-11-08 21:55] LABS: Magnesium 0.6 mg/dl (1.6-2.3)
[2019-11-08 22:38] LABS: Calcium 7.1 mg/dl (8.4-10.2)
[2019-11-09] VITALS (9 sets, daily range): BP systolic 101–129; BP diastolic 50–79; PULSE 49–85; RESP 16–20; TEMP 36.6–37.1; O2SAT 93–98; BMI 26.8
[2019-11-09 01:17] LABS: POC Glucose,Bedside 196 (70-110)
--- NOTE | 2019-11-09 04:57 | PC.NURSE ---
shift summary, neurologically, pt alert, awake and oriented, with the exception of situation, strength sensation equal and strong bilaterally, no ataxia present, pt has delayed speech and difficulty finding words, pt has flight of thoughts, follows all commands, right eye wanders, does not accomodate, 2038 Dr Bell notified of K in ER of 2.3 and intervention, discussed repeating K level after intervention. new orders received and carried out 2151 Dr. Bell notified of K, Mg, and Ca levels on repeat lab, new orders received and carried out 2317 Dr. Bell notified of ABG results, no new orders received monitoring and evaluation advisor has shown SB, 40-60, with an inverted T wave, BP great than 100 systolic, pt denies dizziness, weakness or pain Currently pt speech clear, no longer delayed, no longer having difficulty finding words
[2019-11-09 05:55] LABS: Basophils % 0.1 % (0.1-2.0); Eosinophils # 0.1 K/mm3 (0.0-0.4); Eosinophils % 1.1 % (0.1-12.0); Hematocrit 25.8 % (37.0-47.0); Lymphocytes # 0.8 K/mm3 (0.7-4.5); Lymphocytes % 17.6 % (10-50); Mean Corpuscular HGB Conc 31.6 g/dL (31.8-35.4); Mean Corpuscular Hemoglobin 30.4 pg (27.0-31.2); Mean Corpuscular Volume 96.2 fl (81-99); Mean Platelet Volume 12.3 fl (7.4-10.4); Monocytes # 0.1 K/mm3 (0.1-1.0); Neutrophils # 3.7 K/mm3 (1.8-7.8); Neutrophils % 78.2 % (37.0-80.0); Platelet Count 144 K/mm3 (142-424); Red Blood Count 2.68 M/mm3 (4.20-5.40); Red Cell Distribution Width 16.6 % (11.5-17.5); White Blood Count 4.8 K/mm3 (4.8-10.8)
[2019-11-09 05:56] LABS: Hemoglobin 8.1 g/dL (12.2-16.2)
[2019-11-09 05:57] LABS: Anion Gap 12.8 mEq/L (5-15); Blood Urea Nitrogen 5 mg/dl (7-17); Carbon Dioxide 20 mmol/L (22.0-30.0); Chloride 109 mmol/L (98-107); Creatinine Clearance Estimated 140 mL/min (50-200); Estimated Glomerular Filt Rate 126 ml/min (>60); GFR (African American) 153 ML/MIN (>60); Glucose 146 mg/dl (74-100); Lactic Acid 0.7 mmol/L (0.7-2.1); Phosphorous 3.2 mg/dl (2.5-4.5); Sodium 139 mmol/L (136-145)
[2019-11-09 05:58] LABS: Potassium 2.8 mmoL/L (3.5-5.1)
[2019-11-09 06:08] LABS: INR 1.23 (0.9-1.1); Prothrombin Time 12.5 seconds (9.4-11.8)
[2019-11-09 06:09] LABS: ABG PCO2 28.6 mmhg (35.0-45.0); ABG PH 7.49 mmol/L (7.35-7.45); ABG PO2 70.9 mmhg (80-100)
[2019-11-09 06:10] LABS: ABG Base Excess -2.4 mmol/L (-2.4-2.3); ABG HCO3 21.1 mmhg (22.0-26.0); ABG Oxygen Saturation 93 % (90-100); ABG TCO2 21.9 mmhg (23-27); Allen's Test ACCEPTABLE; Oxygen ROOM AIR %; Source L RADIAL
[2019-11-09 06:34] LABS: ABG Base Excess -4.9 mmol/L (-2.4-2.3); ABG Oxygen Saturation 94 % (90-100); ABG PCO2 27.7 mmhg (35.0-45.0); ABG PH 7.45 mmol/L (7.35-7.45); ABG PO2 76.5 mmhg (80-100); ABG TCO2 19.8 mmhg (23-27)
[2019-11-09 06:35] LABS: Oxygen ROOM AIR %; Source R BRACHIAL
[2019-11-09 06:43] LABS: POC Glucose,Bedside 146 (70-110)
--- NOTE | 2019-11-09 07:57 | HMH.PHAVTE ---
[facility] Pharmacy VTE Monitoring - Patient Demographics Admission date: 11/08/19 Report Date: 11/09/19 Time: 07:57 Allergies/Adverse Reactions: Patient Allergies rifampin [RIFAMPIN] Allergy (Severe, Verified 11/08/19 12:45) UNABLE TO BREATH tetanus and diphtheria toxoids [TETANUS & DIPHTHERIA TOXOIDS] Allergy (Mild, Verified 11/08/19 12:45) RED tuberculin, purified protein deriva Allergy (Verified 11/09/19 07:50) Unknown allergy reaction Height: 1.65 m Weight: 73.085 kg Patient Problems: Current Active Problems (Last Updated 10/17/17 @ 14:24 by SHAVON Armenta) Altered mental status (Acute) Hypokalemia (Acute) Suspected infectious meningitis (Acute) - VTE Risk Labs: VTE Related Lab Results Hgb 8.1 g/dL (12.2-16.2) L D 11/09/19 05:39 Hct 25.8 % (37.0-47.0) L 11/09/19 05:39 Plt Count 144 K/mm3 (142-424) D 11/09/19 05:39 PT 12.5 seconds (9.4-11.8) H 11/09/19 05:39 INR 1.23 (0.9-1.1) H 11/09/19 05:39 APTT TNP 11/08/19 12:35 BUN 5 mg/dl (7-17) L 11/09/19 05:39 Creatinine 0.50 mg/dl (0.52-1.04) L 11/09/19 05:39 Estimated Creat Clear 140 mL/min (50-200) 11/09/19 05:39 Was VTE Risk Assessment Performed: Yes VTE Score: 7 VTE Risk Level: Moderate Risk - Prophylaxis VTE Prophylaxis Ordered?: Yes Types of VTE Prophylaxis: TEDS Knee High Location of Applied Device: Bilateral Lower Extremeties - VTE Diagnosis Confirmed Treatment or plan recommended: Continue Current Treatment
--- NOTE | 2019-11-09 09:43 | HMH.PHACONS ---
- Pharmacy Consult Date: 11/09/19 Time: 09:43 Referring provider: DR. AGUILA Reason for Consult:: VANCOMYCIN DOSING Allergies and ADEs:: Allergies Allergy/AdvReac Type Severity Reaction Status Date / Time rifampin [RIFAMPIN] Allergy Severe UNABLE TO Verified 11/08/19 12:45 BREATH tetanus and diphtheria Allergy Mild RED Verified 11/08/19 12:45 toxoids [TETANUS & DIPHTHERIA TOXOIDS] tuberculin, purified protein Allergy Unknown Verified 11/09/19 07:50 deriva allergy reaction Home Medications:: Home Medications Medication Instructions Recorded Confirmed Type Acetaminophen [Tylenol 500mg 500 mg PO NEEDED PRN 04/20/18 10/10/19 History tablet] pantoprazole 40 mg tablet,delayed 40 mg PO DAILY #90 tab 08/22/19 10/10/19 Rx release Atorvastatin Calcium [Lipitor 20mg 20 mg PO HS 09/25/19 10/10/19 History Tab] Citalopram Hydrobromide 20 mg PO DAILY 09/25/19 10/10/19 History [Citalopram HBr] Diclofenac Sodium [Voltaren 100gm 2 g TOPICAL QID PRN 09/25/19 10/10/19 History Topical Gel] Levothyroxine Sodium [Synthroid 100 mcg PO DAILY 09/25/19 10/10/19 History 100mcg (0.1mg) tablet] Losartan Potassium [Cozaar 25mg 25 mg PO HS 09/25/19 10/10/19 History Tablets] Tizanidine HCl 4 mg PO Q4HP PRN 09/25/19 10/10/19 History Topiramate 50 mg PO BID 09/25/19 10/10/19 History Trazodone HCl 100 mg PO HS 09/25/19 10/10/19 History Verapamil HCl [Calan SR 180mg 180 mg PO BID 09/25/19 10/10/19 History tablet] Warfarin Sodium 2.5 mg PO MOWEFR 09/25/19 10/10/19 History Warfarin Sodium [Coumadin 5mg 5 mg PO SUTUTHSA 09/25/19 10/10/19 History tablet] buPROPion HCL [Wellbutrin SR 75mg 75 mg PO BID 09/25/19 10/10/19 History Tablet] ondansetron HCl 4 mg tablet 4 mg PO Q8H PRN #20 tab 09/26/19 10/10/19 Rx pregabalin 75 mg capsule 75 mg PO BID #60 cap 10/01/19 10/10/19 Rx furosemide 40 mg tablet 20 mg PO DAILY #30 tab 10/17/19 Rx acetaminophen 300 mg-codeine 30 mg 1 tab PO BID PRN #20 tab 10/19/19 Rx tablet metformin 500 mg tablet See Rx Instructions .ROUTE 10/25/19 Rx .COMPLEX #180 tab Height: 1.65 m Weight: 73.085 kg Laboratory Results:: Laboratory Results - last 24 hr 11/08/19 10:35: Salicylates < 1.0 L 11/08/19 10:35: TSH 2.86, Free T4 Index 5.1 L, Thyroxine (T4) 10.4, T3 Uptake 49 H 11/08/19 12:29: Specimen Source Left radial, ABG pH 7.56 H*, ABG pCO2 25.2 L, ABG pO2 99.3, ABG HCO3 22.1, ABG Total CO2 22.8 L, ABG O2 Saturation 98, ABG Base Excess -0.2, Brown Test Acceptable 11/08/19 12:35: Urine Color Yellow, Urine Appearance Clear, Urine pH 6.0, Ur Specific [place] 1.015, Urine Protein Negative, Urine Glucose (UA) Negative, Urine Ketones Trace, Urine Blood Negative, Urine Nitrate Negative, Urine Bilirubin Negative, Urine Urobilinogen 1.0, Ur Leukocyte Esterase Negative, Urine RBC Occasional, Urine WBC 5-10, Ur Squamous Epith Cells 5-10, Urine Bacteria 2+, Hyaline Casts 3-5 11/08/19 12:35: WBC 8.7, RBC 3.17 L, Hgb 9.9 L, Hct 30.0 L, MCV 94.6, MCH 31.2, MCHC 32.9, RDW 16.5, Plt Count 219, MPV 12.4 H, Neut % (Auto) 65.7, Lymph % (Auto) 27.5, [place] % (Auto) 4.3, Eos % (Auto) 2.2, Baso % (Auto) 0.3, Neut # (Auto) 5.7, Lymph # (Auto) 2.4, [place] # (Auto) 0.4, Eos # (Auto) 0.2, Baso # (Auto) 0.0 11/08/19 12:35: Sodium 142, Potassium 2.3 L*, Chloride 104, Carbon Dioxide 26, Anion Gap 14.3, BUN 7, Creatinine 0.60, Estimated Creat Clear 105, Estimated GFR 102, Est GFR ( Amer) 124, Glucose 116 H, Calcium 8.0 L, Total Bilirubin 0.7, AST 22, ALT 21, Alkaline Phosphatase 110, Troponin I 0.03, Total Protein 6.5, Albumin 3.3 L, Globulin 3.2, Albumin/Globulin Ratio 1.0 L, TSH 2.99 11/08/19 12:35: Lactate 0.9 11/08/19 12:35: Plasma/Serum Alcohol < 10 11/08/19 12:35: Urine Opiates Screen Negative, Urine Methadone Screen Negative, Ur Barbituates Screen Negative, Ur Phencyclidine Scrn Negative, Ur Amphetamines Screen Negative, U Benzodiazepines Scrn Negative, Urine Cocaine Screen Nega
--- NOTE | 2019-11-09 11:44 | HMH.PHAINT ---
HOME MEDICATIONS RECONCILED FROM [facility] AND [facility] FILL LIST/HISTORY.
[2019-11-09 12:14] LABS: POC Glucose,Bedside 149 (70-110)
--- NOTE | 2019-11-09 12:50 | CA_ITS ---
APPROVED REPORT Bilateral Lower Extremity Venous Study for DVT. Pasting Machine Offbearer: Lashaun Maza RVT Indications Lower Extremity Edema: Bilateral swelling - hx of dvt Past History DVT : Vein Imaging CFV (R): compressive, spontaneous, phasic, augmentation FEM (R): compressive, spontaneous, phasic, augmentation POP (R): compressive, spontaneous, phasic, augmentation PTV (R): Compressible GSV (R): Compressible Peroneals (R):Compressible GAS (R): Compressible CFV (L): compressive, spontaneous, phasic, augmentation FEM (L): compressive, spontaneous, phasic, augmentation POP (L): compressive, spontaneous, phasic, augmentation PTV (L): Compressible GSV (L): Compressible Peroneals (L):Compressible GAS (L): Compressible Findings Study suggests no evidence of DVT seen in the bilateral lower extremities. Study suggests no evidence of SVT seen in the bilateral lower extremities. 4.4 cm cystic lesion seen right popliteal fossa, probable Lujan's cyst. Conclusion Study suggests no evidence of DVT seen in the bilateral lower extremities. Study suggests no evidence of SVT seen in the bilateral lower extremities. 4.4 cm cystic lesion seen right popliteal fossa, probable Lujan's cyst. Electronically signed by : Brown Mendoza MD 11/09/2019 17:34:24
--- NOTE | 2019-11-09 14:36 | HMH.HP ---
*Admission Date: 11/08/19 *Chief complaint: not feeling well *History of present illness: this pt presented to the ed -): pt presents to ed with c/o altered mental status. pt unable to provide any medical history at this time. Pt is confused. pt has on a holter monitor and says she sees dr iglesias 59-year-old female presenting to the emergency department by EMS with altered mental status. EMS says they were called to the house by the patient's mother. Mother said she had been more confused than normal over the last few days. Not eating or drinking much. When EMS arrived she was sitting on the front porch of her house, in the heat, felt warm to the touch. No obvious external signs of trauma. Patient is interactive, but pleasantly confused. She denies any current headache, vision changes, chest pain, abdominal pain. No numbness or weakness. No recent falls. She does not know the names of her medications, but denies any difficulty taking them appropriately. She says she does not know why she is here. Denies drug or alcohol use. n summary this is a 59-year-old female presenting to the emergency department with altered mental status. Patient is clinically stable on arrival. Protecting her airway. Conversational. Vital signs within normal limits. Initial temperature is 100 ?F. No significant hyperthermia or fever. Differential diagnoses are broad. Includes infectious etiology like urinary tract infection, meningitis encephalitis, pneumonia. Patient has a history of thyroid disorder, concern for hypothyroidism. Also concern for intoxication or using too much medication, like citalopram. Also concern for intracranial bleed or mass. Plan to obtain CBC, CMP, lipase, lactate, chest x-ray, EKG, ABG, noncontrast head CT, urinalysis, urine drug screen. Initial laboratory results remarkable for hypokalemia at 2.3. Patient given 2 runs of 10 mg IV potassium. Other laboratory results are generally unremarkable. No urinary tract infection. No pneumonia. No intracranial abnormalities on head CT. Patient is still confused, encephalopathic. She is able to answer some questions appropriately. Lumbar puncture performed. Fluid studies sent for cell count, culture, Gram stain. Antibiotics started, including vancomycin, Rocephin, swollen, acyclovir. And 8 mg HM[facility] History I have reviewed the patient's past medical history: Yes Medical History: Reports:: Anxiety, Chronic Obstructive Pulmonary Disease (COPD), Cerebrovascular Accident, Depression, Diabetes Mellitus Type 1, Diabetes Mellitus Type 2, Hyperlipidemia, Hypertension, Lung Disease, Migraine, MRSA (x2), Renal Disease Denies:: Internal Pacemaker, Seizures *Have you ever received a pneumonia vaccine?: Yes *Have you received a flu vaccine this season?: No Other Medical History: Reports: Arthritis, Hypothyroidism, Thyroid Disease, Other Laterality Cases: Left: Arthroscopy Knee Other Surgeries: Yes: Appendectomy, Colonoscopy, Tubal Ligation. No: Pacemaker Amputation: No Fractures: Yes - *Social History Smoking Status: Current every day smoker Tobacco Type: cigarettes # Packs/Day (cigarettes): 1 Alcohol Intake: never Substance Use Type: former substance user, opiates, painkillers *Occupational Status:: other Housing: apartment *Travel in the last 8 weeks: None - Psychiatric History Pschychiatric History:: Reports:: Anxiety, Depression Family Hx:: Cancer Review of Systems - Review of Systems Review of systems:: pertinent systems reviewed and negative unless documented below - Constitutional Denies fever(s) - Eyes Denies change in vision - ENT Denies dizziness - *Cardiovascular Denies chest pain at rest - *Respiratory Denies cough - *Gastrointestinal Denies abdominal pain - *Genitourinary Denies blood in urine - *Musculoskeletal Denies joint pain - Integumentary/Breasts Denies rash - *Neurologic Denies confusion, Denies frequent falls, Denies headache(s), Denies n
--- NOTE | 2019-11-09 17:49 | PC.NURSE ---
pt has been in my care since 1400 today. pt has done well. she tolerated the last bag of potassium well with no complaints. pt up to chair with call light within reach. vss. will cont. to monitor.
[2019-11-09 18:40] LABS: POC Glucose,Bedside 185 (70-110)
--- NOTE | 2019-11-09 19:10 | PC.NURSE ---
report given to steve
[2019-11-10] VITALS (10 sets, daily range): BP systolic 108–138; BP diastolic 58–73; PULSE 60–96; RESP 16–18; TEMP 36.6–37.2; O2SAT 94–98; BMI 29.0
[2019-11-10 00:29] LABS: POC Glucose,Bedside 148 (70-110)
--- NOTE | 2019-11-10 03:26 | PC.NURSE ---
Late Entry: Pt is A&Ox4 and has ambulated to the BR with walker and staff x1 SBA and tolerated well. Pt c/o chronic pain and MD Gotti added pain medication to her MAR, however on reassessment of pt she was found to be asleep and when awake denied any further pain. Lungs CTA. ABD is soft, non-tender, with active BS. Last BM was at the beginning on the shift. Pt denies any N/V/D. Kathleen cath in place draining clear ylw urine to gravity. Of note, pt was found to be smoking in her room at 2200. Cigarettes and 2 lighters were removed from pt's processions and locked in med supervisor telephone answering service pt's room. Pt educated on smoking policy and safety. Pt stated her understanding. Pt helped to the bed and bed alarm set. VSS, call light within reach, will continue to monitor.
--- NOTE | 2019-11-10 04:59 | INFXCTL.NOTE ---
Pt A&OX4. at beginnign of shift pt was found to be smoking in room, cigarette was disposed pt recieved education about smoking policy and cigarettes and lighters were lock in med drawer. Pt has ambulated to BR with [place] assistance. F/c in place draining yellow urine to gravity. NSR with inverted T wave on tele. pt has rested quietly majority of shift.
[2019-11-10 06:21] LABS: POC Glucose,Bedside 120 (70-110)
--- NOTE | 2019-11-10 09:18 | HMH.ACPN2 ---
Internal Medicine - PN: Subj *Date: 11/11/19 *Time: 07:52 Interval history: doing better and oob - Exam Vital signs and Labs for Last 24 Hours: Temp Pulse Resp BP Pulse Ox 98.7 F 92 H 16 138/71 97 11/10/19 08:00 11/10/19 08:00 11/10/19 08:00 11/10/19 08:00 11/10/19 08:00 Laboratory Results - last 24 hr 11/09/19 11:53: POC Glucose 149 H 11/09/19 18:31: POC Glucose 185 H 11/10/19 00:04: POC Glucose 148 H 11/10/19 05:38: POC Glucose 120 H I & O for Last 24 hours: Intake & Output 11/07/19 11/08/19 11/09/19 11/10/19 11:59 11:59 11:59 11:59 Intake Total 2632 / 2632 5254 / 5254 Output Total 1400 / 1400 1350 / 1350 Balance 1232 / 1232 3904 / 3904 Weight 161 lb 2 oz 174 lb 1 oz Microbiology Reports for the Last 24 Hours: Microbiology 11/08/19 14:09 Cerebral Spinal Fluid Gram Stain - Final 11/08/19 14:09 Cerebral Spinal Fluid CSF Culture - Preliminary NO GROWTH AFTER 24 HOURS 11/08/19 12:35 Urine,Clean Catch Urine Culture - Preliminary NO GROWTH AFTER 24 HOURS 11/08/19 12:52 Throat Group A Streptococcus Screen (LAMBERTO) - Final Negative for Group A Streptococcus. - Constitutional no acute distress - *Routine HEENT Exam Head: Present: normocephalic Eye: Present: EOMI. Absent: nystagmus ENT: Present: mucous membranes dry - *Routine Neck Exam Present: supple - *Routine Respiratory Exam Absent: respiratory distress - *Routine Cardiovascular Exam Present: RRR - *Routine Abdominal Exam Present: soft - *Routine Extremities Exam Absent: calf tenderness - *Routine Skin Exam Present: intact - *Routine Neurological Exam Present: alert - Routine Psychiatric Exam Present: normal affect
--- NOTE | 2019-11-10 11:01 | HMH.PHAINT ---
PATIENT WILL BE STOPPING WARFARIN PER DR. AGUILA/CARDIOLOGY.
[2019-11-10 11:45] LABS: POC Glucose,Bedside 128 (70-110)
[2019-11-10 17:30] LABS: POC Glucose,Bedside 121 (70-110)
--- NOTE | 2019-11-10 17:54 | PC.NURSE ---
Pt has been pleasant and cooperative this shift. A&O X4. No complaints of CP/SOA. Pt is on room air with sats. >95%. Lungs CTA. No edema noted. Pt has complained of pain X2 this shift and has been medicated with [place] per JUN with favorable results. F/C was DC'd this AM and pt is voiding without issue. No BM this shift. Pt ambulates to the bathroom independently. Pt has sat up in the chair the majority of the shift and has slept intermittently. 22 G peripheral IV in the RT wrist was DC'd today due to infiltration. 20 G peripheral IV in the LT hand is patent and infusing NS @ 150 ML/HR. FSBS results have been 128 and 121. VSS. Call light within reach. Will continue to monitor.
[2019-11-10 22:02] LABS: Vancomycin,Trough 21.5 ug/mL (5.0-10.0)
[2019-11-10 23:42] LABS: POC Glucose,Bedside 126 (70-110)
[2019-11-11] VITALS (8 sets, daily range): BP systolic 122–133; BP diastolic 68–71; PULSE 57–73; RESP 15–18; TEMP 36.7–37; O2SAT 95–98; BMI 30.4
--- NOTE | 2019-11-11 04:18 | PC.NURSE ---
Sima5Saima Ward called this RN in regards to vanc trough of 21.5. Orders to hold 2200 dose and restart in the morning at same dosing.
--- NOTE | 2019-11-11 04:36 | PC.NURSE ---
Pt slept in short intervals this shift. C/o generalized back pain treated per JUN w/ desired results. Pt has remained A&Ox4. No other complaints reported.
[2019-11-11 06:33] LABS: POC Glucose,Bedside 101 (70-110)
[2019-11-11 08:35] LABS: Basophils % 0.4 % (0.1-2.0); Eosinophils # 0.1 K/mm3 (0.0-0.4); Eosinophils % 2.5 % (0.1-12.0); Hematocrit 26.4 % (37.0-47.0); Hemoglobin 8.6 g/dL (12.2-16.2); Lymphocytes # 2.3 K/mm3 (0.7-4.5); Lymphocytes % 38.5 % (10-50); Mean Corpuscular HGB Conc 32.7 g/dL (31.8-35.4); Mean Corpuscular Volume 94.9 fl (81-99); Mean Platelet Volume 11.8 fl (7.4-10.4); Monocytes # 0.3 K/mm3 (0.1-1.0); Monocytes % 5.9 % (1.7-9.3); Neutrophils # 3.1 K/mm3 (1.8-7.8); Neutrophils % 52.8 % (37.0-80.0); Platelet Count 184 K/mm3 (142-424); Red Blood Count 2.78 M/mm3 (4.20-5.40); Red Cell Distribution Width 16.4 % (11.5-17.5); White Blood Count 5.9 K/mm3 (4.8-10.8)
[2019-11-11 08:40] LABS: Chloride 113 mmol/L (98-107)
[2019-11-11 08:41] LABS: Sodium 141 mmol/L (136-145)
[2019-11-11 08:43] LABS: Blood Urea Nitrogen 2 mg/dl (7-17); Creatinine Clearance Estimated 132 mL/min (50-200); Estimated Glomerular Filt Rate 102 ml/min (>60); GFR (African American) 124 ML/MIN (>60)
[2019-11-11 08:44] LABS: Anion Gap 7.8 mEq/L (5-15); Carbon Dioxide 23 mmol/L (22.0-30.0); Glucose 116 mg/dl (74-100)
[2019-11-11 08:45] LABS: Calcium 6.7 mg/dl (8.4-10.2)
[2019-11-11 08:46] LABS: Potassium 2.8 mmoL/L (3.5-5.1)
--- NOTE | 2019-11-11 09:43 | HMH.ACPN2 ---
Internal Medicine - PN: Subj *Date: 11/12/19 *Time: 07:15 Interval history: doing better will stop abx Exam Vital signs and Labs for Last 24 Hours: Temp Pulse Resp BP Pulse Ox 98.5 F 73 16 132/68 95 11/11/19 08:00 11/11/19 08:07 11/11/19 08:07 11/11/19 08:00 11/11/19 08:07 Laboratory Results - last 24 hr 11/10/19 11:37: POC Glucose 128 H 11/10/19 17:18: POC Glucose 121 H 11/10/19 21:25: Vancomycin Trough 21.5 H 11/10/19 23:34: POC Glucose 126 H 11/11/19 06:22: POC Glucose 101 11/11/19 07:58: WBC 5.9, RBC 2.78 L, Hgb 8.6 L, Hct 26.4 L, MCV 94.9, MCH 31.0, MCHC 32.7, RDW 16.4, Plt Count 184 D, MPV 11.8 H, Neut % (Auto) 52.8, Lymph % (Auto) 38.5, [place] % (Auto) 5.9, Eos % (Auto) 2.5, Baso % (Auto) 0.4, Neut # (Auto) 3.1, Lymph # (Auto) 2.3, [place] # (Auto) 0.3, Eos # (Auto) 0.1, Baso # (Auto) 0.0 11/11/19 07:58: Sodium 141, Potassium 2.8 L*, Chloride 113 H, Carbon Dioxide 23, Anion Gap 7.8, BUN 2 L D, Creatinine 0.60, Estimated Creat Clear 132, Estimated GFR 102, Est GFR ( Amer) 124, Glucose 116 H, Calcium 6.7 L I & O for Last 24 hours: Intake & Output 11/08/19 11/09/19 11/10/19 11/11/19 11:59 11:59 11:59 11:59 Intake Total 2632 / 2632 5254 / 5254 5246 / 5246 Output Total 1400 / 1400 1550 / 1550 Balance 1232 / 1232 3704 / 3704 5246 / 5246 Weight 161 lb 2 oz 174 lb 1 oz 183 lb Microbiology Reports for the Last 24 Hours: Microbiology 11/08/19 14:09 Cerebral Spinal Fluid Gram Stain - Final 11/08/19 14:09 Cerebral Spinal Fluid CSF Culture - Preliminary NO GROWTH AFTER 48 HOURS 11/08/19 12:35 Urine,Clean Catch Urine Culture - Final NO GROWTH AFTER 48 HOURS 11/08/19 12:41 Blood Blood Culture - Preliminary NO GROWTH AFTER 48 HOURS 11/08/19 12:41 Blood Blood Culture - Preliminary NO GROWTH AFTER 48 HOURS - Constitutional no acute distress - *Routine HEENT Exam Head: Present: normocephalic Eye: Present: EOMI, PERRL ENT: Present: mucous membranes dry - *Routine Neck Exam Present: supple - *Routine Respiratory Exam Present: CTA bilaterally - *Routine Cardiovascular Exam Present: RRR - *Routine Abdominal Exam Present: soft - *Routine Extremities Exam Absent: calf tenderness - *Routine Skin Exam Present: intact - *Routine Neurological Exam Present: alert, CN II-XII intact - Routine Psychiatric Exam Present: normal affect
--- NOTE | 2019-11-11 09:59 | HMH.PHACONS ---
- Pharmacy Consult Date: 11/11/19 Time: 09:59 Referring provider: DR. AGUILA Reason for Consult:: VANCOMYCIN TROUGH LEVEL Allergies and ADEs:: Allergies Allergy/AdvReac Type Severity Reaction Status Date / Time rifampin [RIFAMPIN] Allergy Severe UNABLE TO Verified 11/08/19 12:45 BREATH tetanus and diphtheria Allergy Mild RED Verified 11/08/19 12:45 toxoids [TETANUS & DIPHTHERIA TOXOIDS] tuberculin, purified protein Allergy Unknown Verified 11/09/19 07:50 deriva allergy reaction Home Medications:: Home Medications Medication Instructions Recorded Confirmed Type Acetaminophen [Tylenol 500mg 500 mg PO NEEDED PRN 04/20/18 11/09/19 History tablet] pantoprazole 40 mg tablet,delayed 40 mg PO DAILY #90 tab 08/22/19 11/09/19 Rx release Atorvastatin Calcium [Lipitor 20mg 20 mg PO HS 09/25/19 11/09/19 History Tab] Citalopram Hydrobromide 20 mg PO DAILY 09/25/19 11/09/19 History [Citalopram HBr] Diclofenac Sodium [Voltaren 100gm 2 g TOPICAL QID PRN 09/25/19 11/09/19 History Topical Gel] Levothyroxine Sodium [Synthroid 100 mcg PO DAILY 09/25/19 11/09/19 History 100mcg (0.1mg) tablet] Losartan Potassium [Cozaar 25mg 25 mg PO HS 09/25/19 11/09/19 History Tablets] Tizanidine HCl 4 mg PO Q6HP PRN 09/25/19 11/09/19 History Topiramate 50 mg PO BID 09/25/19 11/09/19 History Trazodone HCl 100 mg PO HS 09/25/19 11/09/19 History Verapamil HCl [Calan SR 180mg 180 mg PO BID 09/25/19 11/09/19 History tablet] buPROPion HCL [Wellbutrin SR 75mg 75 mg PO BID 09/25/19 11/09/19 History Tablet] ondansetron HCl 4 mg tablet 4 mg PO Q8H PRN #20 tab 09/26/19 11/09/19 Rx pregabalin 75 mg capsule 75 mg PO BID #60 cap 10/01/19 11/09/19 Rx Furosemide [Furosemide 40MG tAB] 20 mg PO DAILY 11/09/19 11/09/19 History Metformin HCl [Glucophage] 500 mg PO BID 11/09/19 11/09/19 History Warfarin Sodium [Coumadin 2.5mg 2.5 mg PO DAILY 11/09/19 11/09/19 History tablet] Height: 1.65 m Weight: 83.007 kg Laboratory Results:: Laboratory Results - last 24 hr 11/10/19 11:37: POC Glucose 128 H 11/10/19 17:18: POC Glucose 121 H 11/10/19 21:25: Vancomycin Trough 21.5 H 11/10/19 23:34: POC Glucose 126 H 11/11/19 06:22: POC Glucose 101 11/11/19 07:58: WBC 5.9, RBC 2.78 L, Hgb 8.6 L, Hct 26.4 L, MCV 94.9, MCH 31.0, MCHC 32.7, RDW 16.4, Plt Count 184 D, MPV 11.8 H, Neut % (Auto) 52.8, Lymph % (Auto) 38.5, [place] % (Auto) 5.9, Eos % (Auto) 2.5, Baso % (Auto) 0.4, Neut # (Auto) 3.1, Lymph # (Auto) 2.3, [place] # (Auto) 0.3, Eos # (Auto) 0.1, Baso # (Auto) 0.0 11/11/19 07:58: Sodium 141, Potassium 2.8 L*, Chloride 113 H, Carbon Dioxide 23, Anion Gap 7.8, BUN 2 L D, Creatinine 0.60, Estimated Creat Clear 132, Estimated GFR 102, Est GFR ( Amer) 124, Glucose 116 H, Calcium 6.7 L Medical History: Reports:: Anxiety, Chronic Obstructive Pulmonary Disease (COPD), Cerebrovascular Accident, Depression, Diabetes Mellitus Type 1, Diabetes Mellitus Type 2, Hyperlipidemia, Hypertension, Lung Disease, Migraine, MRSA (x2), Renal Disease Denies:: Internal Pacemaker, Seizures Assessment and Plan - Assessment and plan all Dx Assessment and Plan for all problems:: BASED ON VANCOMYCIN TROUGH LEVEL AND PATIENT FACTORS, RECOMMEND HOLDING DOSE LAST NIGHT AND CHANGING VANCOMYCIN TO 1500 MG IV Q18H. ALL ANTIBIOTICS WILL BE STOPPED THIS MORNING PER DR. AGUILA.
[2019-11-11 12:22] LABS: POC Glucose,Bedside 94 (70-110)
--- NOTE | 2019-11-11 17:34 | PC.NURSE ---
Pt has been pleasant and cooperative this shift. A&O X4. No complaints of CP/SOA. Pt is on room air with sats. >95%. Lungs CTA. No edema noted. Pt has complained of pain in her lower back X2 this shift and has been medicated with [place] per MAR with favorable results. Pt ambulates to the bathroom independently and voids without issue. Pt reports large, brown, soft formed BM X1 this shift. Pt has stayed in bed the majority of the shift and has slept intermittently. 20 G peripheral IV in the RT forearm is patent and infusing NS @ 150 ML/HR. FSBS results have been 94 and 94. VSS. Call light within reach. Will continue to monitor.
[2019-11-11 17:37] LABS: POC Glucose,Bedside 94 (70-110)
[2019-11-12 04:00] VITALS: BP 119/77; PULSE 69; RESP 16; TEMP 36.7; O2SAT 96
[2019-11-12 05:00] VITALS: BMI 30.4
[2019-11-12 05:53] LABS: POC Glucose,Bedside 126 (70-110)
--- NOTE | 2019-11-12 06:01 | PC.NURSE ---
No acute changes. No complaints reported to staff. Pt ambulating independently to BR and voiding w/o issues. BLE elevated d/t edema.
[2019-11-12 06:35] LABS: Chloride 114 mmol/L (98-107); Potassium 3.9 mmoL/L (3.5-5.1); Sodium 140 mmol/L (136-145)
[2019-11-12 06:38] LABS: Anion Gap 9.9 mEq/L (5-15); Blood Urea Nitrogen 2 mg/dl (7-17); Calcium 7.3 mg/dl (8.4-10.2); Carbon Dioxide 20 mmol/L (22.0-30.0); Creatinine Clearance Estimated 159 mL/min (50-200); Estimated Glomerular Filt Rate 126 ml/min (>60); GFR (African American) 153 ML/MIN (>60); Glucose 113 mg/dl (74-100); Magnesium 1.2 mg/dl (1.6-2.3)
[2019-11-12 08:00] VITALS: BP 138/78; PULSE 88; RESP 16; TEMP 36.9; O2SAT 98
--- NOTE | 2019-11-12 09:54 | HMH.DCSUM ---
General - General Admission date:: 11/08/19 Discharge date: 11/12/19 HPI HPI: this pt presented to the ed -): pt presents to ed with c/o altered mental status. pt unable to provide any medical history at this time. Pt is confused. pt has on a holter monitor and says she sees dr iglesias 59-year-old female presenting to the emergency department by EMS with altered mental status. EMS says they were called to the house by the patient's mother. Mother said she had been more confused than normal over the last few days. Not eating or drinking much. When EMS arrived she was sitting on the front porch of her house, in the heat, felt warm to the touch. No obvious external signs of trauma. Patient is interactive, but pleasantly confused. She denies any current headache, vision changes, chest pain, abdominal pain. No numbness or weakness. No recent falls. She does not know the names of her medications, but denies any difficulty taking them appropriately. She says she does not know why she is here. Denies drug or alcohol use. n summary this is a 59-year-old female presenting to the emergency department with altered mental status. Patient is clinically stable on arrival. Protecting her airway. Conversational. Vital signs within normal limits. Initial temperature is 100 ?F. No significant hyperthermia or fever. Differential diagnoses are broad. Includes infectious etiology like urinary tract infection, meningitis encephalitis, pneumonia. Patient has a history of thyroid disorder, concern for hypothyroidism. Also concern for intoxication or using too much medication, like citalopram. Also concern for intracranial bleed or mass. Plan to obtain CBC, CMP, lipase, lactate, chest x-ray, EKG, ABG, noncontrast head CT, urinalysis, urine drug screen. Initial laboratory results remarkable for hypokalemia at 2.3. Patient given 2 runs of 10 mg IV potassium. Other laboratory results are generally unremarkable. No urinary tract infection. No pneumonia. No intracranial abnormalities on head CT. Patient is still confused, encephalopathic. She is able to answer some questions appropriately. Lumbar puncture performed. Fluid studies sent for cell count, culture, Gram stain. Antibiotics started, including vancomycin, Rocephin, swollen, acyclovir. And 8 mg Hospital Course Hospital Course: pt with slow improvement with ivf and remained afebrile and cultures have been neg - she has dec k and ca and mg but has zohreh diet and will follow as op - she has pending gi eval - will monitor weight asop- Objective Vital signs: Temp Pulse Resp BP Pulse Ox 98.4 F 88 16 138/78 98 11/12/19 08:00 11/12/19 08:00 11/12/19 08:00 11/12/19 08:00 11/12/19 08:00 no acute distress - *Routine HEENT Exam Eye: Present: EOMI, PERRL. Absent: conjunctival icterus ENT: Present: mucous membranes dry - *Routine Neck Exam Present: supple. Absent: JVD - *Routine Respiratory Exam Present: CTA bilaterally - *Routine Cardiovascular Exam Present: RRR - *Routine Abdominal Exam Present: soft - *Routine Extremities Exam Present: full ROM - *Routine Skin Exam Present: intact - *Routine Neurological Exam Present: alert, oriented X3, CN II-XII intact - Routine Psychiatric Exam Present: normal affect Results Labs on day of discharge: Labs from last 24 hours 11/12/19 11/12/19 11/11/19 05:55 05:31 17:29 Sodium 140 Potassium 3.9 D Chloride 114 H Carbon Dioxide 20 L Anion Gap 9.9 BUN 2 L Creatinine 0.50 L Estimated Creat Clear 159 Estimated GFR 126 Est GFR ( Amer) 153 D Glucose 113 H POC Glucose 126 H 94 Calcium 7.3 L Magnesium 1.2 L 11/11/19 12:15 Sodium Potassium Chloride Carbon Dioxide Anion Gap BUN Creatinine Estimated Creat Clear Estimated GFR Est GFR ( Amer) Glucose POC Glucose 94 Calcium Magnesium Preliminary micro resul
--- NOTE | 2019-11-12 10:59 | HMH.PHAINT ---
DISCHARGE COUNSELING COMPLETED.
[2019-11-12 11:58] LABS: POC Glucose,Bedside 117 (70-110)
[2019-11-13 10:16] LABS: HSV-1 DNA Negative (Negative)
[2019-11-13 10:22] LABS: HSV-2 DNA Negative (Negative)
== END 2019-11-12 12:40 | disposition home or self-care (01) ==
LOC: ER 16:31 → 2ND 17:28
PROVIDERS: Family Medicine; Admitting Provider Internal Medicine Adolescent Medicine; Emergency Provider Emergency Medicine; PCP Emergency Medicine; Visit Provider Emergency Medicine
DX: E87.6 Hypokalemia (principal); E83.42 Hypomagnesemia; E83.51 Hypocalcemia; Z72.0 Tobacco use; J44.9 Chronic obstructive pulmonary disease, unspecified; E03.9 Hypothyroidism, unspecified; I10 Essential (primary) hypertension; E11.9 Type 2 diabetes mellitus without complications; Z88.7 Allergy status to serum and vaccine; Z88.8 Allergy status to other drugs, medicaments and biological substances; Z79.84 Long term (current) use of oral hypoglycemic drugs; D64.9 Anemia, unspecified; Z79.899 Other long term (current) drug therapy; Z86.718 Personal history of other venous thrombosis and embolism; R60.0 Localized edema
CPT/HCPCS: 36415; 62270; 70450; 71045; 80048; 80053; 80202; 80305; 80329; 81001; 82803; 82962; 83605; 83735; 84100; 84155; 84436; 84439; 84443; 84479; 84484; 85025; 85610; 87040; 87070; 87086; 87205; 87275; 87276; 87430; 87529; 87899; 89051; 93005; 93970; 96365; 96367; 96375; 99285; G0378; J0290; J3370

== ENCOUNTER → 2019-12-07 14:31 | Outpatient (CLI) | payer MEDICARE, SELFPAY ==
[2019-12-07 14:44] LABS: Basophils # 0.1 K/mm3 (0-0.2); Basophils % 0.6 % (0.1-2.0); Eosinophils # 0.1 K/mm3 (0.0-0.4); Eosinophils % 1.6 % (0.1-12.0); Hematocrit 33.7 % (37.0-47.0); Hemoglobin 10.6 g/dL (12.2-16.2); Lymphocytes # 2.4 K/mm3 (0.7-4.5); Mean Corpuscular HGB Conc 31.5 g/dL (31.8-35.4); Mean Corpuscular Hemoglobin 30.7 pg (27.0-31.2); Mean Corpuscular Volume 97.5 fl (81-99); Mean Platelet Volume 10.4 fl (7.4-10.4); Monocytes # 0.4 K/mm3 (0.1-1.0); Monocytes % 4.7 % (1.7-9.3); Neutrophils # 5.6 K/mm3 (1.8-7.8); Neutrophils % 65.1 % (37.0-80.0); Platelet Count 315 K/mm3 (142-424); Red Blood Count 3.46 M/mm3 (4.20-5.40); Red Cell Distribution Width 17.4 % (11.5-17.5); White Blood Count 8.6 K/mm3 (4.8-10.8)
[2019-12-07 18:09] LABS: Chloride 105 mmol/L (98-107)
[2019-12-07 18:10] LABS: Sodium 139 mmol/L (136-145)
[2019-12-07 18:12] LABS: Alanine Aminotransferase 10 U/L (12-78); Aspartate Amino Transferase 18 U/L (14-36); Blood Urea Nitrogen 10 mg/dl (7-17); Estimated Glomerular Filt Rate 64 ml/min (>60); GFR (African American) 78 ML/MIN (>60)
[2019-12-07 18:13] LABS: Alkaline Phosphatase 99 U/L (38-126); Bilirubin,Total 0.4 mg/dl (0.2-1.3); Calcium 8.8 mg/dl (8.4-10.2); Carbon Dioxide 23 mmol/L (22.0-30.0); Globulin 2.9 g/dL (1.3-3.2); Glucose 117 mg/dl (74-100); Total Protein,Serum 5.9 g/dl (6.3-8.2)
[2019-12-07 18:41] LABS: Magnesium 0.9 mg/dl (1.6-2.3)
== END ==
PROVIDERS: Visit Provider Emergency Medicine
DX: R41.0 Disorientation, unspecified (principal)
CPT/HCPCS: 80053; 83735; 85025

== ENCOUNTER 2019-12-13 11:37 | Day surgery (SDC) | payer MEDICARE, SELFPAY ==
[2019-12-13 11:42] VITALS: BMI 24.6
--- NOTE | 2019-12-13 11:53 | CA_ITS ---
APPROVED REPORT EXAM: Comprehensive 2D, Doppler, and color-flow Echocardiogram Casket Trimmer: Brandi Sarabia CRT Ht: 5 ft 8 in Wt: 162lbs BSA: 1.87 BP: 110/62 mmHg Indications: PFO, CVA Procedure After obtaining informed consent, patient underwent transesophageal echo in the [facility]. Type of Sedation : Conscious Sedation Sedation was administered by Genaro MoyerNIndio. Transesophageal probe was inserted and advanced into esophagus without difficulty by Dr. Taisha Monge. The CAMILA was performed without complications. Throughout the procedure, the blood pressure, pulse oximetry, cardiac rhythm, and rate were monitored. The patient tolerated the procedure without adverse effects. Recovery from conscious sedation was uneventful and vital signs were stable. Left Ventricle Left ventricle is normal size, preserved left ventricular systolic function, visually estimated ejection fraction 55% with no regional wall motion abnormality in the obtained views. Right Ventricle Right ventricle is normal size and contractility. Atria Left atrium is mildly enlarged, left atrial appendage is free of thrombus, there is good appendage flow by spectral Doppler. Right atrium is normal size. Intra-atrial septum is intact, there is no flow across the interatrial septum, contrast reveals 25 intracardiac shunt. Aortic Valve Aortic valve is minimally thickened and fibrosed, there is no aortic stenosis or aortic insufficiency. Mitral Valve Mitral valve is grossly normal, there is mild mitral regurgitation. Tricuspid Valve Tricuspid valve grossly normal, there is mild tricuspid regurgitation. Pulmonic Valve Pulmonic valve is grossly normal. Great Vessels Aortic root is normal size. Ascending aorta arch and descending thoracic aorta there is no aneurysm or dissection, non-mobile atheromatous plaque seen in the descending thoracic aorta. Pericardium No significant pericardial effusion noted. Conclusion 1. Normal left ventricular size, preserved left ventricular systolic function, visually estimated ejection fraction 55% with no regional wall motion abnormality. 2. No evidence of atrial septal defect, PFO or intracardiac shunt. 3. No significant pericardial effusion noted. 4. Other ancillary findings as described above Electronically signed by : Vini Robin, 12/13/2019 13:41:46
[2019-12-13 12:05] VITALS: BP 125/77; PULSE 79; RESP 16; TEMP 36.8; O2SAT 97
[2019-12-13 12:09] VITALS: PULSE 93
[2019-12-13 12:17] LABS: Basophils # 0.1 K/mm3 (0-0.2); Basophils % 0.5 % (0.1-2.0); Eosinophils # 0.1 K/mm3 (0.0-0.4); Hematocrit 32.5 % (37.0-47.0); Hemoglobin 10.7 g/dL (12.2-16.2); Lymphocytes # 2.2 K/mm3 (0.7-4.5); Lymphocytes % 19.4 % (10-50); Mean Corpuscular HGB Conc 32.9 g/dL (31.8-35.4); Mean Corpuscular Hemoglobin 31.3 pg (27.0-31.2); Mean Platelet Volume 9.2 fl (7.4-10.4); Monocytes # 0.4 K/mm3 (0.1-1.0); Monocytes % 3.7 % (1.7-9.3); Neutrophils # 8.5 K/mm3 (1.8-7.8); Neutrophils % 75.4 % (37.0-80.0); Platelet Count 278 K/mm3 (142-424); Red Blood Count 3.42 M/mm3 (4.20-5.40); Red Cell Distribution Width 17.1 % (11.5-17.5); White Blood Count 11.3 K/mm3 (4.8-10.8)
[2019-12-13 12:45] LABS: Coronavirus 19 IgG Antibody Negative (Negative); Coronavirus 19 IgM Antibody Negative (Negative)
[2019-12-13 13:15] VITALS: BP 127/78; PULSE 70; RESP 18; O2SAT 96
[2019-12-13 13:30] VITALS: BP 131/81; PULSE 76; RESP 18; O2SAT 95
--- NOTE | 2019-12-13 13:40 | P.PN_ITS ---
[facility] Anesthesia Checklist - Patient Identification Patient Identification: Arm Band, Verbal (Name & ) - Structural Data Admitted From: Home Planned Operative Procedure/s: CAMILA Consent for Planned Operative Procedure(s) Verified: Yes Verified Documents: Surgical Consent, History and Physical - NPO Status Verified Time NPO: 00:00 - Chart Verification Results Verified: CBC - Additional verifications Anesthesia Reactions: No - Airway Assessment C-Spine Mobility Assessed: Yes TMJ Mobility Assessed: Yes Dentition: Edentulous - Neurological Assessment Level of Consciousness: Awake, Alert, Appropriate, Follows Commands Hx Seizures: No Numbness or tingling in extremities: No - Anesthesia Plan Anesthesia Risk discussed: Yes Anesthesia Plan: Verified ASA Class: III Anesthesia Type: MAC [facility] History I have reviewed the patient's past medical history: Yes Medical History: Reports:: Anxiety, Chronic Obstructive Pulmonary Disease (COMPLIANCE REPRESENTATIVE D), Cerebrovascular Accident, Deep Vein Thrombosis, Depression, Diabetes Mellitus Type 1, Diabetes Mellitus Type 2, Hyperlipidemia, Hypertension, Lung Disease, Migraine, MRSA, Renal Disease Denies:: Internal Pacemaker, Seizures *Have you ever received a pneumonia vaccine?: Yes *Have you received a flu vaccine this season?: Yes Other Medical History: Reports: Anemia, Arthritis, Hypothyroidism, Thyroid Disease, Other Anesthesia experience/problems:: None Laterality Cases: Left: Arthroscopy Knee Other Surgeries: Yes: Appendectomy, Colonoscopy, Tubal Ligation. No: Pacemaker Amputation: No Fractures: Yes - *Social History Last grade of school completed: Advanced degree Smoking Status: Current every day smoker Tobacco Type: cigarettes # Packs/Day (cigarettes): 1 Alcohol Intake: never Substance Use Type: former substance user, opiates, painkillers *Occupational Status:: retired Housing: house Household Members: other *Travel in the last 8 weeks: None - Psychiatric History Pschychiatric History:: Reports:: Anxiety, Depression Family Hx:: Cancer
[2019-12-13 13:45] VITALS: BP 128/77; PULSE 67; RESP 16; O2SAT 98
[2019-12-13 14:00] VITALS: BP 135/77; PULSE 71; RESP 18; O2SAT 98
--- NOTE | 2019-12-13 14:32 | SUR.PHASEII ---
PT DOING WELL. NO DISTRESS NOTED. JUST SPOKE W/ MD, UNDERSTANDS ALL D/C INSTRUCTIONS. STABLE UPON D/C PER AMBULATION W/ HOSPITAL STAFF.
== END 2019-12-13 14:32 | disposition home or self-care (01) ==
LOC: CATHLAB 11:39
PROVIDERS: PCP Emergency Medicine; Visit Provider Internal Medicine Cardiovascular Disease
DX: E78.5 Hyperlipidemia, unspecified (principal); I10 Essential (primary) hypertension; I27.20 Pulmonary hypertension, unspecified; R55 Syncope and collapse; Z72.0 Tobacco use; Z79.01 Long term (current) use of anticoagulants; Z86.718 Personal history of other venous thrombosis and embolism; E03.9 Hypothyroidism, unspecified
CPT/HCPCS: 85025; 86328; 93312

== ENCOUNTER → 2020-01-04 14:11 | Outpatient (CLI) | payer MEDICARE, SELFPAY ==
--- NOTE | 2020-01-04 14:11 | CT_ITS ---
PROCEDURE: CT LUNG SCREENING CLINICAL INDICATION: tobacco use current smoker 40 pack year smoking history copd chest wo, 09/22/14 COMPARISON: CT CHWO CT CHEST W/O CONTRAST from 09/22/[address] THORACIC SPINE WO/W CON from 09/25/2019 TECHNIQUE: The exam was performed on a [employer] Speed [address] scanner using 2.90 mGy CTDI. A low dose helical CT CHEST was performed on a multi-detector scanner. All CT scans at the facility use one or more dose reduction, viz: automated exposure control, ma/kV adjustment per patient size (including targeted exams where dose is matched to indication, i.e. head), or iterative reconstruction technique. The LDCT was performed in a facility that meets the criteria for the screening program. Data regarding this exam was submitted to ACR which is an approved registry. The order for this exam indicates that it came as a result of a lung cancer screening counseling shard decision-making visit that included all the elements required of such a visit including smoking cessation. The radiologist interpreting this exam meets the CMS criteria for the LDCT lung cancer screening program. The exam is reported using the Lung-RADS classification scale and reported to the ACR registry. NOTE: This study was performed for the specific purposes of lung cancer screening and is not an alternative to diagnostic chest CT. RADIATION DOSE: CTDI vol(CT dose Index-volume) = 2.90mG DLP (Dose Length Product) = 106.81 mGcm FINDINGS: COPD. Scattered areas of atelectatic/fibrotic change. Previously noted diffuse bilateral pneumonia has resolved. Calcified granuloma is present in the left upper lobe. Calcified granuloma left upper lobe. No suspicious nodule identified. OTHER FINDINGS: There is minimal wedging of T4 not significantly changed. IMPRESSION: Lung-RADS Category 2 Benign Appearance or Behavior Follow-up: Continue annual screening with LDCT in 12 months Dictated by: Brown Mendoza MD 01/06/2020 12:17 Brown Mendoza MD in [place] 01/06/2020 12:17
== END ==
PROVIDERS: PCP Emergency Medicine; Visit Provider Internal Medicine Cardiovascular Disease
DX: Z87.891 Personal history of nicotine dependence (principal); Z12.11 Encounter for screening for malignant neoplasm of colon

== ENCOUNTER 2020-01-30 19:09 | Emergency (ER) | payer MEDICARE, SELFPAY ==
[2020-01-30 19:11] VITALS: BP 87/52; PULSE 66; RESP 16; TEMP 37.1; O2SAT 99; BMI 25.0
--- NOTE | 2020-01-30 19:16 | ECG_ITS ---
APPROVED REPORT Exam: Resting ECG HR:63 bpm ECG Measurements Heart Rate 63 AXES NC 176 P 86 QRSd 90 QRS 66 QT 446 T 41 QTc 456 Conclusion Normal sinus rhythm Normal ECG Electronically signed by : William Jensen, 02/03/2020 09:45:57
--- NOTE | 2020-01-30 19:26 | XR_ITS ---
PROCEDURE: XR PELVIS 1-2V CLINICAL INDICATION: fall Posttraumatic pain COMPARISON: CR PELAP PELVIS AP ONLY from 03/27/2016 TECHNIQUE: XR Pelvis AP View FINDINGS: No fracture or dislocation is evident. Mild osteoarthritic change of the hips. A rounded opacity overlies the medial aspect of the right hip joint possibly due to soft tissue calcification. No lytic or blastic change. IMPRESSION: No acute findings. Dictated by: Brown Mendoza MD 01/31/2020 05:30 Brown Mendoza MD in [facility] 01/31/2020 05:30
--- NOTE | 2020-01-30 19:26 | CT_ITS ---
PROCEDURE: CT THORACIC SPINE WO CON CLINICAL HISTORY: syncope Pain, injury with pain COMPARISON: CT CT THORACIC SPINE WO/W CON from 09/25/2019 TECHNIQUE: Axial images obtained with sagittal and coronal reformats. All CT scans at the facility use one or more dose reduction, viz: automated exposure control, ma/kV adjustment per patient size (including targeted exams where dose is matched to indication, i.e. head), or iterative reconstruction technique. FINDINGS: There is chronic mild wedge compression deformity of T3 and T4 similar in appearance compared to 09/25/2019. Mild multilevel thoracic spondylosis. No acute fracture or dislocation is evident. Unremarkable surrounding soft tissues. IMPRESSION: 1. No acute fracture. 2. Minimal chronic wedge compression deformity of T3 and T4 with mild multifocal degenerative change. Dictated by: Borwn Mendoza MD 01/31/2020 06:32 Brown Mendoza MD in [facility] 01/31/2020 06:32
--- NOTE | 2020-01-30 19:26 | XR_ITS ---
PROCEDURE: XR CHEST PORTABLE CLINICAL HISTORY: Syncope Current smoker COMPARISON: CT CHWO CT CHEST W/O CONTRAST from 09/22/2014 CR XR CHEST 2V from 09/24/2019 DX XR CHEST 2V from 09/25/2019 CR XR CHEST PORTABLE from 11/08/2019 FINDINGS: The cardiomediastinal silhouette and pulmonary vascularity are within normal limits. The lungs are clear without infiltrates, suspicious nodules, or pleural effusions. No acute bony abnormalities. IMPRESSION: No acute findings. Dictated by: Brown Mendoza MD 01/31/2020 05:29 Brown Mendoza MD in [facility] 01/31/2020 05:29
--- NOTE | 2020-01-30 19:26 | CT_ITS ---
PROCEDURE: CT LUMBAR SPINE WO CON CLINICAL HISTORY: syncope Posttraumatic pain, low back pain COMPARISON: No exams were available for comparison TECHNIQUE: Axial images obtained with sagittal and coronal reformats. All CT scans at the facility use one or more dose reduction, viz: automated exposure control, ma/kV adjustment per patient size (including targeted exams where dose is matched to indication, i.e. head), or iterative reconstruction technique. FINDINGS: Normal alignment. No acute fracture or dislocation. There is degenerative disc disease T12-L1 and L1-L2. Mild bulging disc L2-L3 L3-L4 L4-5 and L5-S1. There is a 4 mm nonobstructing stone in the lower pole of the left kidney. IMPRESSION: 1. No acute finding. 2. Lumbar spondylosis. 3. Nonobstructing left nephrolithiasis Dictated by: Brown Mendoza MD 01/31/2020 06:36 Brown Mendoza MD in [facility] 01/31/2020 06:36
--- NOTE | 2020-01-30 19:26 | CT_ITS ---
PROCEDURE: CT CERVICAL SPINE WO CON CLINICAL INDICATION: syncope Neck injury with pain, contusion/abrasion or hematoma, cervical sprain/strain the COMPARISON: CT CSWO CT CERVICAL SPINE W/O CONT from 03/27/2016 TECHNIQUE: Axial images obtained with sagittal and coronal reformats. All CT scans at the facility use one or more dose reduction, viz: automated exposure control, ma/kV adjustment per patient size (including targeted exams where dose is matched to indication, i.e. head), or iterative reconstruction technique. Axial spiral CT scanning performed of the cervical spine beginning at the base of the skull and continuing to the upper T-spine. 3-D multiplanar reconstruction with 3-D manipulation of volumetric data set in image rendering was completed by the radiologist and/or technologist with the supervision of the radiologist on independent workstation. FINDINGS: Posterior fusion noted C1 through C4. Inter pedicular screws are present at C1 C3 and C4. There are interconnecting rods. There is 3 mm anterolisthesis of C2 on C3 with suspected old fracture of the left lateral mass of C2. There is degenerative disc disease at C2-C3. Also suspect old compression deformity of C3. There is mild lumbar multilevel cervical spondylosis from C2-C7. No bony canal stenosis or significant neural foraminal narrowing. Lung apices are clear. No acute fracture apparent. IMPRESSION: 1. No acute fracture. 2. Posterior fusion C1 through C4 with 3 mm anterolisthesis of C2 on C3 with an old fracture of C2 and C3. 3. Cervical spondylosis Dictated by: Brown Mendoza MD 01/31/2020 06:26 Brown Mendoza MD in [place] 01/31/2020 06:26
--- NOTE | 2020-01-30 19:26 | CT_ITS ---
PROCEDURE: CT HEAD/BRAIN WO CON CLINICAL INDICATION: syncope Head injury with headache/pain, contusion, abrasion or hematoma COMPARISON: CT CT HEAD/BRAIN WO CON from 11/08/2019 TECHNIQUE: Axial images obtained. All CT scans at the facility use one or more dose reduction, viz: automated exposure control, ma/kV adjustment per patient size (including targeted exams where dose is matched to indication, i.e. head), or iterative reconstruction technique. FINDINGS: No midline shift, mass effect, intracranial hemorrhage, hydrocephalus, or extra-axial fluid collection is evident. The calvarium has an unremarkable appearance. No mastoid effusion. No sinus air-fluid level. IMPRESSION: No acute intracranial finding Dictated by: Brown Mendoza MD 01/31/2020 06:21 Brown Mendoza MD in [place] 01/31/2020 06:21
--- NOTE | 2020-01-30 19:33 | PC.NURSE ---
FSBS on arrival 160
--- NOTE | 2020-01-30 19:35 | PC.NURSE ---
On Arrival pt was AAOx4, PERRL 3mm, moves all ext equal with no loss of sensation. pt not sure what caused her syncopal episode, pt hit her head on the floor post syncope, pt states she has chronic back pain and is complaining of back pain on arrival.
[2020-01-30 19:41] LABS: Basophils # 0.1 K/mm3 (0-0.2); Basophils % 0.8 % (0.1-2.0); Chloride 109 mmol/L (98-107); Eosinophils # 0.1 K/mm3 (0.0-0.4); Eosinophils % 2.1 % (0.1-12.0); Hematocrit 38.1 % (37.0-47.0); Hemoglobin 11.6 g/dL (12.2-16.2); Lymphocytes # 2.6 K/mm3 (0.7-4.5); Lymphocytes % 36.7 % (10-50); Mean Corpuscular HGB Conc 30.4 g/dL (31.8-35.4); Mean Corpuscular Hemoglobin 29.8 pg (27.0-31.2); Mean Corpuscular Volume 97.9 fl (81-99); Mean Platelet Volume 11.7 fl (7.4-10.4); Monocytes # 0.4 K/mm3 (0.1-1.0); Monocytes % 5.6 % (1.7-9.3); Neutrophils # 3.8 K/mm3 (1.8-7.8); Neutrophils % 54.8 % (37.0-80.0); Platelet Count 183 K/mm3 (142-424); Potassium 3.8 mmoL/L (3.5-5.1); Red Blood Count 3.89 M/mm3 (4.20-5.40); Red Cell Distribution Width 16.1 % (11.5-17.5); Sodium 137 mmol/L (136-145)
[2020-01-30 19:44] LABS: Alanine Aminotransferase 16 U/L (12-78); Albumin Level 3.4 g/dl (3.5-5.0); Albumin/Globulin Ratio 1.2 (1.1-1.8); Alkaline Phosphatase 49 U/L (38-126); Anion Gap 13.8 mEq/L (5-15); Aspartate Amino Transferase 24 U/L (14-36); Bilirubin,Total 0.2 mg/dl (0.2-1.3); Blood Urea Nitrogen 16 mg/dl (7-17); Carbon Dioxide 18 mmol/L (22.0-30.0); Creatinine Clearance Estimated 46 mL/min (50-200); Estimated Glomerular Filt Rate 38 ml/min (>60); GFR (African American) 47 ML/MIN (>60); Globulin 2.9 g/dL (1.3-3.2); Total Protein,Serum 6.3 g/dl (6.3-8.2)
[2020-01-30 19:45] LABS: Calcium 9.1 mg/dl (8.4-10.2); Glucose 165 mg/dl (74-100)
[2020-01-30 19:49] LABS: Ethyl Alcohol < 10 mg/dl (0-10)
[2020-01-30 19:50] LABS: C-Reactive Protein 0.5 mg/L (0-4)
[2020-01-30 20:02] LABS: Troponin I < 0.01 ng/ml (0.00-0.034)
--- NOTE | 2020-01-30 20:04 | HMH.EDSYNC ---
ED Disposition Clinical Impression: Renal insufficiency Syncope Qualifiers: Syncope type: unspecified Qualified Code(s): R55 - Syncope and collapse Disposition: Home, Self-Care Condition on Discharge: Good Instructions: DI for Syncope in Adults (Fainting) Additional Instructions: call pcp and follow up this week Referrals: Demario Gotti MD [Primary Care Provider] - - Critical Care Critical Care Time: No Attestation: On 01/30/20, the high probability of a clinically significant, sudden or life threatening deterioration of the following system(s) required my full and direct attention, intervention and personal management. The time I documented below is in addition to time spent performing reported procedures but includes the following listed in this critical care notation. Medical Decision Making - Medical Records Medical records reviewed: Yes: I reviewed the patient's medical records. - Gabriel Inquiry Pt receiving controlled substance: No Vital Signs: 01/30/20 19:11 01/30/20 20:10 Temperature 98.7 F Temperature Source Oral Pulse Rate [Right] 66 65 Respiratory Rate 16 16 Blood Pressure [Right Arm] 87/52 L 95/45 L Blood Pressure Mean [Right Arm] 63 61 Blood Pressure Source [Right Arm] Automatic Cuff Automatic Cuff Blood Pressure Position [Right Arm] Supine Sitting 02 Sat by Pulse Oximetry 99 97 Oxygen Delivery Method Room Air - Lab Data Lab results reviewed: Yes: I reviewed the patient's lab results. Lab Results 01/30/20 19:00: WBC 7.0, RBC 3.89 L, Hgb 11.6 L, Hct 38.1, MCV 97.9, MCH 29.8, MCHC 30.4 L, RDW 16.1, Plt Count 183, MPV 11.7 H, Neut % (Auto) 54.8, Lymph % (Auto) 36.7, [place] % (Auto) 5.6, Eos % (Auto) 2.1, Baso % (Auto) 0.8, Neut # (Auto) 3.8, Lymph # (Auto) 2.6, [place] # (Auto) 0.4, Eos # (Auto) 0.1, Baso # (Auto) 0.1, ESR 21 01/30/20 19:00: Sodium 137, Potassium 3.8, Chloride 109 H, Carbon Dioxide 18 L, Anion Gap 13.8, BUN 16, Creatinine 1.40 H, Estimated Creat Clear 46, Estimated GFR 38 L, Est GFR ( Amer) 47 L, Glucose 165 H, Calcium 9.1, Total Bilirubin 0.2, AST 24, ALT 16, Alkaline Phosphatase 49, Troponin I < 0.01, C-Reactive Protein 0.5, Total Protein 6.3, Albumin 3.4 L, Globulin 2.9, Albumin/Globulin Ratio 1.2 01/30/20 19:00: SARS-CoV-2 IgG Ab (Rapid) Negative, SARS-CoV-2 IgM Ab (Rapid) Negative 01/30/20 19:00: Plasma/Serum Alcohol < 10 Result diagrams: 01/30/20 19:00 01/30/20 19:00 Orders (Tests/Meds): ED MEDICATIONS Generic Name Dose Route Start Last Admin Trade Name Freq PRN Reason Stop Dose Admin Sodium Chloride 1,000 mls @ 999 mls/hr 01/30/20 19:30 01/30/20 19:35 Sod Chlor 0.9% 1000ml Bag IV 01/30/20 20:30 999 mls/hr .Q1H1M IRMA Administration ORDERS Category Date Time Status CT cervical spine wo con Stat Cat Scan 01/30/20 19:[address] head/brain wo con Stat Cat Scan 01/30/20 19:[address] lumbar spine wo con Stat Cat Scan 01/30/20 19:[address] thoracic spine wo con Stat Cat Scan 01/30/20 19:26 Taken XR chest portable Stat Exams 01/30/20 19:26 Taken XR pelvis 1-2V Stat Exams 01/30/20 19:26 Taken Drug Screen,Urine Stat Lab 01/30/20 19:30 Ordered Gabapentin,Urine Stat Lab 01/30/20 20:45 Ordered Magnesium Stat Lab 01/30/20 21:02 Ordered Troponin I Q3H Lab 01/30/20 22:30 Ordered Troponin I Q3H Lab 01/31/20 01:30 Ordered Urinalysis and Microscopic Stat Lab 01/30/20 19:30 Ordered - Radiology Data #1 Image(s): Chest, Pelvis Image Reviewed: Yes I reviewed the patient's radiology image Preliminary Findings: No Fracture Seen - CT Data CT Scan: Head, C-Spine, T-Spine, L-Spine Time Received: 21:[address] Reviewed: Yes: I have viewed the radiologist's interpretation Preliminary Findings: No Fracture Seen (possible t3) - ECG Data Tracing #1 Normal Sinus Rhythm: Yes Ischemic changes: non-specific ST-T wave changes Syncope HPI - General Chief Complaint: Syncope Stated Complaint: syncope Time Seen b
--- NOTE | 2020-01-30 20:05 | PC.NURSE ---
cleaned wound with sterile water and hebacleanse. triple antibiotic ointment applied with non stick dressing and wrapped with 3in marlon x 3 wounds.
[2020-01-30 20:10] VITALS: BP 95/45; PULSE 65; RESP 16; O2SAT 97
[2020-01-30 20:10] LABS: Coronavirus 19 IgG Antibody Negative (Negative); Coronavirus 19 IgM Antibody Negative (Negative)
[2020-01-30 20:17] LABS: Erythrocyte Sedimentation Rate 21 mm/hr (0-30)
--- NOTE | 2020-01-30 21:15 | PC.NURSE ---
pt able to ambulate safely around emergency department without complaints of dizziness. pt bp standing beside bed was 118/79.
[2020-01-30 21:17] VITALS: BP 118/79; PULSE 95
[2020-01-30 21:44] VITALS: BP 112/62; PULSE 62; RESP 14; TEMP 37.1; O2SAT 99
[2020-02-06 10:30] LABS: POC Glucose,Bedside 160 (70-110)
== END 2020-01-30 21:47 | disposition home or self-care (01) ==
PROVIDERS: Emergency Provider Emergency Medicine; PCP Emergency Medicine
DX: R55 Syncope and collapse (principal); S00.03XA Contusion of scalp, initial encounter; W18.39XA Other fall on same level, initial encounter; Y92.89 Other specified places as the place of occurrence of the external cause; N28.9 Disorder of kidney and ureter, unspecified; F41.8 Other specified anxiety disorders; J44.9 Chronic obstructive pulmonary disease, unspecified; E78.5 Hyperlipidemia, unspecified; I10 Essential (primary) hypertension; E11.9 Type 2 diabetes mellitus without complications; Z86.73 Personal history of transient ischemic attack (TIA), and cerebral infarction without residual deficits; F17.210 Nicotine dependence, cigarettes, uncomplicated; Z88.7 Allergy status to serum and vaccine; Z79.899 Other long term (current) drug therapy
CPT/HCPCS: 70450; 71045; 72125; 72128; 72131; 72170; 80053; 82962; 83735; 84484; 85025; 85651; 86140; 86328; 93005; 96365; 99283

== ENCOUNTER 2020-04-08 10:00 | Emergency (ER) | payer MEDICARE, SELFPAY ==
[2020-04-08] VITALS (17 sets, daily range): BP systolic 106–154; BP diastolic 60–93; PULSE 74–112; RESP 12–20; TEMP 36.7; O2SAT 93–99; BMI 23.6
--- NOTE | 2020-04-08 09:54 | XR_ITS ---
PROCEDURE: XR RIBS RT MIN 3V W CXR1V CLINICAL INDICATION: fall Posttraumatic pain, Blunt trauma with injury and pain, contusion/abrasion or hematoma following injury COMPARISON: CT [facility] CT CHEST W/O CONTRAST from 09/22/2014 DX XR CHEST 2V from 09/25/2019 CR XR CHEST PORTABLE from 11/08/2019 CR XR CHEST PORTABLE from 01/30/[address] CHEST WO CON from 04/08/2020 FINDINGS: Frontal view of the chest shows patchy infiltrate in the right upper and right lower lobe and left perihilar region. Multiple views obtained of the right ribs demonstrates a displaced right 9th rib fracture and minimally displaced right 8th rib fracture with suspected old fractures of the right 5th and 6th ribs. No evidence of pneumothorax. IMPRESSION: Mildly offset right 8th and 9th rib fractures with old right 5th and 6th rib fractures and patchy infiltrate in the right upper right lower lobe and left perihilar region Dictated by: Brown Mendoza MD 04/08/2020 13:15 Brown Mendoza MD in [place] 04/08/2020 13:15
--- NOTE | 2020-04-08 10:02 | HMH.EDGENADL ---
ED Disposition Clinical Impression: Pulmonary infiltrates, Hyponatremia, Acute kidney injury Ribs, multiple fractures Qualifiers: Encounter type: initial encounter Fracture type: closed Laterality: right Qualified Code(s): S22.41XA - Multiple fractures of ribs, right side, initial encounter for closed fracture Disposition: Home, Self-Care Condition on Discharge: Fair Instructions: DI for Dehydration -- Adult, DI for Pneumonia -- Adult, DI for Rib Fracture, How to Prevent Falls, Hyponatremia-Adult Additional Instructions: Rest and drink plenty of fluids. Blair as needed for pain from fractured ribs. Incentive spirometer every 2 hours while awake. Levaquin as prescribed for pneumonia. Follow-up with your primary care provider within 4 to 5 days, call for appointment. Quarantine yourself until Covid test result is known. Call the emergency department in 2 to 3 days to obtain result. Additional instructions for PNEUMONIA: Take antibiotics as prescribed. See your physician as soon as possible for further evaluation. Return immediately if you have an uncontrollable fever greater than 102 degrees, difficulty breathing or shortness of breath, persistent vomiting, or severe chest pain. Additional instructions for CONTROLLED SUBSTANCES: You have been prescribed a medication that is a controlled substance. Controlled substances include pain medications known as opiates and sedative nerve medications known as benzodiazepines. Tramadol, fioricet, and gabapentin are also controlled substances. Some common opiates include: Codeine (such as Tylenol #3) Hydrocodone (Vicodin, Lortab, Lorcet, Blair) Oxycodone (Percocet, Percodan, Oxycodone, Oxy IR) Some common benzodiazepines include: Diazepam (Valium) Lorazepam (Ativan) Alprazolam (Xanax) Clonazepam (Klonopin) Oxazepam (Serax) All of these controlled substances are highly addictive and frequently abused. Misuse can and frequently does lead to addiction as well as overdose and . Medication should be stored in a locked cabinet or other secure storage unit. Do not store the medication in a motor vehicle. Short term supplies, 3 days or less, are prescribed because of the highly addictive nature of the medication. Any of the controlled substance medication NOT taken should be disposed of properly and NOT SAVED. The recommended method of disposing of unused medications is: Place the medicines in a sealable plastic bag. If the medicine is a solid, crush it or add water to dissolve it. Add something undesirable (cat litter, coffee grounds, etc.) Dispose of sealed bag in household trash Do not flush or pour unused medicines down a sink or drain. Controlled substances should not be shared, given away or sold. Because of the addictive nature and frequent abuse, these medications are sometimes stolen. These medications should be kept in a safe place where they cannot be stolen. Do not keep them in your car or purse. Lost or stolen prescriptions for controlled substances WILL NOT BE REFILLED in this emergency department, regardless of whether a police report was filed. Prescriptions: Hydrocod/Acet 5/325 mg [Blair 5/325mg tablet] 1 tab PO Q6HP PRN #20 tab PRN Reason: Pain Transmission Status: Sent to [facility] levoFLOXacin [Levaquin 250mg tab] 250 mg PO DAILY #9 tab Transmission Status: Pending to [facility] Referrals: PCP,No [Non-Staff] - Demario Gotti MD [Primary Care Provider] - 3 days - Critical Care Critical Care Time: No Attestation: On , the high probability of a clinically significant, sudden or life threatening deterioration of the following system(s) required my full and direct attention, intervention and personal management. The time I documented below is in addition to time spent performing reported procedures but includes the following listed in this critical care notation. Medical Decision Making - Gabriel Valdez
[2020-04-08 10:11] LABS: Basophils % 0.2 % (0.1-2.0); Eosinophils # 0.2 K/mm3 (0.0-0.4); Eosinophils % 1.4 % (0.1-12.0); Hematocrit 33.2 % (37.0-47.0); Hemoglobin 10.8 g/dL (12.2-16.2); Lymphocytes # 0.8 K/mm3 (0.7-4.5); Lymphocytes % 6.2 % (10-50); Mean Corpuscular HGB Conc 32.4 g/dL (31.8-35.4); Mean Corpuscular Hemoglobin 30.4 pg (27.0-31.2); Mean Corpuscular Volume 93.7 fl (81-99); Monocytes # 0.4 K/mm3 (0.1-1.0); Monocytes % 3.1 % (1.7-9.3); Neutrophils # 11.1 K/mm3 (1.8-7.8); Neutrophils % 89.2 % (37.0-80.0); Platelet Count 129 K/mm3 (142-424); Red Blood Count 3.54 M/mm3 (4.20-5.40); Red Cell Distribution Width 15.7 % (11.5-17.5); White Blood Count 12.4 K/mm3 (4.8-10.8)
[2020-04-08 10:12] LABS: MANUAL DIFFERENTIAL MANUAL DIFFERENTIAL (MANUAL DIFF)
[2020-04-08 10:15] LABS: Chloride 99 mmol/L (98-107); Potassium 3.9 mmoL/L (3.5-5.1); Sodium 127 mmol/L (136-145)
[2020-04-08 10:18] LABS: Alanine Aminotransferase 43 U/L (12-78); Albumin Level 4.1 g/dl (3.5-5.0); Albumin/Globulin Ratio 1.3 (1.1-1.8); Alkaline Phosphatase 53 U/L (38-126); Anion Gap 12.9 mEq/L (5-15); Aspartate Amino Transferase 131 U/L (14-36); Bilirubin,Total 0.6 mg/dl (0.2-1.3); Blood Urea Nitrogen 28 mg/dl (7-17); Carbon Dioxide 19 mmol/L (22.0-30.0); Creatinine Clearance Estimated 28 mL/min (50-200); Estimated Glomerular Filt Rate 21 ml/min (>60); GFR (African American) 25 ML/MIN (>60); Globulin 3.2 g/dL (1.3-3.2); Glucose 174 mg/dl (74-100); Total Protein,Serum 7.3 g/dl (6.3-8.2)
[2020-04-08 10:27] LABS: Lymphocytes % 9 % (10-50); Monocytes % 4 % (2-9); Neutrophils % 87 % (42-76); Platelet Estimate Normal; RBC Morphology Normal; Total Cells Counted 100
--- NOTE | 2020-04-08 10:35 | CT_ITS ---
PROCEDURE: CT CHEST WO CON CLINICAL INDICATION: chest injury Blunt trauma with injury and pain, contusion/abrasion or hematoma following injury COMPARISON: CT CT LUNG SCREENING from 01/04/2020 TECHNIQUE: Axial images obtained with sagittal and coronal reformats. All CT scans at the facility use one or more dose reduction, viz: automated exposure control, ma/kV adjustment per patient size (including targeted exams where dose is matched to indication, i.e. head), or iterative reconstruction technique. FINDINGS: Mediastinal and vascular evaluation is limited without IV contrast specially in setting of trauma. 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 There are some coronary artery calcifications and hilar lacho calcifications noted. There are bilateral patchy areas ground-glass attenuation in the right upper lobe, right lower lobe, left upper lobe. There is a 7 mm noncalcified nodule in the right upper lobe centrally image 36 series 4. Other smaller nodular opacities noted in the right upper lobe possibly due to more dense areas of consolidation. Follow-up may confirm. No effusions are evident. No evidence of pneumothorax. Atelectatic changes are present in the right upper lobe There is an old right 3rd 4th and 5th rib fractures. Acute right 7th, 8th and 9th rib fractures are present laterally IMPRESSION: 1. Acute appearing right 7th, 8th and 9th rib fractures. No evidence of pneumothorax. 2. Old right 3rd 4th and 5th rib fractures. 3. Patchy bilateral airspace disease having somewhat ground-glass attenuation. Covid19 pneumonia is a consideration. There is some nodularity in right upper lobe. Suggest convalescent follow-up to confirm resolution. Dictated by: Brown Mendoza MD 04/08/2020 13:30 Brown Mendoza MD in [place] 04/08/2020 13:30
[2020-04-08 10:37] LABS: T4 (Thyroxine) 8.9 ug/dl (5.53-11.0)
--- NOTE | 2020-04-08 10:40 | CT_ITS ---
PROCEDURE: CT ABDOMEN PELVIS WO CON CLINICAL INDICATION: blunt trauma Blunt trauma with injury and pain, contusion/abrasion or hematoma following injury COMPARISON: CT CT ABDOMEN PELVIS W CON from 09/24/2019 TECHNIQUE: Axial images obtained with sagittal and coronal reformats. All CT scans at the facility use one or more dose reduction, viz: automated exposure control, ma/kV adjustment per patient size (including targeted exams where dose is matched to indication, i.e. head), or iterative reconstruction technique. FINDINGS: Solid organ evaluation is limited without IV contrast specially in the setting of trauma. The liver, spleen, adrenal glands, the pancreas, have an unremarkable appearance. There are few small peripancreatic lymph nodes. A 6 x 2 mm linear stone is present in the lower pole of the left kidney. No ureteral calculi. There is a mild amount of retained colonic feces. There is colonic diverticulosis without evidence of diverticulitis. The Multiple unopacified bowel loops in the abdomen or pelvis which could obscure or mimic pathology. If symptoms persist, consider repeat exam with IV and oral contrast. There is reported prior appendectomy. There is mild thickening of the rectum. There are scattered small mildly prominent lymph nodes in the inguinal area on both sides. Right-sided rib fractures are present as described in the chest CT report IMPRESSION: Moderate amount of retained colonic feces with colonic diverticulosis. Mild thickening of the rectum which could be seen with proctitis. Multiple unopacified bowel loops in the abdomen or pelvis which could obscure or mimic pathology. If symptoms persist, consider repeat exam with IV and oral contrast. Left nephrolithiasis Dictated by: Brown Mendoza MD 04/08/2020 13:43 Brown Mendoza MD in [place] 04/08/2020 13:43
[2020-04-08 10:49] LABS: Thyroid Stimulating Hormone 0.74 uIU/mL (0.465-4.68)
[2020-04-08 11:41] LABS: Coronavirus 19 IgG Antibody Negative (Negative); Coronavirus 19 IgM Antibody Negative (Negative)
--- NOTE | 2020-04-08 13:33 | PC.NURSE ---
Spoke with brother related to patient needing a ride home. States he is on his way to work in [employer] and will attempt to call someone to pick her up.
--- NOTE | 2020-04-08 14:22 | PC.NURSE ---
FAMILY MEMBER, TREMAYNE CALLED STATES SHE CAN CHIEF SECURITY AND SAFETY OFFICER PT AT 5PM
--- NOTE | 2020-04-08 17:13 | PC.NURSE ---
pt up to restroom.
--- NOTE | 2020-04-08 17:23 | PC.NURSE ---
Pt sitting on side of bed eating at this time.
--- NOTE | 2020-04-08 17:50 | PC.NURSE ---
Attempted to call patient's ride with no answer.
[2020-04-09 09:35] LABS: Covid-19 Nasal PCR Sendout P&C NEGATIVE
== END 2020-04-08 18:07 | disposition home or self-care (01) ==
PROVIDERS: Emergency Provider Emergency Medicine; PCP Emergency Medicine
DX: R91.8 Other nonspecific abnormal finding of lung field (principal); E87.1 Hypo-osmolality and hyponatremia; N17.9 Acute kidney failure, unspecified; S22.41XA Multiple fractures of ribs, right side, initial encounter for closed fracture; J44.9 Chronic obstructive pulmonary disease, unspecified; W01.0XXA Fall on same level from slipping, tripping and stumbling without subsequent striking against object, initial encounter; Y92.019 Unspecified place in single-family (private) house as the place of occurrence of the external cause; E03.9 Hypothyroidism, unspecified; E11.9 Type 2 diabetes mellitus without complications; F41.9 Anxiety disorder, unspecified; I10 Essential (primary) hypertension; Z01.84 Encounter for antibody response examination; F17.210 Nicotine dependence, cigarettes, uncomplicated; Z79.899 Other long term (current) drug therapy
CPT/HCPCS: 71101; 71250; 74176; 80053; 84436; 84443; 85007; 85025; 86328; 96365; 96366; 96375; 99284; J1956; J2405; U0004

== ENCOUNTER → 2020-07-07 15:33 | Outpatient (POV) | payer MEDICARE, SELFPAY ==
[2020-07-09 16:46] LABS: Deamidated Gliadin Abs, IgA 3 units (0-19); Deamidated Gliadin Abs, IgG 2 units (0-19); Endomysial IgA Antibody Negative (Negative); Tissue Transglutaminase IgA Ab <2 U/mL (0-3); Tissue Transglutaminase IgG Ab 3 U/mL (0-5)
[2020-07-10 14:09] LABS: Reticulin IgA Antibody Negative titer (Neg:<1:2.5); Saccharomyces cerevisiae, IgA <20.0 Units (0.0-24.9); Saccharomyces cerevisiae, IgG 34.6 Units (0.0-24.9)
== END ==
PROVIDERS: Visit Provider Nurse Practitioner Family
DX: K58.9 Irritable bowel syndrome, unspecified (principal); R68.81 Early satiety; R15.2 Fecal urgency; R63.0 Anorexia; R10.30 Lower abdominal pain, unspecified; R19.7 Diarrhea, unspecified; K59.00 Constipation, unspecified; R63.4 Abnormal weight loss
CPT/HCPCS: 36415; 83516; 86255; 86256; 86671

== ENCOUNTER → 2020-08-20 16:50 | Outpatient (CLI) | payer MEDICARE, SELFPAY ==
[2020-08-20 18:16] LABS: Coronavirus 19 IgG Antibody Negative (Negative); Coronavirus 19 IgM Antibody Negative (Negative)
== END ==
PROVIDERS: Visit Provider Internal Medicine Gastroenterology
DX: Z01.812 Encounter for preprocedural laboratory examination (principal); Z20.822 Contact with and (suspected) exposure to COVID-19; Z13.810 Encounter for screening for upper gastrointestinal disorder; Z12.11 Encounter for screening for malignant neoplasm of colon
CPT/HCPCS: 36415; 86328

== ENCOUNTER 2020-08-22 11:29 | Day surgery (SDC) | payer MEDICARE, SELFPAY ==
[2020-08-19 11:13] VITALS: BMI 24.3
[2020-08-22] VITALS (7 sets, daily range): BP systolic 118–133; BP diastolic 63–79; PULSE 52–61; RESP 16–18; TEMP 36.6; O2SAT 93–100
[2020-08-22 12:07] LABS: POC Glucose,Bedside 157 (70-110)
--- NOTE | 2020-08-22 12:24 | P.PN_ITS ---
[facility] Anesthesia Checklist - Structural Data Admitted From: Home Planned Operative Procedure/s: egd,colonoscopy Consent for Planned Operative Procedure(s) Verified: Yes - Additional verifications Anesthesia Reactions: No - Airway Assessment C-Spine Mobility Assessed: Yes TMJ Mobility Assessed: Yes Dentition: Poor Dentition - Neurological Assessment Level of Consciousness: Awake, Alert, Appropriate - Anesthesia Plan Anesthesia Risk discussed: Yes Anesthesia Plan: Verified ASA Class: III Anesthesia Type: MAC [facility] History I have reviewed the patient's past medical history: Yes Medical History: Reports:: Anxiety, Chronic Obstructive Pulmonary Disease (COPD), Cerebrovascular Accident, Deep Vein Thrombosis, Depression, Diabetes Mellitus Type 2, Hyperlipidemia, Hypertension, Lung Disease, Migraine, Renal Disease Denies:: Cancer, Diabetes Mellitus Type 1, Internal Pacemaker, MRSA, Seizures *Have you ever received a pneumonia vaccine?: Yes *Have you received a flu vaccine this season?: Yes Other Medical History: Reports: Anemia, Arthritis, Hypothyroidism, Thyroid Disease, Other Anesthesia experience/problems:: none Laterality Cases: Left: Arthroscopy Knee Other Surgeries: Yes: Appendectomy, Cardiac Surgery, Colonoscopy, Tubal Ligation. No: Pacemaker Amputation: No Fractures: Yes - *Social History Last grade of school completed: Some college Smoking Status: Current every day smoker Tobacco Type: cigarettes # Packs/Day (cigarettes): 1 Alcohol Intake: never Substance Use Type: former substance user, opiates, painkillers *Occupational Status:: retired, disabled Housing: house Household Members: family *Travel in the last 8 weeks: None - Psychiatric History Pschychiatric History:: Reports:: Anxiety, Depression Family Hx:: Cancer
--- NOTE | 2020-08-22 12:26 | HMH.PROC ---
[facility] Procedure Note Procedure Note:: Upper Endoscopy Procedure Report: Esophagogastroduodenoscopy with cold biopsies and TTS balloon dilation Endoscopost: Arnol Johnson II, MD Referring Physician: PADMINI Galvan Date of Procedure: August 22, 2020 Equipment: Olympus GIF 190 standard upper endoscope Sedation: MAC sedation Indications: Mrs. Ramirez is a 60-year-old female with weight loss of 100 pounds over the last year. This has been unintentional. The patient does have dysphagia after her cardiac injury in 2016. She has to chew and swallow slowly. She does get anxiety. She was diagnosed with irritable bowel syndrome in her teens. Her recent celiac serologies were normal. Her CAT scan in March 2020 showed retained colonic feces with colonic diverticulosis. She does report bloating and gassiness. Procedure: Prior to the procedure, a history and physical exam was performed, and patient's medications and allergies were reviewed. The risks, benefits and alternatives of the sedation and procedure were discussed with the patient. All questions were answered and informed consent was obtained. The patient was brought to the procedure room. Patient identification and proposed procedure were verified by the physician and the nurse. The patient was placed in a left lateral decubitus position and the scope was passed under direct vision. Throughout the procedure, the patient's blood pressure, pulse, and oxygen saturations were monitored continuously. The upper GI endoscopy was accomplished without difficulty. The patient tolerated the procedure well. Findings: The scope was passed directly into the upper esophagus and advanced to the third portion of the duodenum. The post bulbar duodenum and duodenal bulb were normal with normal mucosa and conniventes. Cold biopsies were taken from the second portion of the duodenum and duodenal bulb. The scope was withdrawn through a normal duodenal bulb and pylorus into the stomach. There was bile reflux with moderate linear reactive gastropathy of the antrum and body of the stomach. The remainder of the fundus of the stomach was grossly normal. Upon retroflexion there was no hiatal hernia. 2 biopsies were taken in the antrum and along the lesser curvature for histology to rule out gastritis and/or H pylori. The scope was then withdrawn into the esophagus. There was a serrated Z-line and biopsies were obtained. There was no evidence of reflux esophagitis or Tyler's. There was no evidence of a Schatzki's ring. There were strong tertiary contractions and evidence of moderate esophageal dysmotility. The entire esophagus was dilated to 60 English/20 mm with a TTS hydrostatic balloon. There was some resistance at the cricopharyngeus. The remainder of the esophageal mucosa was normal. Impression: 1. Cricopharyngeal spasm status post dilation to 20 mm 2. Nonerosive GERD with moderate esophageal dysmotility 3. Bile reflux with moderate linear reactive gastropathy Plan: I do feel that the patient has some functional GERD with esophageal spasm/esophageal dysmotility. We will discuss additional treatment options. I will proceed with diagnostic colonoscopy.
--- NOTE | 2020-08-22 12:49 | HMH.PROC ---
[facility] Procedure Note Procedure Note:: Colonoscopy Procedure Report: Colonoscopy with cold biopsies Endoscopist: Arnlo Johnson II, MD Referring physician: PADMINI Galvan Date of Procedure: August 22, 2020 Equipment: Olympus 190 variable stiffness pediatric colonoscope Sedation: MAC sedation Indication: Mrs. Ramirez is a 60-year-old female with abnormal weight loss of up to 100 pounds over the last year. She has had chronic IBS with diarrhea but her CAT scan in March 2020 showed evidence of obstipation with retained feces in moderate amount. She also had colonic diverticulosis. The patient did have a colonoscopy in 2019 (Denzel Cleveland MD) at which time a hyperplastic polyp was removed but the preparation was reportedly poor. She does report a family history of colon cancer in her father had colon cancer in his 60s. The patient recently had lab work showing a positive mildly elevated ASCA IgG antibody (34.6). Her p-ANCA was normal. The patient has had moderate bloating, gassiness and lower abdominal discomfort. She was followed by a cone treater in [place] over 12 years ago. Procedure: Prior to the procedure, a history and physical exam was performed, and patient's medications and allergies were reviewed. The risks, benefits and alternatives of the sedation and procedure were discussed with the patient. All questions were answered and informed consent was obtained. The patient was brought to the procedure room. Patient identification and proposed procedure were verified by the physician and the nurse. The patient was placed in a left lateral decubitus position and the scope was passed under direct vision. Throughout the procedure, the patient's blood pressure, pulse, and oxygen saturations were monitored continuously. The colonoscopy was accomplished without difficulty. The patient tolerated the procedure well. Findings: On digital rectal examination there was normal rectal tone. There were no external hemorrhoids. The colonoscope was introduced through the anal canal to the rectum and advanced to the cecum. The ileocecal valve and appendiceal orifice were identified. The scope was advanced a short distance into the ileum which appeared grossly normal. The scope was then withdrawn into the colon. The cecum, ascending and transverse colon and mucosa were grossly normal. Cold biopsies were taken from the right colon to rule out microscopic colitis. There was a diminutive 3 mm polyp in the descending colon removed via cold biopsy. There were scattered diverticuli throughout the descending and sigmoid colon (LEFT colon). The rectum itself was normal. Upon retroflexion within the rectum there were grade 1-2 internal hemorrhoids. The preparation was fair throughout with [place] Preparation Score of 7 out of 9. The cecal time was 12 minutes. Impression: 1. Diminutive descending colon polyp 2. Left-sided diverticulosis 3. Grade 1-2 internal hemorrhoids Plan: I will follow up the polyp histology and biopsies. I do feel that the patient has functional diarrhea with obstipation. We will discuss additional dietary measures and treatment options.
== END 2020-08-22 13:40 | disposition home or self-care (01) ==
LOC: OUTP 11:30
PROVIDERS: PCP Emergency Medicine; Visit Provider Internal Medicine Gastroenterology
PROC: 0DJ08ZZ Inspection of Upper Intestinal Tract, Via Natural or Artificial Opening Endoscopic (ICD-10-PCS; CPT 43235; principal; 2020-08-22 12:30)
DX: R63.4 Abnormal weight loss (principal); J39.2 Other diseases of pharynx; K21.9 Gastro-esophageal reflux disease without esophagitis; K22.4 Dyskinesia of esophagus; K31.9 Disease of stomach and duodenum, unspecified; K63.5 Polyp of colon; K57.30 Diverticulosis of large intestine without perforation or abscess without bleeding; K64.0 First degree hemorrhoids; Z86.010 Personal history of colon polyps; I10 Essential (primary) hypertension; E78.5 Hyperlipidemia, unspecified; E11.9 Type 2 diabetes mellitus without complications; N18.9 Chronic kidney disease, unspecified
CPT/HCPCS: 43239; 43249; 45380; 82962; 88305; C1726

== ENCOUNTER → 2020-11-07 15:57 | Outpatient (CLI) | payer MEDICARE, SELFPAY ==
--- NOTE | 2020-11-07 15:57 | MM_ITS ---
PROCEDURE INFORMATION: Exam: Screening 3D Mammography Exam date and time: 11/07/2020 3:57 PM Age: 60 years old Clinical indication: Encounter for screening mammogram for malignant neoplasm of breast; Additional info: Screening for breast cancer TECHNIQUE: Imaging protocol: Screening tomosynthesis and 2D mammography including computer-aided detection (CAD) when performed. COMPARISON: [facility] MM Dig screening mamm BI w/CAD 02/09/2018 4:19 PM FINDINGS: MAMMOGRAPHY: Breast composition: The breasts are heterogeneously dense, which may obscure small masses. Mass: No new suspicious masses. Architectural distortion: No suspicious distortion. Calcifications: There is a new 0.6 cm grouping of calcifications in the right lower outer quadrant, posterior depth. New 0.9 cm grouping of calcifications also noted in the left upper outer quadrant, middle depth. Asymmetric density: None. Skin thickening: None. Axillary adenopathy: None. IMPRESSION: 1. Recommend right breast spot magnification CC/ML views for further evaluation of a new grouping of calcifications in the right lower outer quadrant. 2. Recommend left breast spot magnification CC/ML views for further evaluation of a new grouping of calcifications in the left upper outer quadrant. ASSESSMENT: BI-RADS Category 0: Incomplete- Need Additional Imaging Evaluation and/or Prior Mammograms for Comparison
== END ==
PROVIDERS: PCP Emergency Medicine; Visit Provider Emergency Medicine
DX: Z12.31 Encounter for screening mammogram for malignant neoplasm of breast (principal)
CPT/HCPCS: 77063; 77067

== ENCOUNTER → 2020-12-04 13:44 | Outpatient (CLI) | payer MEDICARE, SELFPAY ==
--- NOTE | 2020-12-04 13:45 | MM_ITS ---
PROCEDURE: MM DIG MAMM BI DX W/CAD Digital Breast Tomosynthesis Included CLINICAL INDICATION: abn mamm COMPARISON: MG SCBI MM Dig screening mamm BI w/CAD from 02/09/2018 MG MM DIG SCREENING MAMM BI W/CAD from 11/07/2020 TECHNIQUE: Magnification views bilaterally FINDINGS: Right breast: Mag views are obtained of the cluster of calcifications in the 7 o'clock region breast posterior depth. There are few pleomorphic calcifications in this cluster which has developed since 02/09/2018. Biopsy suggested. Left breast: Magnification views performed of the new cluster of calcification in the 2 o'clock position of the left breast. There are also a few pleomorphic calcifications within this cluster. Biopsy suggested. IMPRESSION: Suspicious bilateral breast calcifications in the 7 o'clock region of the right breast and 2 o'clock region of the left breast.. Recommend bilateral stereotactic biopsy. BI-RAD Category: 4 Suspicious Abnormality-Biopsy Considered FOLLOW-UP: BIO Biopsy Recommended (A letter has been sent to the patient regarding results of the study.) Dictated by: Brown Mendoza MD 12/11/2020 08:43 Brown Mendoza MD in [place] 12/11/2020 08:43
[2020-12-04 15:33] LABS: Basophils # 0.1 K/mm3 (0-0.2); Basophils % 0.5 % (0.1-2.0); Eosinophils # 0.1 K/mm3 (0.0-0.4); Hematocrit 38.9 % (37.0-47.0); Hemoglobin 13.1 g/dL (12.2-16.2); Hemoglobin A1C 6.3 % (4.0-6.0); Lymphocytes # 2.1 K/mm3 (0.7-4.5); Lymphocytes % 23.4 % (10-50); Mean Corpuscular HGB Conc 33.8 g/dL (31.8-35.4); Mean Corpuscular Hemoglobin 29.6 pg (27.0-31.2); Mean Corpuscular Volume 87.7 fl (81-99); Mean Platelet Volume 9.8 fl (7.4-10.4); Monocytes # 0.4 K/mm3 (0.1-1.0); Monocytes % 4.2 % (1.7-9.3); Neutrophils # 6.3 K/mm3 (1.8-7.8); Neutrophils % 70.8 % (37.0-80.0); Platelet Count 175 K/mm3 (142-424); Red Blood Count 4.43 M/mm3 (4.20-5.40); Red Cell Distribution Width 14.8 % (11.5-17.5); White Blood Count 8.9 K/mm3 (4.8-10.8)
[2020-12-04 16:13] LABS: Alanine Aminotransferase 9 U/L (12-78); Albumin Level 4.4 g/dl (3.5-5.0); Albumin/Globulin Ratio 1.6 (1.1-1.8); Alkaline Phosphatase 66 U/L (38-126); Anion Gap 15.5 mEq/L (5-15); Aspartate Amino Transferase 14 U/L (14-36); Bilirubin,Total 0.4 mg/dl (0.2-1.3); Blood Urea Nitrogen 8 mg/dl (7-17); Calcium 9.4 mg/dl (8.4-10.2); Carbon Dioxide 23 mmol/L (22.0-30.0); Chloride 106 mmol/L (98-107); Chol/HDL Ratio 3.5 (1-3.5); Cholesterol 143 mg/dl (140-200); Estimated Glomerular Filt Rate 46 ml/min (>60); GFR (African American) 55 ML/MIN (>60); Globulin 2.7 g/dL (1.3-3.2); Glucose 161 mg/dl (74-100); HDL Cholesterol 41 mg/dl (40-60); Potassium 4.5 mmoL/L (3.5-5.1); Sodium 140 mmol/L (136-145); Total Protein,Serum 7.1 g/dl (6.3-8.2); Triglycerides 152 mg/dl (30-150); VLDL Cholesterol 30 mg/dL (0-40)
[2020-12-04 16:24] LABS: Direct LDL Cholesterol 63.09 mg/dL (100-129)
[2020-12-04 16:31] LABS: Free T4 (Free Thyroxine) 1.73 ng/dl (0.78-2.19)
[2020-12-04 16:43] LABS: Thyroid Stimulating Hormone 0.41 uIU/mL (0.465-4.68)
[2020-12-04 22:07] LABS: 25-OH Vitamin D, Total 23.8 ng/mL (30-100)
== END ==
PROVIDERS: PCP Emergency Medicine; Visit Provider Emergency Medicine
DX: R92.8 Other abnormal and inconclusive findings on diagnostic imaging of breast (principal); E11.9 Type 2 diabetes mellitus without complications; E55.9 Vitamin D deficiency, unspecified; Z79.84 Long term (current) use of oral hypoglycemic drugs; Z79.899 Other long term (current) drug therapy
CPT/HCPCS: 36415; 77062; 77066; 80053; 80061; 82306; 83036; 84439; 84443; 85025; G0279

== ENCOUNTER → 2021-02-04 10:25 | Outpatient (CLI) | payer MEDICARE, SELFPAY ==
--- NOTE | 2021-02-04 10:25 | MM_ITS ---
PROCEDURE: MM STEREOTACTIC LOC LT MG MM CLIP PLACEMENT RT MG MM STEREOTACTIC LOC RT MG MM SURGICAL SPECIMEN RT MG MM SURGICAL SPECIMEN LT MG MM CLIP PLACEMENT LT CLINICAL INDICATION: abn mamm Bilateral suspicious calcifications. COMPARISON: MG MM DIG SCREENING MAMM BI W/CAD from 11/07/2020 MG MM DIG MAMM BI DX W/CAD from 12/04/2020 MG MM CLIP PLACEMENT RT from 02/04/2021 MG MM STEREOTACTIC LOC RT from 02/04/2021 MG MM SURGICAL SPECIMEN RT from 02/04/2021 MG MM SURGICAL SPECIMEN LT from 02/04/2021 MG MM CLIP PLACEMENT LT from 02/04/2021 TECHNIQUE: Following time-out procedure and obtaining informed consent and oral sedation with 1 mg of alprazolam and 7.5 mg hydrocodone/320 mg acetaminophen by mouth the patient was placed in the stereotactic unit. First the left breast calcifications were localized 2 o'clock. Under aseptic conditions and local anesthesia with 1 percent buffered lidocaine and deeper anesthesia with lidocaine mixed with epinephrine, under myotomy was performed and the 8 gauge mammotome needle inserted. After adequate position multiple mammotome biopsies were obtained. Specimen radiograph demonstrated calcifications of interest. A clip was then placed and deemed to be in satisfactory position. After thorough compression the and bandage placement the patient was then placed in the stereotactic table and the right breast calcifications at 2 o'clock were localized and under aseptic conditions and local anesthesia with 1 percent buffered lidocaine and deeper anesthesia with lidocaine mixed with epinephrine providing was performed and 8 gauge mammotome needle inserted. Multiple mammotome biopsies were obtained. Specimen radiograph demonstrated calcifications of interest. A clip was then placed. The patient tolerated the procedure well without evidence mediate complication and left radiology suite in stable condition. FINDINGS: Right specimen radiograph: Calcifications of interest were present. Right post biopsy mammogram: Post biopsy mammogram demonstrates the calcifications of interest having been removed. Biopsy clip is present slightly deeper than the calcification bed. Pathology right breast 7 o'clock fibroadenomatoid change with associated calcifications. Negative for atypia and malignancy. Left specimen radiograph: Calcifications of interest were present. Left post biopsy mammogram/clip placement: Post biopsy changes are present in the 2 o'clock region of the left breast. Calcifications were removed along the anterior aspect of the cluster. All the calcifications were not removed. Pathology left breast: Fibroadenomatoid change with associated calcifications. Negative for atypia and malignancy. IMPRESSION: Status post bilateral breast stereotactic biopsy as described above. No immediate complication. Pathology shows benign findings bilaterally with fibroadenomatoid change. No atypia or malignancy. Suggest follow-up mammogram in 6 months per routine protocol. Dictated by: Brown Mendoza MD 02/06/2021 19:19 Brown Mendoza MD in [place] 02/06/2021 19:19
== END ==
PROVIDERS: PCP Emergency Medicine; Visit Provider Emergency Medicine
DX: R92.8 Other abnormal and inconclusive findings on diagnostic imaging of breast (principal)
CPT/HCPCS: 19081; 76098; 77065; 88305

== ENCOUNTER → 2021-04-24 13:28 | Outpatient (CLI) | payer MEDICARE, SELFPAY ==
--- NOTE | 2021-04-24 13:33 | XR_ITS ---
FINAL REPORT CLINICAL HISTORY: RT shoulder pain 6 months Nki FINDINGS: Three views of the right shoulder were obtained. There is no prior exam for comparison. There is no fracture or dislocation. There is mild degenerative disease of the AC joint. Soft tissues are normal. IMPRESSION: No acute osseous abnormality of the right shoulder. Reviewed, Interpreted and Dictated by Rita Jameson MD Transcribed by Eran Tellez Authenticated by Rita Jameson MD on 04/24/2021 02:16:33 PM [facility]
== END ==
PROVIDERS: PCP Emergency Medicine; Visit Provider Orthopaedic Surgery
DX: M25.511 Pain in right shoulder (principal)
CPT/HCPCS: 73030

== ENCOUNTER → 2021-06-24 04:00 | Outpatient (CLI) | payer MEDICARE, SELFPAY ==
[2021-06-24 19:13] LABS: Amphetamine/Metha Screen,Urine Negative ng/ml (<1000); Barbiturates Screen,Urine Negative ng/ml (<200)
[2021-06-24 19:14] LABS: Benzodiazepines Screen,Urine Negative ng/ml (<200)
[2021-06-24 19:15] LABS: Cannabinoid Screen,Urine Negative ng/ml (<50); Cocaine Screen,Urine Negative ng/ml (<300)
[2021-06-24 19:16] LABS: Methadone Screen,Urine Negative ng/ml (<300)
[2021-06-24 19:17] LABS: Opiate Screen,Urine Positive ng/ml (<300); Phencyclidine Screen,Urine Negative ng/ml (<25)
== END ==
PROVIDERS: Visit Provider Emergency Medicine
DX: R41.82 Altered mental status, unspecified (principal); Z79.899 Other long term (current) drug therapy
CPT/HCPCS: 80305

== ENCOUNTER → 2021-06-25 13:14 | Outpatient (CLI) | payer MEDICARE, SELFPAY ==
--- NOTE | 2021-06-25 13:14 | MR_ITS ---
FINAL REPORT CLINICAL HISTORY: back pain. lbp xyrs. bilateral leg pain, numbness and tingling. worse in lt leg. FINDINGS: Multiplanar MR imaging of the lumbar spine was performed without contrast. On the sagittal T2-weighted images, disc degeneration is seen throughout. There is mild retrolisthesis of L1 on L2 and L2 on L3. There is no evidence of fracture. No bony mass is identified. The conus is seen at approximately the L1 level and has an unremarkable appearance. T11-12: Annular disc bulge. T12-L1: Annular disc bulge and osteophytes. L1-2: Annular disc bulge with facet arthropathy and osteophytes. L2-3: Annular disc bulge and mild bilateral neuroforaminal narrowing. L3-4: Annular disc bulge with mild bilateral neuroforaminal narrowing. L4-5: Annular disc bulge with facet arthropathy and mild bilateral neuroforaminal narrowing. L5-S1: There is annular disc bulge and facet arthropathy without significant canal stenosis or neural foraminal narrowing. IMPRESSION: Multilevel degenerative disc disease with mild bilateral neuroforaminal narrowing at L2-3, L3-4 and L4-5. Reviewed, Interpreted and Dictated by Denzel Chowdhury III, MD Transcribed by Hillary Darnell Authenticated by Denzel Chowdhury III, MD on 06/25/2021 04:16:09 PM [facility]
--- NOTE | 2021-06-25 13:14 | MR_ITS ---
FINAL REPORT CLINICAL HISTORY: neck pain. hx neck surgery 2016. rt sided neck pain. unable to turn head to the left. rt arm pain, numbness, and tingling. FINDINGS: Multiplanar MR imaging of the cervical spine was performed without contrast. On the sagittal T2-weighted images, disc degeneration is seen throughout. There are postoperative changes posteriorly from presumed posterior fusion from C1-C5. Hardware artifact obscures some detail. There is no evidence of fracture. There is mild anterolisthesis of C2 on C3. The cervical spinal cord has an unremarkable appearance without evidence of mass, edema or syrinx. No significant canal stenosis is identified. The cervicomedullary junction is normal. C2-3: There is no significant canal stenosis or neural foraminal narrowing. C3-4: There is no significant canal stenosis or neural foraminal narrowing. C4-5: There is an annular disc bulge without significant canal stenosis or neural foraminal narrowing. C5-6: Disc osteophyte complex with moderate bilateral neuroforaminal narrowing. C6-7: Disc osteophyte complex with moderate bilateral neuroforaminal narrowing. C7-T1: There is no significant canal stenosis or neural foraminal narrowing. IMPRESSION: Postoperative changes of fusion from C1-C5. Moderate bilateral neuroforaminal narrowing at C5-6 and C6-7. Reviewed, Interpreted and Dictated by Denzel Chowdhury III, MD Transcribed by Hillary Darnell Authenticated by Denzel Chowdhury III, MD on 06/25/2021 04:16:08 PM [facility]
== END ==
PROVIDERS: PCP Emergency Medicine; Visit Provider Emergency Medicine
DX: M54.2 Cervicalgia (principal); M54.9 Dorsalgia, unspecified; M54.50 Low back pain, unspecified
CPT/HCPCS: 72141; 72148; 76376

== ENCOUNTER → 2021-08-21 15:45 | Outpatient (CLI) | payer MEDICARE, SELFPAY ==
[2021-08-21 17:37] LABS: Amphetamine/Metha Screen,Urine Negative ng/ml (<1000)
[2021-08-21 17:38] LABS: Barbiturates Screen,Urine Negative ng/ml (<200); Benzodiazepines Screen,Urine Negative ng/ml (<200)
[2021-08-21 17:39] LABS: Cannabinoid Screen,Urine Negative ng/ml (<50)
[2021-08-21 17:40] LABS: Cocaine Screen,Urine Negative ng/ml (<300); Methadone Screen,Urine Negative ng/ml (<300)
[2021-08-21 17:41] LABS: Opiate Screen,Urine Positive ng/ml (<300)
[2021-08-21 17:42] LABS: Phencyclidine Screen,Urine Negative ng/ml (<25)
== END ==
PROVIDERS: PCP Emergency Medicine; Visit Provider Emergency Medicine
DX: Z79.899 Other long term (current) drug therapy (principal)
CPT/HCPCS: 80305

== ENCOUNTER 2021-08-26 13:33 | Inpatient (IN) | payer MEDICARE, SELFPAY ==
[2021-08-26] VITALS (14 sets, daily range): BP systolic 126–157; BP diastolic 64–90; PULSE 68–96; RESP 16–18; TEMP 36.3–37.2; O2SAT 96–99; BMI 22.8; BMI 25.0
--- NOTE | 2021-08-26 13:36 | CT_ITS ---
FINAL REPORT CLINICAL HISTORY: FALL, AMS COMPARISON: January 30, 2020 FINDINGS: Axial images of the head were obtained without contrast. Coronal reformatted images were also obtained.This study was performed with techniques to keep radiation doses as low as reasonably achievable (ALARA). Individualized dose reduction techniques using automated exposure control or adjustment of mA and/or kV according to the patient's size were employed. There is no evidence of intracranial hemorrhage or mass. The ventricular size is within normal limits. There is no evidence of shift of the midline structures. No abnormal extra axial fluid collection is identified. No skull abnormality is seen on the bone window images. There is a retention cyst or polyp in the left maxillary sinus. There is mild mucosal thickening in the right maxillary sinus. IMPRESSION: No acute intracranial abnormality. Reviewed, Interpreted and Dictated by Denzel Chowdhury III, MD Transcribed by Eran Tellez Authenticated by Denzel Chowdhury III, MD on 08/26/2021 02:31:39 PM [facility]
--- NOTE | 2021-08-26 13:36 | XR_ITS ---
FINAL REPORT CLINICAL HISTORY: cough COMPARISON: April 08, 2020 FINDINGS: The heart size is normal. The mediastinum is normal. There is mild scarring in the lung bases. There is no focal infiltrate or edema. There are no pleural effusions. There is no pneumothorax. There is no osseous abnormality. IMPRESSION: No acute cardiopulmonary process Reviewed, Interpreted and Dictated by Denzel Chowdhury III, MD Transcribed by Eran Tellez Authenticated by Denzel Chowdhury III, MD on 08/26/2021 02:31:38 PM [facility]
--- NOTE | 2021-08-26 13:36 | XR_ITS ---
FINAL REPORT CLINICAL HISTORY: FALL FINDINGS: AP PELVIS: A single view of the pelvis was obtained. There is no acute fracture or dislocation. There are mild degenerative changes of the hips and the lower lumbar spine. There are several calcifications overlying the right hip. IMPRESSION: No acute process. Reviewed, Interpreted and Dictated by Denzel Chowdhury III, MD Transcribed by Eran Tellez Authenticated by Denzel Chowdhury III, MD on 08/26/2021 02:31:39 PM [facility]
--- NOTE | 2021-08-26 14:03 | PC.NURSE ---
lab called for blood draw
--- NOTE | 2021-08-26 14:32 | HMH.EDAMS ---
ED Disposition Clinical Impression: Acute kidney injury Rhabdomyolysis Qualifiers: Rhabdomyolysis type: traumatic Encounter type: initial encounter Qualified Code(s): T79.6XXA - Traumatic ischemia of muscle, initial encounter Disposition: Admitted As Inpatient Condition on Discharge: Fair Instructions: DI for Altered Mental Status Referrals: Demario Gotti MD [Primary Care Provider] - - Critical Care Critical Care Time: No Attestation: On 08/26/21, the high probability of a clinically significant, sudden or life threatening deterioration of the following system(s) required my full and direct attention, intervention and personal management. The time I documented below is in addition to time spent performing reported procedures but includes the following listed in this critical care notation. Medical Decision Making - Medical Records Medical records reviewed: Yes: I reviewed the patient's medical records. - Gabriel Inquiry Pt receiving controlled substance: No Vital Signs: 08/26/21 13:45 08/26/21 14:30 08/26/21 15:00 Temperature 98.9 F Temperature Source Oral Pulse Rate 96 H 74 Pulse Rate [Left Radial] 95 H Respiratory Rate 18 18 16 Blood Pressure 138/75 126/71 Blood Pressure [Right Arm] 157/90 H Blood Pressure Mean 108 108 Blood Pressure Mean [Right Arm] 112 02 Sat by Pulse Oximetry 97 97 96 Oxygen Delivery Method Room Air - Lab Data Lab Results 08/26/21 14:17: WBC 11.2 H, RBC 4.43, Hgb 13.5, Hct 40.0, MCV 90.2, MCH 30.5, MCHC 33.8, RDW 14.9, Plt Count 170, MPV 12.0 H, Neut % (Auto) 91.2 H, Lymph % (Auto) 4.8 L, [place] % (Auto) 3.2, Eos % (Auto) 0.2, Baso % (Auto) 0.7, Neut # (Auto) 10.2 H, Lymph # (Auto) 0.5 L, [place] # (Auto) 0.4, Eos # (Auto) 0.0, Baso # (Auto) 0.1, Total Counted 100, Neutrophils % (Manual) 87 H, Band Neutrophils % 1.0, Lymphocytes % (Manual) 11, Monocytes % (Manual) 1 L, Platelet Estimate Normal, RBC Morphology Normal 08/26/21 14:17: Sodium 130 L, Potassium 4.1, Chloride 97 L, Carbon Dioxide 22, Anion Gap 15.1 H, BUN 18 H, Creatinine 1.40 H, Estimated Creat Clear 45, Estimated GFR 38 L, Est GFR ( Amer) 46 L, Glucose 118 H, Calcium 9.8, Total Bilirubin 0.8, AST 341 H*, ALT 113 H, Alkaline Phosphatase 79, Total Creatine Kinase 67873 H*, Troponin I 1.06 H, NT-Pro-B Natriuret Pep 1340 H, Total Protein 7.2, Albumin 4.3, Globulin 2.9, Albumin/Globulin Ratio 1.5, Lipase 17 L Result diagrams: 08/26/21 14:17 08/26/21 14:17 Orders (Tests/Meds): ED MEDICATIONS Discontinued Medications Generic Name Dose Route Start Last Admin Trade Name Freq PRN Reason Stop Dose Admin Aspirin 325 mg 08/26/21 15:13 08/26/21 16:15 Aspirin 325mg Tablet PO 08/26/21 15:14 325 mg ONCE ONE Administration Sodium Chloride 1,000 mls @ 999 mls/hr 08/26/21 15:15 08/26/21 15:20 Sod Chlor 0.9% 1000ml Bag IV 08/26/21 16:15 999 mls/hr .Q1H1M IRMA Administration ORDERS Category Date Time Status Rapid PCR Covid and Flu A/B Stat Lab 08/26/21 16:02 Ordered Troponin I Q3H Lab 08/26/21 16:45 Ordered Troponin I Q3H Lab 08/26/21 19:45 Ordered Urinalysis and Microscopic Stat Lab 08/26/21 16:14 Received - Radiology Data #1 Image(s): Chest, Pelvis Image Reviewed: Yes I reviewed the patient's radiology results, Yes I reviewed the patient's radiology image, Yes I have reviewed radiologist's interpretation Preliminary Findings: Normal/NAD - CT Data CT Scan: Head Time Received: 16:[address] Reviewed: Yes: I have reviewed the patient's CT results, I have viewed the radiologist's interpretation Preliminary Findings: Normal/NAD - ECG Data Tracing #1 I reviewed this ECG and interpreted as documented below: ECG initial impression date: 08/26/21 ECG initial impression time: 15:18 ECG normal with no acute: arrhythmias, ischemia, conduction abnormalities, chamber hypertrophy Normal Sinus Rhythm: Yes - Reevaluation(s) Time: 16:31 Reevaluation #1: Padma
[2021-08-26 14:58] LABS: Alanine Aminotransferase 113 U/L (12-78); Albumin Level 4.3 g/dl (3.5-5.0); Albumin/Globulin Ratio 1.5 (1.1-1.8); Alkaline Phosphatase 79 U/L (38-126); Anion Gap 15.1 mEq/L (5-15); Aspartate Amino Transferase 341 U/L (14-36); Bilirubin,Total 0.8 mg/dl (0.2-1.3); Blood Urea Nitrogen 18 mg/dl (7-17); Calcium 9.8 mg/dl (8.4-10.2); Carbon Dioxide 22 mmol/L (22.0-30.0); Chloride 97 mmol/L (98-107); Creatinine Clearance Estimated 45 mL/min (50-200); Estimated Glomerular Filt Rate 38 ml/min (>60); GFR (African American) 46 ML/MIN (>60); Globulin 2.9 g/dL (1.3-3.2); Glucose 118 mg/dl (74-100); Lipase 17 U/L (23-300); Potassium 4.1 mmoL/L (3.5-5.1); Sodium 130 mmol/L (136-145); Total Protein,Serum 7.2 g/dl (6.3-8.2)
[2021-08-26 15:00] LABS: Basophils # 0.1 K/mm3 (0-0.2); Basophils % 0.7 % (0.1-2.0); Eosinophils % 0.2 % (0.1-12.0); Hemoglobin 13.5 g/dL (12.2-16.2); Lymphocytes # 0.5 K/mm3 (0.7-4.5); Lymphocytes % 4.8 % (10-50); Mean Corpuscular HGB Conc 33.8 g/dL (31.8-35.4); Mean Corpuscular Hemoglobin 30.5 pg (27.0-31.2); Mean Corpuscular Volume 90.2 fl (81-99); Monocytes # 0.4 K/mm3 (0.1-1.0); Monocytes % 3.2 % (1.7-9.3); Neutrophils # 10.2 K/mm3 (1.8-7.8); Neutrophils % 91.2 % (37.0-80.0); Platelet Count 170 K/mm3 (142-424); Red Blood Count 4.43 M/mm3 (4.20-5.40); Red Cell Distribution Width 14.9 % (11.5-17.5); White Blood Count 11.2 K/mm3 (4.8-10.8)
[2021-08-26 15:03] LABS: MANUAL DIFFERENTIAL MANUAL DIFFERENTIAL (MANUAL DIFF)
[2021-08-26 15:10] LABS: NT Pro Brain Natriuretic Pep. 1340 pg/mL (0-125)
[2021-08-26 15:12] LABS: Troponin I 1.06 ng/ml (0.00-0.034)
--- NOTE | 2021-08-26 15:12 | PC.NURSE ---
notified ER of critical troponin
--- NOTE | 2021-08-26 15:18 | ECG_ITS ---
APPROVED REPORT Exam: Resting ECG HR:76 bpm ECG Measurements Heart Rate 76 AXES MS 164 P 63 QRSd 96 QRS 9 QT 431 T 59 QTc 461 Conclusion SINUS RHYTHM NORMAL ECG UNCONFIRMED REPORT Electronically signed by : William Jensen MD 08/27/2021 21:11:05
[2021-08-26 15:26] LABS: Creatine Kinase 12987 U/L (30-135)
[2021-08-26 16:14] LABS: Lymphocytes % 11 % (10-50); Monocytes % 1 % (2-9); Neutrophils % 87 % (42-76); Platelet Estimate Normal; RBC Morphology Normal; Total Cells Counted 100
[2021-08-26 16:22] LABS: Microscopic, Urine URINE MICROSCOPIC (MICROSCOPIC)
--- NOTE | 2021-08-26 16:27 | PC.NURSE ---
FLORENCE HARTMAN speaking with DR. Lara
--- NOTE | 2021-08-26 16:30 | PC.NURSE ---
notified care management of admission, spoke with Lara
[2021-08-26 16:31] LABS: Appearance,Urine CLEAR (Clear); Bilirubin,Urine Negative (Negative); Blood, Urine 3+ (Negative); Color,Urine YELLOW (Yellow); Glucose,Urine (UA) Negative (Negative); Ketones,Urine 1+ (Negative); Leukocyte Esterase,Urine Negative (Negative); Nitrate,Urine Negative (Negative); PH,Urine 5.5 (5.0-8.5); Protein,Urine Negative (Negative); Urobilinogen,Urine 0.2 EU/dl (0.2)
[2021-08-26 16:36] LABS: Coronavirus 19, PCR Not Detected (NotDetected); Influenza A, PCR Not Detected (NotDetected); Influenza B, PCR Not Detected (NotDetected)
[2021-08-26 16:52] LABS: Squamous Epithelial Cell,Urine Occasional #/hpf (0-5)
--- NOTE | 2021-08-26 17:27 | PC.NURSE ---
attempted to call report. steward/stewardess night to have receiving nurse call for report
--- NOTE | 2021-08-26 17:34 | PC.NURSE ---
report received from Kate rn
--- NOTE | 2021-08-26 18:23 | PC.NURSE ---
Admission completed to the best of ability, pt is confused
[2021-08-26 19:57] LABS: Troponin I 0.97 ng/ml (0.00-0.034)
--- NOTE | 2021-08-26 19:59 | PC.NURSE ---
Florentin Yoo from lab called with a critical troponin of 0.97. Name, , and lab value verified x2. on air director notified.
[2021-08-26 20:25] LABS: Troponin I 0.95 ng/ml (0.00-0.034)
--- NOTE | 2021-08-26 20:26 | PC.NURSE ---
Florentin Yoo called with a critical troponin of 0.95. Name, , and lab value verified x2 MD infection prevention coordinator notified.
[2021-08-26 20:43] LABS: POC Glucose,Bedside 70 (70-110)
[2021-08-27] VITALS (10 sets, daily range): BP systolic 143–166; BP diastolic 71–88; PULSE 75–102; RESP 16–18; TEMP 37–37.6; O2SAT 96–99; BMI 24.8
--- NOTE | 2021-08-27 | CA_ITS ---
APPROVED REPORT Exam: Pharmacologic Technologist: Lashaun Davila, Ht: 5 ft 8 in Wt: 154 lbs BSA: 1.83 m2 HR: 84 bpm BP: 173/99 mmHg Rhythm: NSR, cannot R/O old anterior NC, low voltage QRS Medical History Medical History: HTN, Hyperlipidemia, Diabetic ??? Noninsulin, Smoking Medications: Levothyroxine,,,,, Verapamil,,,,, Trazadone,,,,, Losartan,,,,, Pantoprazole,,,,, Atorvastatin,,,,, Glipizide,,,,, Citalopram,,,,, TopIRAMATE,,,,, Bentyl,,,,, Pregabalin,,,,, WELLBUTIN,,,,, Cardiac Risk Factors: HTN, Hyperlipidemia, , Diabetes (non-insulin), Smoking Stress Test Details Test: LEXISCAN HR Resting HR: 83 bpm Max Heart Rate (APMHR): 159.117434 bpm Max HR Achieved: 123 bpm Target HR (85% APMHR): 135.028801 bpm % of APMHR: 77.36 Recovery HR: 111 bpm BP Resting BP: 173/99 mmHg Max BP: 173/99 mmHg Recovery BP: 164.0/83.0 mmHg ECG Resting ECG: NSR, cannot R/O old anterior NC, low voltage QRS Clinical Exercise duration: 04:00 min Highest Stage Achieved: Stress ECG Conclusion During lexiscan pt experinced mild SOA, [place]. No CP noted. No arrythmias noted. No significant ST changes. Unremarkable lexiscan stress. Myoview images reported separately. Electronically signed by : Vini Robin MD 08/28/2021 09:23:37
--- NOTE | 2021-08-27 03:34 | PC.NURSE ---
Patient remains alert to person and place. She has difficulty remaining oriented to the day of the week and the month, but is able to state the year. Patient has rested well this RN's shift. She is able to ambulate to the bedside commode with 1 assistance and voiding clear, yellow urine. Patient has been normal sinus rhythm on telemetry.
[2021-08-27 05:26] LABS: POC Glucose,Bedside 170 (70-110)
[2021-08-27 06:27] LABS: Basophils # 0.1 K/mm3 (0-0.2); Basophils % 1.7 % (0.1-2.0); Eosinophils # 0.1 K/mm3 (0.0-0.4); Eosinophils % 1.4 % (0.1-12.0); Hematocrit 32.5 % (37.0-47.0); Lymphocytes # 1.8 K/mm3 (0.7-4.5); Lymphocytes % 29.6 % (10-50); Mean Corpuscular HGB Conc 34.3 g/dL (31.8-35.4); Mean Corpuscular Volume 90.4 fl (81-99); Mean Platelet Volume 11.9 fl (7.4-10.4); Monocytes # 0.4 K/mm3 (0.1-1.0); Monocytes % 7.2 % (1.7-9.3); Neutrophils # 3.6 K/mm3 (1.8-7.8); Neutrophils % 60.1 % (37.0-80.0); Platelet Count 133 K/mm3 (142-424); Red Cell Distribution Width 15.2 % (11.5-17.5)
[2021-08-27 06:28] LABS: Hemoglobin 11.2 g/dL (12.2-16.2)
[2021-08-27 06:37] LABS: Anion Gap 11.4 mEq/L (5-15); Blood Urea Nitrogen 12 mg/dl (7-17); Carbon Dioxide 23 mmol/L (22.0-30.0); Chloride 105 mmol/L (98-107); Creatinine Clearance Estimated 69 mL/min (50-200); Estimated Glomerular Filt Rate 56 ml/min (>60); GFR (African American) 68 ML/MIN (>60); Glucose 148 mg/dl (74-100); Potassium 3.4 mmoL/L (3.5-5.1); Sodium 136 mmol/L (136-145)
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
--- NOTE | 2021-08-27 09:32 | HMH.HP ---
*Admission Date: 08/27/21 *Chief complaint: Syncopal episode *History of present illness: 61-year-old female patient presented to the [facility] emergency department after being found down on the floor by her mother. Patient is unsure exactly what transpired, but she does report she has had several episodes of dizziness and lightheadedness and she will sit down before she passes out. She reports this is going on for some time exactly how long she is unsure. She did wear a carton forming machine tender in 2019 and it did not reveal any arrhythmias or cardiac events. Initially in the emergency department CPK was over 12,000 with elevated troponin. Squad reports there was some altered mental status upon arrival and transport, but patient had calm down by arrival at [facility]. [facility] History I have reviewed the patient's past medical history: Yes Medical History: Reports:: Anxiety, Chronic Obstructive Pulmonary Disease (COPD), Cerebrovascular Accident, Deep Vein Thrombosis, Depression, Diabetes Mellitus Type 2, Hyperlipidemia, Hypertension, Lung Disease, Migraine, Renal Disease Denies:: Cancer, Diabetes Mellitus Type 1, Internal Pacemaker, MRSA, Seizures *Have you ever received a pneumonia vaccine?: No *Have you received a flu vaccine this season?: Yes (UNKNOWN) Other Medical History: Reports: Anemia, Arthritis, Hypothyroidism, Thyroid Disease, Other Laterality Cases: Left: Arthroscopy Knee Other Surgeries: Yes: Appendectomy, Cardiac Surgery, Colonoscopy, Tubal Ligation. No: Pacemaker Amputation: No Fractures: Yes - *Social History Smoking Status: Current every day smoker Tobacco Type: cigarettes # Packs/Day (cigarettes): 1 Alcohol Intake: never Substance Use Type: former substance user, opiates, painkillers *Occupational Status:: disabled Housing: house Household Members: family *Travel in the last 8 weeks: None - Psychiatric History Pschychiatric History:: Reports:: Anxiety, Depression Family Hx:: Cancer Review of Systems - Review of Systems Review of systems:: pertinent systems reviewed and negative unless documented below - Constitutional Denies anorexia, Denies lack of energy - Eyes Denies blind spots, Denies double vision - ENT Reports dizziness, Denies difficulty swallowing - *Cardiovascular Reports rapid, pounding, or irregular heartbeat, Denies chest pain, Denies shortness of breath - *Respiratory Denies chest congestion, Denies shortness of breath - *Gastrointestinal Denies abdominal pain, Denies loose stools - *Musculoskeletal Denies joint pain, Denies muscle weakness - Integumentary/Breasts Denies change in hair, Denies change in skin color - *Neurologic Reports behavioral changes, Reports confusion, Denies abnormal speech - Psychiatric Reports confusion, Denies abnormal sleep pattern, Denies difficulty concentrating - Endocrine Denies heat intolerance, Denies rapid, pounding, or irregular heartbeat - Hematologic/Lymphatic Denies easy bleeding, Denies easy bruising - Allergic/Immunologic Denies GI upset with certain foods, Denies tongue swelling Meds Home Medications Medication Instructions Recorded Confirmed Type losartan 25 mg tablet 25 mg PO HS #90 tab 02/27/21 08/27/21 Rx pantoprazole 40 mg tablet,delayed 40 mg PO DAILY #90 tab 02/27/21 08/27/21 Rx release pregabalin 75 mg capsule 75 mg PO BID #60 cap 07/20/21 08/27/21 Rx Atorvastatin Calcium [Lipitor 20mg 20 mg PO HS 08/26/21 08/27/21 History Tab] Citalopram Hydrobromide 20 mg PO DAILY 08/26/21 08/27/21 History [Citalopram HBr] Hydrocodone/Acetaminophen 1 tab PO Q8HP PRN 08/26/21 08/27/21 History [Hydrocodone-Acetamin 7.5-325] Levothyroxine Sodium 100 mcg PO DAILY 08/26/21 08/27/21 History [Levothyroxine 100mcg (0.1MG) Tab] Tizanidine HCl 4 mg PO Q6HP PRN 08/26/21 08/27/21 History Topiramate 50 mg PO BID 08/26/21 08/27/21 History Verapamil HCl [Verapamil ER] 180 mg PO BID 08/26/21 05
--- NOTE | 2021-08-27 10:02 | NM_ITS ---
APPROVED REPORT Exam: Nuclear Stress Test Indication: Chest pain, Syncope, DM, High cholesterol, Tobacco use Patient Location: Inpatient Stress Tech: Lashaun FRAIRE Tech:VISHNU Hoang RT(R)(N) Ht: 5 ft 8 in Wt: 165 lbs Bra Size: 36D HR: 83 bpm BP: 173/99 mmHg BSA: 1.88 m2 TID: 83 BMI: 25.0 History: Chest pain, Syncope, DM, High cholesterol, Tobacco use Procedure: Patient received a 0.4 mg of intravenous Lexiscan, resting heart rate 83 bpm, resting blood pressure 173/99 mmHg, with Lexiscan maximum heart rate achived was 123 bpm which is Less than 85 % of the maximum predicted heart rate and blood pressure was 173/99 mmHg. With Lexiscan, patient denied any complaint of chest pain. Electrocardiogram Resting electrocardiogram showed sinus rhythm, with Lexiscan there is less than 1.[address] segment depression noted from the baseline EKG. The EKG portion of the Lexiscan is nondiagnostic. Cardiac Stress and Resting SPECT Images: Cardiac Stress and Resting SPECT images were obtained using technetium 99m Myoview 32.5 mCi stress and 10.25 mCi at rest. Gated SPECT for analysis of segmental wall motion and calculation of the ejection fraction also done. Cardiac stress and resting SPECT images show a mild fixed defect in the anterior wall with normal contractility in the gated SPECT is likely secondary to soft tissue attenuation, no reversible ischemia seen, computer derived ejection fraction is 55% with no regional wall motion abnormality, right ventricle is normal size and contractility. Conclusion: 1. The EKG portion of the Lexiscan is nondiagnostic. 2. No obvious scintigraphic evidence of reversible ischemia seen, computer derived ejection fraction is 55% with no regional wall motion abnormality, right ventricle is normal size and contractility. 3. Likely normal Lexiscan Myoview study. Electronically signed by : Vini Robin MD 08/28/2021 09:28:15
--- NOTE | 2021-08-27 10:03 | CA_ITS ---
FINAL REPORT TECHNIQUE: Color Doppler, duplex Doppler and alarcon scale sonography of the bilateral neck arterial vasculature was performed. Velocities were measured in the carotid arteries. Stenosis evaluation based on the validated velocity criteria. CLINICAL HISTORY: RENETTA, syncope, dizziness FINDINGS: The peak systolic velocity of the right common carotid artery is 120 cm/s. The peak systolic velocity of the right internal carotid artery is 101 cm/s and end diastolic velocity 36 cm/s. A small amount of plaque is present. The right external carotid artery is patent. The right vertebral artery is patent with antegrade flow. ICA/CCA ratio: 1.0 The peak systolic velocity of the left common carotid artery is 106 cm/s. The peak systolic velocity of the left internal carotid artery is 141 cm/s and end diastolic velocity 62 cm/s. A small amount of plaque is present. The left external carotid artery is patent.The left vertebral artery is patent with antegrade flow. ICA/CCA ratio: 1.6 IMPRESSION: Less than 50% bilateral carotid stenoses. Bilateral patent vertebral arteries with antegrade flow. If indicated, CTA or MRA could further evaluate. Reviewed, Interpreted and Dictated by Denzel Chowdhury III, MD Transcribed by Eran Tellez Authenticated by Denzel Chowdhury III, MD on 08/27/2021 12:26:[address] [facility]
--- NOTE | 2021-08-27 10:03 | CA_ITS ---
APPROVED REPORT EXAM: Comprehensive 2D, Doppler, and color-flow Echocardiogram Solar Process Engineer: HERNANDEZ Trimble, RVS Ht: 5 ft 8 in Wt: 164lbs BSA: 1.88 BP: 144/71 mmHg Indications: COPD, CVA, Syncope,HTN, Rhabdo 2D Dimensions IVSd 0.88 cm LVEF (Visual) 61.40 % PWd 0.82 cm LA Volume 48.40 mL LVDd 5.18 cm LA Volume Index 25.493023 mL/m2 (M/F) 16-34 LVDs 3.46 cm Aortic Root 3.21 cm Left Atrium 3.12 cm LVOT 1.86 cm (M/F) 1.5-2.5 M-Mode Dimensions RVDd 3.19 cm (0.9-2.6) LA Diam 3.68 cm (1.9-4.0) LVDd 4.83 cm (3.5-5.7) Ao Diam 3.28 cm (2.0-3.7) LVDs 3.23 cm (3.5-5.7) IVSd 0.95 cm (0.6-1.1) PWd 0.84 cm (0.6-1.1) EF (Teich) 61.60% EPSs 0.72 cm FS 33.10% EDV (Teich) 109.10 mL TAPSE 2.26 (<1.7) ESV (Teich) 41.90 mL LV Diastology E Decel Time 143.00 (160-240 msec) E/A Ratio 0.98 MED E' 11.40 (< 7 cm/sec) MED A' 13.70 cm/s E'/MED E' Ratio 7.37 (>14) LAT E' 14.50 (<10 cm/sec) LAT A' 12.60 cm/s E/LAT E' Ratio 5.79 (>14) Aortic Valve LVOT Max 116.00 (70-110 cm/s) LVOT VTI 24.22 cm AoV Peak Davon. 156.00 (50-130 cm/s) AO Peak GR. 9.80 mmHg AO Mean GR. 4.80 (<5 mmHg) AO VTI 30.60 (18-25 cm) DARRICK (VTI) 2.15 (2.5-4.5 cm2) Mitral Valve MV A Velocity 86.00 (40-130 cm/s) E/A Ratio 0.98 MV Decel. Time 143.00 (160-240 ms) MV Mean Gr. 1.60 (<2mmHg) MV PHT 43.00 ms Pulmonary Valve PV Peak Velocity 97.00 (50-150 cm/s) Left Ventricle Left atrium is normal size, left ventricle is normal size, there is no concentric left ventricular hypertrophy, estimated ejection fraction 55% with no regional wall motion abnormality. Diastolic parameters are within normal range. Right Ventricle Right atrium and right ventricle are mildly enlarged with normal contractility. Atria Intra-atrial septum is not well visualized, repeat study with saline contrast is recommended. Aortic Valve Aortic valve is minimally thickened and fibrosed there is no aortic stenosis or aortic insufficiency. Mitral Valve Mitral valve is grossly normal, there is trace mitral regurgitation. Tricuspid Valve Tricuspid grossly normal, there is trace tricuspid regurgitation, tricuspid regurgitation jet velocity is inadequate for calculation of the right ventricular systolic pressure. Pulmonic Valve Pulmonic valve is poorly visualized. Great Vessels Aortic root is normal size. Inferior vena cava normal size with normal spectral collapse. Pericardium No significant pericardial effusion noted. Conclusion 1. Normal left ventricular size, preserved left ventricular systolic function, estimated ejection fraction 55% with no regional wall motion abnormality, diastolic parameters are within normal range. 2. Mildly enlarged right ventricle with normal contractility. 3. Interatrial septum is not well visualized, repeat study with saline contrast study is recommended to exclude presence of intracardiac shunt. 4. Trace mitral and tricuspid regurgitation. 5. No significant pericardial effusion. 6. Inferior vena cava is normal size with normal inspiratory collapse. Electronically signed by : Vini Robin MD 08/28/2021 14:00:44
--- NOTE | 2021-08-27 10:17 | P.CONPHA_ITS ---
[facility] Pharmacy VTE Monitoring - Patient Demographics Admission date: 08/27/21 Report Date: 08/27/21 Time: 10:17 Allergies/Adverse Reactions: Patient Allergies rifampin [RIFAMPIN] Allergy (Severe, Verified 08/21/21 15:53) UNABLE TO BREATH tetanus and diphtheria toxoids [TETANUS & DIPHTHERIA TOXOIDS] Allergy (Mild, Verified 08/21/21 15:53) RED tuberculin, purified protein deriva Allergy (Verified 08/21/21 15:53) Unknown allergy reaction metformin Adverse Reaction (Intermediate, Verified 08/21/21 15:53) diarrhea Height: 1.73 m Weight: 74.389 kg Patient Problems: Current Active Problems (Last Updated 10/17/17 @ 14:24 by SHAVON Armenta) Rhabdomyolysis (Acute) Acute kidney injury (Acute) Altered mental status (Acute) Syncope (Chronic) Tobacco use (Chronic) Hypothyroidism (Chronic) Diabetes (Chronic) Hyperlipidemia (Chronic) - VTE Risk Labs: VTE Related Lab Results Hgb 11.2 g/dL (12.2-16.2) L D 08/27/21 05:42 Hct 32.5 % (37.0-47.0) L 08/27/21 05:42 Plt Count 133 K/mm3 (142-424) L 08/27/21 05:42 BUN 12 mg/dl (7-17) D 08/27/21 05:42 Creatinine 1.00 mg/dl (0.52-1.04) D 08/27/21 05:42 Estimated Creat Clear 69 mL/min (50-200) 08/27/21 05:42 Was VTE Risk Assessment Performed: Yes VTE Score: 7 VTE Risk Level: Moderate Risk Clinical Trial Participant: No - Prophylaxis VTE Prophylaxis Ordered?: Yes Types of VTE Prophylaxis: TEDS Knee High, Pharmacological Pharmacologic Type: Enoxaparin
--- NOTE | 2021-08-27 10:50 | HMH.PHAINT ---
MEDICATION RECONCILIATION COMPLETED ON PATIENT USING EXTERNAL FILL HISTORY FROM PHARMACY. -KEVON RICO, ROVERTOD
--- NOTE | 2021-08-27 14:38 | PC.NURSE ---
Pt is alert to self and place. She has ambulated to the bathroom with assist x1. She's been NSR on telemetry. Appetite has been poor. No complaints of dizziness reported. She is currently off the floor for testing.
[2021-08-27 17:11] LABS: POC Glucose,Bedside 149 (70-110)
[2021-08-28] VITALS: BP 119/68; PULSE 65; PULSE 76; RESP 16; TEMP 37.3; O2SAT 97
[2021-08-28 04:00] VITALS: BP 131/70; PULSE 64; PULSE 75; RESP 14; TEMP 37; O2SAT 95
--- NOTE | 2021-08-28 04:58 | PC.NURSE ---
PT HAS BEEN ALERT AND ORIENTED THIS SHIFT, NO ISSUES WITH CONFUSION NOTED, BED ALARM REMAINS ON, PT WAS ISSUED EPO PAPERS AT START OF SHIFT AND WAS EMOTIONAL AT THIS TIME, VSS, TELE IS NSR, NO OTHER ISSUES NOTED, PT RESTED WELL THROUGH THE NIGHT
[2021-08-28 05:00] VITALS: BMI 25.1
[2021-08-28 06:27] LABS: Basophils # 0.1 K/mm3 (0-0.2); Eosinophils # 0.1 K/mm3 (0.0-0.4); Eosinophils % 2.4 % (0.1-12.0); Hematocrit 31.8 % (37.0-47.0); Hemoglobin 10.9 g/dL (12.2-16.2); Lymphocytes % 37.4 % (10-50); Mean Corpuscular HGB Conc 34.3 g/dL (31.8-35.4); Mean Corpuscular Hemoglobin 31.2 pg (27.0-31.2); Mean Corpuscular Volume 91.1 fl (81-99); Mean Platelet Volume 10.9 fl (7.4-10.4); Monocytes # 0.3 K/mm3 (0.1-1.0); Monocytes % 5.7 % (1.7-9.3); Neutrophils # 2.8 K/mm3 (1.8-7.8); Neutrophils % 53.5 % (37.0-80.0); Platelet Count 123 K/mm3 (142-424); Red Blood Count 3.49 M/mm3 (4.20-5.40); Red Cell Distribution Width 15.4 % (11.5-17.5); White Blood Count 5.3 K/mm3 (4.8-10.8)
[2021-08-28 06:31] LABS: Anion Gap 8.3 mEq/L (5-15); Blood Urea Nitrogen 7 mg/dl (7-17); Carbon Dioxide 25 mmol/L (22.0-30.0); Chloride 104 mmol/L (98-107); Creatinine Clearance Estimated 70 mL/min (50-200); Estimated Glomerular Filt Rate 64 ml/min (>60); GFR (African American) 77 ML/MIN (>60); Glucose 116 mg/dl (74-100); Potassium 3.3 mmoL/L (3.5-5.1); Sodium 134 mmol/L (136-145)
[2021-08-28 06:47] LABS: Alanine Aminotransferase 70 U/L (12-78); Aspartate Amino Transferase 128 U/L (14-36)
[2021-08-28 06:57] LABS: Creatine Kinase 2632 U/L (30-135)
[2021-08-28 07:17] VITALS: BP 161/76; PULSE 71; RESP 20; TEMP 36.9; O2SAT 97
[2021-08-28 08:00] VITALS: O2SAT 95
--- NOTE | 2021-08-28 09:52 | HMH.DCSUM ---
General - General Admission date:: 08/26/21 Discharge date: 08/28/21 HPI HPI: 61-year-old female patient presented to the [facility] emergency department after being found down on the floor by her mother. Patient is unsure exactly what transpired, but she does report she has had several episodes of dizziness and lightheadedness and she will sit down before she passes out. She reports this is going on for some time exactly how long she is unsure. She did wear a technical training manager in 2019 and it did not reveal any arrhythmias or cardiac events. Initially in the emergency department CPK was over 12,000 with elevated troponin. Squad reports there was some altered mental status upon arrival and transport, but patient had calm down by arrival at [facility]. Hospital Course Hospital Course: Abnormal Lab Results 08/27/21 17:03: POC Glucose 149 H 08/28/21 06:06: AST 128 H D, Total Creatine Kinase 2632 H* D 08/28/21 06:06: RBC 3.49 L, Hgb 10.9 L, Hct 31.8 L, Plt Count 123 L, MPV 10.9 H 08/28/21 06:06: Sodium 134 L, Potassium 3.3 L, Glucose 116 H Cardiology consult:Assessment and plan all Dx Assessment and Plan for all problems:: 1. Syncope, unknown etiology. No acute EKG changes and no significant arrhythmias noted on telemetry. Will obtain echocardiogram and carotid ultrasound. Continue to monitor on telemetry. Orthostatic vital signs show mild decrease with sitting but increasing blood pressure with standing. 2. Elevated troponin in the setting of rhabdomyolysis, will obtain BTC Tripiscan Myoview for further evaluation due to multiple cardiac risk factors. 3. Diabetes mellitus, per PCP 4. Mild carotid artery disease, repeat carotid ultrasound 5. History of palpitations with prior event monitor unremarkable. Continue to monitor on telemetry 6. Tobacco use, cessation recommended 7. Acute kidney injury, improved with IV fluids. Further recommendations to follow pending above results. Discharge Plan (1) Acute kidney injury- improved with IV fluids,stable, improved cre, tck- 2632 down from [id number]. (2) Rhabdomyolysis -tck- 2632 down from [id number]. (3) Altered mental status-alert and oriented x3, carotid duplex wnl, stress test wnl (4) Diabetes-continue meds and follow up in office (5) Hyperlipidemia-continue meds and follow up (6) Hypothyroidism-continue meds and follow up in office (7) Syncope-carotid duplex wnl, stress test wnl (8) Tobacco use-encouraged to stop smoking will dc home and follow up in office on Tuesday with Dr Rollins Objective Vital signs: Temp Pulse Resp BP Pulse Ox 98.5 F 71 20 161/76 H 97 08/28/21 07:17 08/28/21 07:17 08/28/21 07:17 08/28/21 07:17 08/28/21 07:17 no acute distress - *Routine HEENT Exam Head: Present: normocephalic Eye: Present: PERRL, other ENT: Present: mucous membranes moist Comments: rt eye turned in chronic - *Routine Neck Exam Present: supple - *Routine Respiratory Exam Present: CTA bilaterally - *Routine Cardiovascular Exam Present: RRR - *Routine Abdominal Exam Present: soft, normoactive bowel sounds. Absent: tenderness - *Routine Extremities Exam Absent: cyanosis, clubbing, edema - *Routine Skin Exam Present: warm. Absent: rash - Detailed Eye Exam Eyelids: Bilateral normal inspection Results Labs on day of discharge: Labs from last 24 hours 08/28/21 08/28/21 08/28/21 06:06 06:06 06:06 WBC 5.3 RBC 3.49 L Hgb 10.9 L Hct 31.8 L MCV 91.1 MCH 31.2 MCHC 34.3 RDW 15.4 Plt Count 123 L MPV 10.9 H Neut % (Auto) 53.5 Lymph % (Auto) 37.4 [place] % (Auto) 5.7 Eos % (Auto) 2.4 Baso % (Auto) 1.0 Neut # (Auto) 2.8 Lymph # (Auto) 2.0 [place] # (Auto) 0.3 Eos # (Auto) 0.1 Baso # (Auto) 0.1 Sodium 134 L Potassium 3.3 L Chloride 104 Carbon Dioxide 25 Anion Gap 8.3 BUN 7 D Creatinine 0.90 Est
--- NOTE | 2021-08-28 10:11 | HMH.PNCARD ---
Subjective Date: 08/28/21 Time: 10:11 Principal diagnosis: syncope Interval history: 61-year-old white female in bed in no acute distress. Denies any chest pain, pressure or tightness overnight. No further episodes of syncope noted. Telemetry shows no arrhythmias. Lexiscan Myoview shows no evidence of ischemia with normal ejection fraction. Carotid artery disease is stable. Echocardiogram shows normal ejection fraction with no significant valvular heart disease. Exam Vital signs and Labs for Last 24 Hours: Temp Pulse Resp BP Pulse Ox 98.5 F 71 20 161/76 H 97 08/28/21 07:17 08/28/21 07:17 08/28/21 07:17 08/28/21 07:17 08/28/21 07:17 Laboratory Results - last 24 hr 08/27/21 17:03: POC Glucose 149 H 08/28/21 06:06: AST 128 H D, ALT 70 D, Total Creatine Kinase 2632 H* D 08/28/21 06:06: WBC 5.3, RBC 3.49 L, Hgb 10.9 L, Hct 31.8 L, MCV 91.1, MCH 31.2, MCHC 34.3, RDW 15.4, Plt Count 123 L, MPV 10.9 H, Neut % (Auto) 53.5, Lymph % (Auto) 37.4, [place] % (Auto) 5.7, Eos % (Auto) 2.4, Baso % (Auto) 1.0, Neut # (Auto) 2.8, Lymph # (Auto) 2.0, [place] # (Auto) 0.3, Eos # (Auto) 0.1, Baso # (Auto) 0.1 08/28/21 06:06: Sodium 134 L, Potassium 3.3 L, Chloride 104, Carbon Dioxide 25, Anion Gap 8.3, BUN 7 D, Creatinine 0.90, Estimated Creat Clear 70, Estimated GFR 64, Est GFR ( Amer) 77, Glucose 116 H, Calcium 9.0 I & O for Last 24 hours: Intake & Output 08/25/21 08/26/21 08/27/21 08/28/21 11:59 11:59 11:59 11:59 Intake Total 1497 / 1497 2532 / 2532 Output Total 525 / 525 Balance 972 / 972 2532 / 2532 Weight 164 lb 0.03 oz 165 lb 12.8 oz - Constitutional no acute distress - *Routine Respiratory Exam Present: CTA bilaterally - *Routine Cardiovascular Exam Present: RRR - *Routine Neurological Exam Present: alert, oriented X3 Progress Note: A&P (1) Acute kidney injury Status: Acute (2) Rhabdomyolysis Status: Acute (3) Altered mental status Status: Acute (4) Diabetes Status: Chronic (5) Hyperlipidemia Status: Chronic (6) Hypothyroidism Status: Chronic (7) Syncope Status: Chronic (8) Tobacco use Status: Chronic Assessment and Plan for All Diagnoses:: 1. Syncope, unknown etiology. No acute EKG changes and no significant arrhythmias noted on telemetry. Orthostatic vital signs show mild decrease with sitting but increasing blood pressure with standing. If she has recurrent episodes then will consider placement of loop recorder. 2. Elevated troponin in the setting of rhabdomyolysis, Lexiscan Myoview negative for ischemia with normal ejection fraction. No further cardiac work-up at this time. 3. Diabetes mellitus, per PCP 4. Mild carotid artery disease, repeat carotid ultrasound shows less than 50% stenosis bilaterally. 5. History of palpitations with prior event monitor unremarkable. No significant arrhythmias on telemetry. 6. Tobacco use, cessation recommended 7. Acute kidney injury, improved with IV fluids. Okay from cardiac standpoint for discharge when PCP is ready. Resume home medications. Follow-up in our office in 2 weeks.
--- NOTE | 2021-08-28 10:20 | HMH.PTEV ---
Physical Therapy Evaluation Rehab PT IP Evaluation Start: 08/28/21 09:58 Freq: ONCE Status: Active Protocol: Document 08/28/21 10:16 ROJELIO (Rec: 08/28/21 10:20 PHOBHAVESH [id number]) Subjective/History History History 61 yowf adm to [facility] after fall at home with syncopal episode and rhabdomyolysis. She reports she lives alone, 2 steps to enter the home, Independent with all mobility without AD. Subjective Subjective Pt reports mild R post shld discomfort this am, but states I think it was how I was positioned for the stress test yesterday. Rehab PT IP Eval Objective Appearance Patient Behavior Appropriate Patient Orientation Person,Place,Time Difficulty following instructions none Speech Pattern Clear Ambulation Patient Able to Ambulate Yes Ambulation Observation IP General Gait Pattern Observation Shuffling Step Ambulation Distance (feet) 40 Ambulation Assistive Device None Ambulation Ability Independent Balance Ability to Arise Able, uses arms to help Sitting Balance Steady, safe Standing Balance Steady, wide stance Dynamic Sitting Balance Ability Good Dynamic Standing Balance Ability Good Transfers Bed Transfer Ability Independent Chair Transfer Ability Independent Sit to Stand Bed Transfer Ability Independent Sit to Stand Chair Transfer Ability Independent Rehab PT IP prob,goals,plan Problems Date of Evaluation: 08/28/21 Discharge Plan PT Discharge Plan Pt presents at baseline for all mobility and is appropriate to return home once medically stable. G -code Required No Eval Complexity Eval Charge Codes 49211 - Moderate Complexity PHYSICIAN CERTIFICATION: I certify the specified therapy services for Betzaida Ramirez are required, authorized, and reviewed every 30 days.
--- NOTE | 2021-08-28 10:37 | HMH.PHAINT ---
DISCHARGE COUNSELING COMPLETED. PT INSTRUCTED TO HOLD ZANAFLEX, LORTAB AND BENTYL UNTIL MD PFFICE FOLLOWUP. PT VERY UNRESPONSIVE TO COUNSELING AND ANSWERED TELEPHONE IN MIDDLE OF DISCUSSION. INSTRUCTIONS LEFT WITH PT.
--- NOTE | 2021-08-28 11:22 | SW/DCPLANNER ---
I have provided this patient with information regarding [employer]. Patient stated that she would have transportation home this afternoon: brother works technical photographer and will transport her home once he wakes up.
[2021-08-28 12:00] VITALS: BP 149/78; PULSE 80; RESP 20; TEMP 37.1; O2SAT 97
--- NOTE | 2021-08-28 13:54 | PC.NURSE ---
late entry. rounded on patient this morning. no concerns about medication changes. did ask if a marine habitat resource specialist or mental health professional could see he before she left. order placed for [facility] [place] however, marine habitat resource specialist did come up and speak with her and she requested to go on home rather than wait to meet with behavioral health. stated she would call and arrange an outpatient appointment with her dependent on her ride situation.
--- NOTE | 2021-08-31 15:02 | CARE MANAGER ---
Patient did not answer to do post-discharge phone interview.
== END 2021-08-28 13:30 | disposition home or self-care (01) | DRG 683 ==
LOC: ER 16:33 → 2ND 16:54
PROVIDERS: Nurse Practitioner Family; Admitting Provider Emergency Medicine; Emergency Provider Emergency Medicine; PCP Emergency Medicine; Visit Provider Emergency Medicine
DX: N17.9 Acute kidney failure, unspecified (principal); M62.82 Rhabdomyolysis; Z20.822 Contact with and (suspected) exposure to COVID-19; W01.0XXA Fall on same level from slipping, tripping and stumbling without subsequent striking against object, initial encounter; Z71.6 Tobacco abuse counseling; E11.9 Type 2 diabetes mellitus without complications; E78.5 Hyperlipidemia, unspecified; E03.9 Hypothyroidism, unspecified; R55 Syncope and collapse; Z86.73 Personal history of transient ischemic attack (TIA), and cerebral infarction without residual deficits; F17.210 Nicotine dependence, cigarettes, uncomplicated; J44.9 Chronic obstructive pulmonary disease, unspecified
CPT/HCPCS: 36415; 70450; 71045; 72170; 78452; 80048; 80053; 81001; 82550; 82962; 83690; 83880; 84450; 84460; 84484; 85007; 85025; 93005; 93017; 93306; 93880; 97162; 99285; A9502; C9803; J2785; U0003; U0005

== ENCOUNTER → 2021-10-23 14:09 | Outpatient (CLI) | payer MEDICARE, SELFPAY ==
[2021-10-23 14:09] LABS: Amphetamine/Metha Screen,Urine Negative ng/ml (<1000); Barbiturates Screen,Urine Negative ng/ml (<200)
[2021-10-23 14:10] LABS: Benzodiazepines Screen,Urine Negative ng/ml (<200)
[2021-10-23 14:11] LABS: Cannabinoid Screen,Urine Negative ng/ml (<50); Cocaine Screen,Urine Negative ng/ml (<300)
[2021-10-23 14:12] LABS: Methadone Screen,Urine Negative ng/ml (<300); Opiate Screen,Urine Negative ng/ml (<300)
[2021-10-23 14:13] LABS: Phencyclidine Screen,Urine Negative ng/ml (<25)
== END ==
PROVIDERS: PCP Emergency Medicine; Visit Provider Emergency Medicine
DX: M51.36 Other intervertebral disc degeneration, lumbar region (principal)
CPT/HCPCS: 80305